=== PATIENT | male | born 1955 | race Caucasian/White ===

== ENCOUNTER 2018-04-14 13:56 | Inpatient (IN) ==
[2018-04-14] MEDS ORDERED: NITROGLYCERIN SL PRN (14:32)
[2018-04-14] MEDS: NORCO-10 PO PRN ×2 (15:46→21:57)
[2018-04-14 16:21] LABS: HEMATOCRIT 41.3 % (42.0-52.0); HEMOGLOBIN 14.7 g/dL (14.0-18.0); MCH 31.3 PG (27-31); MCHC 35.6 g/dL (33-37); MCV 87.9 FL (81-99); MPV 9.6 FL (7.4-10.4); RBC 4.7 XMIL (4.7-6.1); RDW 12.8 % (11.5-14.5); WBC 14.86 X1000 (4.8-10.8)
--- NOTE | 2018-04-14 16:36 | EKG Report ---
Test Performed on : 04/14/2018 3:58:10 PM Test Reason : Femoral artery occlusion Blood Pressure : / mmHG Vent. Rate : 094 BPM Atrial Rate : 094 BPM P-R Int : 160 ms QRS Dur : 102 ms QT Int : 372 ms P-R-T Axes : 072 068 068 degrees QTc Int : 465 ms Normal sinus rhythm. Normal ECG When compared with ECG of 13-NOV-2009 13:35, No significant change was found Confirmed by Lazara FLORES, Garcia Nicole ([id number]) on 04/14/2018 4:43:02 PM
[2018-04-14 16:44] LABS: ESTIMATED GFR > 60
[2018-04-14 16:46] LABS: AGAP 15; BUN 8 mg/dL (8-22); CALCIUM 8.7 mg/dL (8.8-10.2); CHLORIDE 83 mmol/L (98-107); COSMO 246; CREATININE 0.7 mg/dL (0.7-1.2); GLUCOSE 102 mg/dL (70-104); INR 1.7; POTASSIUM 3.6 mmol/L (3.5-5.1); PROTIME 21.3 Seconds (11.0-16.0); SODIUM 123 mmol/L (136-145); TCO2 25 mmol/L (25-35)
[2018-04-14] MEDS ORDERED: DULCOLAX PR ONE (17:33)
[2018-04-14 18:17] LABS: URINE SOURCE CATH
[2018-04-14 18:28] LABS: BILIRUBIN URINE NEGATIVE (NEGATIVE); BLOOD URINE MODERATE (NEGATIVE); COLOR YELLOW; GLUCOSE URINE NEGATIVE (NEGATIVE); KETONE URINE NEGATIVE (NEGATIVE); LEUKOCYTES URINE NEGATIVE (NEGATIVE); NITRITE URINE NEGATIVE (NEGATIVE); PROTEIN URINE TRACE mg/dL (NEGATIVE); TURBIDITY URINE CLEAR (CLEAR); UR EPITHELIAL CELLS <10 /HPF (<10); URINE BACTERIA NEGATIVE /HPF; URINE RBC <10 /HPF (<10); URINE WBC <10 /HPF (<10); UROBILINOGEN URINE 2 mg/dL (NORMAL)
[2018-04-14] MEDS: VENTOLIN HFA INH SCH (19:00)
[2018-04-14] MEDS: REQUIP PO SCH (21:56)
[2018-04-14] MEDS: LYRICA PO SCH (21:58)
[2018-04-15] MEDS: NORCO-10 PO PRN ×3 (03:38→19:49)
--- NOTE | 2018-04-15 07:43 | ECHO REPORT ---
ORDER DATE: 04/14/2018 INDICATIONS: A patient with severe peripheral vascular disease, hypertension. M-MODE MEASUREMENTS: Left ventricle end diastole: 4.9 cm. Left ventricle end systole: 2.7 cm. Posterior wall: 0.9 cm. Interventricular septum: 0.9 cm. Left atrium: 3.3 cm. Aortic root: 2.9 cm. SUMMARY OF 2-DIMENSIONAL IMAGIN. The left ventricular systolic function is excellent. Ejection fraction is estimated at 65%. There is no wall motion abnormality noted. 2. Aortic valve looks normal. Color flow mapping unremarkable. 3. Mitral valve looks normal. Color flow mapping indicates very mild degree of regurgitation. 4. Pulse wave Doppler of mitral inflow shows mild reversal of the E/A ratio. The ratio is 0.8. 5. Tissue Doppler of septal and lateral mitral annulus averages 10 cm. 6. There is no diastolic dysfunction. 7. Tricuspid valve looks normal. Color flow mapping indicates mild degree of regurgitation. 8. The inferior vena cava is not dilated. 9. Pulmonary artery pressure estimated at 23 mmHg. 10.Pulmonic valve looks normal. Color flow mapping unremarkable. 11.The atria are not dilated. 12.Pulse wave Doppler of pulmonary venous flow is normal. 13.There is no pericardial effusion, mass and no thrombus. SUMMARY: In summary, this echocardiographic study is well within normal range for this patient's age. Clinical correlation recommended. cc: MD Mynor Gonzales MD
[2018-04-15] MEDS: VENTOLIN HFA INH SCH (08:04)
[2018-04-15] MEDS: SPIRIVA INH SCH (08:05)
--- NOTE | 2018-04-15 08:32 | GENERAL SURGERY PROGRESS NOTE ---
DATE: 04/15/2018 SUBJECTIVE: Mr. Oro was admitted yesterday in preparation for surgery on 04/16/2018. We have stopped his Coumadin. He does report in the past 2 days the onset of left leg pain that is worse than his right leg pain. This is a new finding. OBJECTIVE: Today, he is noted to have some Doppler flow in his left femoral; no Doppler flow in the right femoral. His left lower extremity is cooler than the right. He already has known SFA occlusions bilaterally. His laboratory data reveals a sodium of 123, chloride of 83, so, we will put him on saline today to try to raise that. We will have blood available for surgery. His echo was done yesterday and found to be okay. Dr. Jones has seen him and evaluated him in the past in preparation for surgery and did not feel that any further intervention was indicated at this time for heart evaluation. We will plan to prepare things for tomorrow for surgery in hopes that we can get his graft open and salvage his legs. cc: Mynor Higgins MD
[2018-04-15] MEDS: NS 1,000 ML IV SCH ×2 (08:55→16:42)
[2018-04-15] MEDS: PRILOSEC PO SCH (08:59)
[2018-04-15] MEDS: ELAVIL PO SCH (08:59)
[2018-04-15] MEDS: IMDUR PO SCH (09:00)
[2018-04-15] MEDS ORDERED: PRAVACHOL PO SCH (09:00)
[2018-04-15] MEDS: FLOMAX PO SCH (09:00)
[2018-04-15 09:01] LABS: AGAP 10; BUN 9 mg/dL (8-22); CALCIUM 8.4 mg/dL (8.8-10.2); CHLORIDE 87 mmol/L (98-107); COSMO 251; CREATININE 0.7 mg/dL (0.7-1.2); ESTIMATED GFR > 60; GLUCOSE 115 mg/dL (70-104); POTASSIUM 4.3 mmol/L (3.5-5.1); SODIUM 125 mmol/L (136-145); TCO2 28 mmol/L (25-35)
[2018-04-15] MEDS: PRINIVIL PO SCH (09:01)
[2018-04-15] MEDS: AVODART PO SCH (09:01)
[2018-04-15] MEDS: LYRICA PO SCH ×2 (09:10→20:37)
--- NOTE | 2018-04-15 12:42 | Diag Imaging Result Doc PS360 ---
EXAM: CHEST-PORTABLE 04/15/2018 HISTORY: hyponatremia TECHNIQUE: AP portable at 1210 COMMENT: There is ill-defined opacity in the left base including the costophrenic angle. The lungs are not as well-expanded as on 11/12/2014. IMPRESSION: Left lower lobe pneumonia. Electronically signed by Montrell De Leon 04/15/2018 12:40 PM
[2018-04-15 13:17] LABS: HEMOGLOBIN A1C 5.9 % (4.8-6.0)
[2018-04-15 13:20] LABS: ALB/GLOB RATIO 0.7; ALBUMIN 2.6 g/dL (3.5-5.0); BASO# 0.03 X1000 (0.0-0.2); BASO% 0.2 % (0.0-0.8); DIRECT BILIRUBIN 0.2 mg/dL (0.00-0.20); EOS# 0.12 X1000 (0.0-0.7); EOS% 0.8 % (0.0-10.0); HEMATOCRIT 39.2 % (42.0-52.0); HEMOGLOBIN 13.4 g/dL (14.0-18.0); IMM GRAN# 0.06 X1000 (0.0-0.04); IMM GRAN% 0.4 % (0.0-0.5); LYMPH# 1.26 X1000 (1.2-3.4); LYMPH% 8.5 % (20.5-51.1); MCH 30.8 PG (27-31); MCHC 34.2 g/dL (33-37); MCV 90.1 FL (81-99); MONO# 0.66 X1000 (0.11-0.59); MONO% 4.4 % (1.7-9.3); MPV 9.4 FL (7.4-10.4); NEUT# 12.76 X1000 (1.4-6.5); NEUT% 85.7 % (42.2-75.2); PLT 288 X1000 (130-400); RBC 4.35 XMIL (4.7-6.1); RDW 13.1 % (11.5-14.5); TOTAL BILIRUBIN 0.43 mg/dL (0.20-1.00); TOTAL PROTEIN 6.3 g/dL (6.3-8.3); WBC 14.89 X1000 (4.8-10.8)
[2018-04-15] MEDS ORDERED: VANCOMYCIN IV PER PHARMACY MISC SCH (13:30)
[2018-04-15 13:44] LABS: ALLEN TEST NO; BE 0.8 mmoll (-3.0-3.0); BLOOD TYPE ARTERIAL; HCO3-(ACT) 25.3 mmoll (20.0-26.0); O2(CT) 17.8 mL/dL (15.0-23.0); PCO2(98.6) 39 mmHg (35-45); PO2(98.6) 60 mmHg (60-100); SAMPLE BLOOD; SAO2 93.3 % (95.0-100.0); THB 14.1 g/dL (11.5-17.4); pH(98.6) 7.42 (7.35-7.45)
[2018-04-15 13:51] LABS: O2HB 89.7 % (95.0-99.0)
[2018-04-15 13:52] LABS: MODALITY ROOM AIR
[2018-04-15] MEDS ORDERED: MAXIPIME 1 GM in NS 50 ML IV SCH (14:00)
[2018-04-15 14:09] LABS: CK INDEX 1.9 (0.0-2.5); CK-MB 27.38 ng/mL (0.0-5.0)
--- NOTE | 2018-04-15 14:11 | Diag Imaging Result Doc PS360 ---
EXAM: CT HEAD W/O CONTRAST INDICATION: ams TECHNIQUE: This exam was performed using automated exposure control, adjustment of mA or kV according to patient size, and/or use of iterative reconstruction technique. COMPARISON: None. FINDINGS: There is patchy low attenuation in the periventricular and subcortical white matter suggesting moderate microangiopathy. There is no definite acute infarct given the limited sensitivity of CT versus MRI. There is no discrete intracranial mass, mass effect, or intracranial hemorrhage. The surrounding soft tissues and bony structures are essentially unremarkable. IMPRESSION: Suggestion of moderate white matter microangiopathy. No definite acute intracranial pathology. Electronically signed by Jagdish Perdue 04/15/2018 2:09 PM
[2018-04-15] MEDS ORDERED: DUONEB (A & A) INH PRN (14:12)
[2018-04-15 14:21] LABS: EOS 1 % (1-10); LYMPHS 7 % (21-51); MONO 3 % (1-9); SEGS 89 % (42-75)
--- NOTE | 2018-04-15 14:29 | Diag Imaging Result Doc PS360 ---
EXAM: CT THORAX W/O CONTRAST INDICATION: ams, dyspnea TECHNIQUE: This exam was performed using automated exposure control, adjustment of mA or kV according to patient size, and/or use of iterative reconstruction technique. COMPARISON: 06/25/2016 FINDINGS: There are a couple of noncalcified nodules exhibiting mild spiculation in the anterior segment of the right upper lobe abutting the right middle lobe. However, these have exhibited stability for over 2 years and are assumed to represent nodular scarring. There are consolidations at both lung bases with mild bronchial mucous plugging suggesting pneumonia. There is also probably a component of atelectasis as well. There is very vague patchy mosaic attenuation in the right upper lobe suggesting interval air trapping. There is no pleural fluid collection and no pneumothorax. There is no cardiomegaly. There are several calcified mediastinal lymph nodes indicating prior granulomatous disease. Other shotty mediastinal lymph nodes are nonspecific and stable. Limited views of the upper abdomen are essentially unremarkable. IMPRESSION: 1.Consolidation at both lung bases with mild mucous plugging. 2.Other incidental/nonacute findings detailed above. Electronically signed by Jagdish Perdue 04/15/2018 2:26 PM
--- NOTE | 2018-04-15 15:27 | CONSULTATION ---
DATE OF CONSULTATION: 04/15/2018 CONSULTING PHYSICIAN: Dr. Aaron Carvalho. REASON FOR CONSULTATION: Hyponatremia and overall medical management. HISTORY OF PRESENT ILLNESS: Mr. Oro is a 62-year-old male with known coronary and severe peripheral arterial disease, who was directly admitted by Dr. Higgins for revascularization of the lower extremities. Initial labs yesterday showed he has hyponatremia with a sodium of 123. He was also noted to have a white count of 14,000. Dr. Carvalho saw him today for cardiac clearance and overall cardiac management as the patient does have known coronary disease. He asked us to follow along as well for his sodium. When we entered the room and started talking to the patient, it was clear that he was encephalopathic. He was drowsy, sometimes falling asleep mid sentence. Also, clearly confused. He was not able to give us the correct year or who our current President is. He was also having trouble with his left lower extremity as far as motor skills. We have ordered multiple diagnostics. Initial chest x-ray shows left lower lobe pneumonia. Head CT is negative for acute process. His laboratory data has multiple abnormalities, including leukocytosis this afternoon with a white count of 14.89. He also still has hyponatremia with a sodium of 125. He has elevated liver function tests and a CK of 1400. Interestingly, the patient was seen in [place] ER around three weeks ago, at which time he was complaining of urinary hesitancy. He was discharged with instructions to follow up with Dr. Cummings, which he has not done. At that time, he had a CK of 2600, that has decreased but he is still in the rhabdomyolysis range with a CK of 1472. Overall, we have been asked to follow along for medical management, specifically looking at his hyponatremia. PAST MEDICAL HISTORY: 1. Severe vasculopathy with severe PAD. 2. Coronary disease. 3. Nicotine dependence. 4. BPH. 5. Hypertension. 6. Hyperlipidemia. 7. Coumadin therapy for reasons unknown at this time, presumably secondary to severe PAD. We cannot find a history of PTE or atrial fibrillation. 8. Peripheral neuropathy. SURGICAL HISTORY: He has had a heart cath with stenting, right inguinal hernia repair. SOCIAL HISTORY: Smokes pack and a half a day. He is . Denies drug or alcohol use. FAMILY HISTORY: Noncontributory. REVIEW OF SYSTEMS: Difficult to obtain, but a limited 10-point review of systems was obtained and found to be negative with the exception of the HPI. ALLERGIES: No known drug allergies. CURRENT MEDICATIONS: Please see MAR. PHYSICAL EXAMINATION: Vital signs: Blood pressure is 128/61, heart rate is 77 , respiratory rate is 18, O2 saturation 97% on nasal cannula, temperature is 97.6. General: This is a chronically ill and disheveled appearing 62-year-old male lying in the hospital bed in no acute distress. Neurologic: The patient is encephalopathic. He does follow commands and has no apparent motor movement of the left lower extremity. He also has severely diminished sensory changes to the lower extremities. Other than the left lower extremity, no other focal deficits noted. HEENT: Head is atraumatic and normocephalic. His pupils are equal, round and reactive to light. Oral mucosa is moist. Trachea is midline. Neck: Supple. There is no JVD. Chest: Coarse bilaterally, left greater than right. CV: Regular rate and rhythm. S1, S2 noted. There are no murmurs. GI: Soft. Nondistended. Nontender. Bowel sounds are hypoactive. Extremities: Left lower extremity with no pulse, even with Doppler. The foot is almost completely white. He has some pretibial edema, this is trace. His right lower extremity also has trace edema but there are better pulses. Both lower extremities are cool to touch. Capillary refill is greater than three seconds bilaterally. DIAGNOSTIC DATA: Head CT with chronic changes, nothing acute. Chest x-ray with left lower lobe pneumonia. CT of the chest is pending. EKG shows normal sinus rhythm without acute ST or T abnormalities. WBC 14.89, hemoglobin 13.4, hematocrit 39.2. ABG on room air, pH 7.42, CO2 39, O2 60, bicarb 25.3, oxyhemoglobin 89.7. Chemistries with sodium 125, potassium 4.3, chloride 87, CO2 of 20, anion gap 10, BUN 9, creatinine 0.7, glucose 115. Hemoglobin A1c 5.9. Serum osmolality is 265. Calculated osmolality is 251. Calcium 8.4. Total bilirubin 0.43, AST 69, ALT 46, alkaline phosphatase 129. CK 1472. CK-MB 27.38 with a CK index of 1.9. Albumin 2.6. Urine from yesterday shows a specific gravity of 1.000; moderate blood; 2A urobilinogen. ASSESSMENT AND PLAN: 1. Toxic metabolic encephalopathy: Unclear as to the source. Head CT is negative. He is not overtly hypoxic but we are adding oxygen. Possibility of bacteremia exists as well as hepatic encephalopathy. He has pneumonia and could be a constellation of all of the above plus the hyponatremia. Will check an ammonia level. Add antibiotics for pneumonia. Add campuzano cultures. Will monitor. If no improvement, he may need an MRI. 2. Severe peripheral arterial disease, left greater than right: Dr. Higgins is aware. The plan is to take him to surgery in the near future. If not, he may need heparin drip. 3. Left lower lobe pneumonia: Blood cultures have been ordered. Continue cefepime and vancomycin. CT of the chest is pending. Continue oxygen, DuoNeb, and aggressive pulmonary toilet. 4. Rhabdomyolysis: Probably secondary to the left lower extremity ischemia. However, he is on a statin, which we will stop. We will check CK and sodium every six hours. 5. Hyponatremia: Overall, the patient does not appear hypovolemic. He has a serum osmolality of 265 as well as urine specific gravity of 1.000. We are awaiting urine sodium and urine osmolality to make a full evaluation and we are checking CT of the thorax to evaluate for any malignancy. It does not appear that he is on any sodium lowering medications. Will monitor closely. He is on fluids, which for now we will continue. 6. Elevated liver function tests: Again, unclear as to the etiology. He denies any abdominal pain. He is on a statin, which we will stop and trend his liver functions daily. We are checking an ammonia level. Hepatitis panel in the morning. Will go from there. He denies alcohol use. We would like to thank you for this consultation. Will continue to follow along with you. Dictated by HERMELINDA Gamboa for Florentino Nance MD Addendum: Patient seen and examined by myself. Agree with HERMELINDA note. It reflects my assessment and plan. Patient is being admitted to hospital for a revascularization surgery. We found out he has a bilateral pneumonia and rhabdomyolysis that was not treated in his last ED visit. He also has hyponatremia and with history of lung nodule I am concerned about lung cancer considering his history of smoking. Will order CT chest, will provide IV fluids, broad spectrum IV antibiotics and monitor this patient closely. cc: HERMELINDA Gamboa MD Robert C. Walker, MD MTDD
[2018-04-15] MEDS: DUONEB (A & A) INH SCH ×3 (15:47→22:35)
[2018-04-15] MEDS ORDERED: VANCOMYCIN 2 GM in NS 500 ML IV ONE (16:00)
[2018-04-15] MEDS: MAXIPIME 2 GM in NS 50 ML IV SCH (16:30)
[2018-04-15] MEDS: M.V.I.-12 10 ML, FOLIC ACID 1 MG, MAGNESIUM SULFATE 1 GM, THIAMINE 100 MG in NS 1,000 ML IV SCH (16:34)
--- NOTE | 2018-04-15 19:42 | CARDIOLOGY CONSULTATION ---
DATE: 04/15/2018 CHIEF COMPLAINT ON PRESENTATION: The patient was apparently admitted for operative intervention to severe peripheral vascular disease in his bilateral lower extremities. HISTORY OF PRESENT ILLNESS: Mr. Oro is a 62-year-old white male with a history of coronary disease and severe peripheral vascular disease. He has had no recent evaluations in ERs where he has been complaining of severe bilateral leg pain. He is relatively inactive secondary to this. The patient denies any acute complaints presently. He was last seen in Dr. Jones's office on 04/02/2018, at which time he had severe leg pain. He was referred over to Dr. Higgins and had severe bilateral lower extremity vascular disease. He is not having any exertional chest pain, but the patient is extremely inactive at baseline. He denies any significant orthopnea. PAST MEDICAL HISTORY: 1. Significant for coronary artery disease. His last cardiac catheterization was in 2007. He had a less than 20% ostial left main. LAD had a 25% to 30% lesion after the takeoff of a first diagonal. The diagonal had a 60% lesion. Circumflex had a tubular 25% lesion. RCA had proximal regularities on the order of 20% to 25%. His ejection fraction on that study was 65% to 70%. His last nuclear scan was in March 2016 and that demonstrated normal perfusion with an ejection fraction of 72%. 2. COPD. 3. Hypertension. 4. Hyperlipidemia. 5. Continued tobacco abuse. 6. Severe peripheral vascular disease. His most recent CTA of the aorta with runoffs showed complete obstruction of the right iliac arterial system with both the [place] and the graft system. He had complete occlusion of the right superficial femoral artery. The left aorta- common femoral graft was patent. However, the left superficial femoral artery is completely occluded. SOCIAL HISTORY: The patient apparently continues to smoke. FAMILY HISTORY: Significant for hypertension. REVIEW OF SYSTEMS: A 10-system review of systems is negative. PHYSICAL EXAMINATION: Vital Sign: The patient is afebrile. His heart rate is 77. His blood pressure is 128/61. General: He is in no acute distress. He is somewhat sedate, mildly confused. HEENT: Eye examination is pink conjunctivae. White sclerae. Neck: Examination shows no obvious thyromegaly or thyroid tenderness. Cardiovascular: He sounds to be in a regular rate and rhythm. He has no obvious murmurs present. His JVP is less than 8 cm of water. He has cool bilateral lower extremities with pulses that are not readily palpable. Chest: Exam has a poor inspiratory effort diffusely. No obvious increased work of breathing. No obvious abnormal sounds. Abdomen: Soft, nontender, nondistended. He has no obvious organomegaly. Skin: Exam is warm and dry throughout without any rashes with the exception of the cool bilateral distal lower extremities. PERTINENT DATA: His head CT demonstrates suggestion of moderate white matter microangiopathy. His chest CT is pending. His chest x-ray is suggestive of a left lower lobe pneumonia. He had an electrocardiogram scanned into the system from yesterday demonstrating sinus rhythm. His laboratory data demonstrates a white count of 14.8, his hematocrit is 39, his platelet count is 288,000. His ABG shows a pH of 7.42, pCO2 of 39, PO2 of 60. His lactate on that study was 0.9. His sodium is 125, potassium 4.3, his BUN is 9, creatinine 0.7. His CK today is 1472 with an MB fraction of 27. His LDL is 30. His TSH is 0.4. His albumin is 2.6. ASSESSMENT: Mr. Oro is a 62-year-old gentleman with severe peripheral vascular disease, likely with rest ischemia. PLAN: From a cardiovascular standpoint, there do not seem to be any acute cardiac conditions limiting his ability to go to the operating room. He certainly has a relatively urgent reason for revascularization. His sodium is low. The hospitalist service has been consulted to help assist with the patient. I appreciate their recommendations. His chest CT is currently pending. His chest x-ray is certainly suggestive of a possible left lower lobe pneumonia. He had an echocardiogram done yesterday that demonstrated a normal ejection fraction and no real significant valvular abnormalities. We will continue to follow along. cc: MD Mynor Sin MD
[2018-04-15] MEDS: REQUIP PO SCH (20:37)
[2018-04-15] MEDS ORDERED: CALAMINE LOTION TOP PRN (20:56)
[2018-04-15] MEDS ORDERED: CALMOSEPTINE OINTMENT TOP PRN (22:44)
[2018-04-16] MEDS: DUONEB (A & A) INH SCH ×6 (02:35→23:02)
[2018-04-16] MEDS ORDERED: MAXIPIME ONE (02:46)
[2018-04-16] MEDS: MAXIPIME 2 GM in NS 50 ML IV SCH ×2 (02:46→13:47)
[2018-04-16] MEDS: NS 1,000 ML IV SCH (03:53)
[2018-04-16] MEDS ORDERED: VANCOMYCIN 1.5 GM in NS 250 ML IV SCH (04:00)
[2018-04-16] MEDS: NORCO-10 PO PRN ×4 (05:44→23:53)
[2018-04-16] MEDS ORDERED: KEFZOL ONE (06:30)
[2018-04-16] MEDS ORDERED: HEPARIN ONE ×2 (06:30)
[2018-04-16] MEDS ORDERED: NS 2,000 ML ONE (06:31)
[2018-04-16] MEDS ORDERED: XYLOCAINE-MPF 2% ONE (06:39)
[2018-04-16] MEDS ORDERED: DIPRIVAN 1% ONE (06:39)
[2018-04-16 07:00] LABS: BASO# 0.03 X1000 (0.0-0.2); BASO% 0.2 % (0.0-0.8); EOS# 0.11 X1000 (0.0-0.7); EOS% 0.7 % (0.0-10.0); HEMATOCRIT 38.5 % (42.0-52.0); HEMOGLOBIN 13.1 g/dL (14.0-18.0); IMM GRAN# 0.06 X1000 (0.0-0.04); IMM GRAN% 0.4 % (0.0-0.5); LYMPH# 1.05 X1000 (1.2-3.4); LYMPH% 6.8 % (20.5-51.1); MCH 31.3 PG (27-31); MCV 92.1 FL (81-99); MONO# 0.59 X1000 (0.11-0.59); MONO% 3.8 % (1.7-9.3); MPV 9.5 FL (7.4-10.4); NEUT# 13.51 X1000 (1.4-6.5); NEUT% 88.1 % (42.2-75.2); PLT 285 X1000 (130-400); RBC 4.18 XMIL (4.7-6.1); RDW 13.5 % (11.5-14.5); WBC 15.35 X1000 (4.8-10.8)
[2018-04-16] MEDS ORDERED: KEFZOL 1 GM/D5W 1 GM/50 ML IVPB ONE (07:16)
[2018-04-16 07:20] LABS: LYMPHS 8 % (21-51); MONO 10 % (1-9); SEGS 82 % (42-75)
[2018-04-16 07:23] LABS: AGAP 12; ALB/GLOB RATIO 0.7; ALBUMIN 2.6 g/dL (3.5-5.0); ALKALINE PHOSPHATASE 137 U/L (32-122); BUN 8 mg/dL (8-22); CALCIUM 8.3 mg/dL (8.8-10.2); CHLORIDE 98 mmol/L (98-107); COSMO 264; CREATININE 0.6 mg/dL (0.7-1.2); ESTIMATED GFR > 60; GLUCOSE 93 mg/dL (70-104); GOT 76 U/L (10-34); GPT 48 U/L (10-44); MAGNESIUM 2.2 mg/dL (1.5-2.7); POTASSIUM 4.1 mmol/L (3.5-5.1); SODIUM 133 mmol/L (136-145); TCO2 23 mmol/L (25-35); TOTAL BILIRUBIN 0.54 mg/dL (0.20-1.00); TOTAL PROTEIN 6.2 g/dL (6.3-8.3)
[2018-04-16] MEDS ORDERED: NEO-SYNEPHRINE ONE (07:32)
[2018-04-16] MEDS: SPIRIVA INH SCH (07:35)
[2018-04-16] MEDS ORDERED: NS 500 ML ONE (08:21)
[2018-04-16] MEDS ORDERED: SENSORCAINE-MPF 0.5%/EPI 1:200,000 ONE (08:46)
[2018-04-16] MEDS ORDERED: NEOSTIGMINE ONE (08:57)
[2018-04-16] MEDS ORDERED: NS 1,000 ML IV SCH (09:30)
--- NOTE | 2018-04-16 09:30 | OPERATIVE NOTE ---
PROCEDURE DATE: 04/16/2018 PROCEDURE: Thrombectomy of both limbs aortobifemoral graft with patch angioplasty of the left common femoral artery. SURGEON: Mynor Higgins MD [employer] COMBINATION: Apolinar Zamora PREOPERATIVE DIAGNOSIS: Thrombosis of the right limb of the aortobifemoral graft with limb ischemia. POSTOPERATIVE DIAGNOSIS: Thrombosis of both limbs of the aortobifemoral graft with bilateral limb ischemia, left worse than the right. INDICATIONS FOR PROCEDURE: This is a 62-year-old who has a history of an aortobifemoral bypass and now has limb ischemia. His aortogram a month ago revealed a right limb occlusion, but now he has more ischemia of the left leg than the right. DESCRIPTION OF PROCEDURE: Satisfactory general endotracheal anesthesia was achieved. The chest, abdomen, and legs down to below the knees were prepped and draped in a sterile fashion. An [place] drape was used. Prophylactic Kefzol was given. We made a vertical incision in the right groin, dissected down to the old graft, and we identified the superficial femoral and deep femoral vessels, and surrounded them with vessel loops. We gave the patient 8000 units of heparin. I then incised the skin on the left side as well and dissected down to the inguinal ligament, and the graft on the left came just under the inguinal ligament and barely past the inguinal ligament, and was sewn to the left common femoral. The bifurcation of the common femoral was further down. The profunda was identified and surrounded with a vessel loop. A small hole in the vein was closed with a 5-0 Prolene [id number] stitch. After the heparin had circulated, we turned our attention back to the right side. I made a vertical incision in the graft jack. We passed the 4 Tiffany into the profunda and we extracted clot until we got backbleeding. I then passed a 3, 3.5, 4, 4.5, and even a 5 dilator down the profunda and got backbleeding down from the profunda. The superficial femoral was occluded. We passed a 5 Tiffany proximally and it went all the way into the aorta. We did extract some clot, but we never got really vigorous flow. We just got a little bit of flow. So, I then obtained a graft thrombectomy catheter, passed it up the graft and then engaged it, and, in fact, retrieved the thrombus and there was an old stent attached to this thrombectomy catheter that we removed. Following removal of that, we had vigorous antegrade flow. So, we clamped off the graft and I then sewed the graftotomy closed with a 5-0 Prolene stitch and we allowed flow from the graft down the profunda. An antibiotic sponge was placed. We then turned our attention to the left side. We then opened the graft on the left side and extend it into the [place] common femoral. We did have backbleeding from the profunda. We passed 3, 3.5, 4, and 4.5 down the profunda and had good backbleeding from the profunda. We then clamped off the profunda. We then passed our 5 Tiffany proximally and we extracted what was really pretty fresh clot. After a couple of passes of it and the fresh thrombus removed from the left limb, we then had excellent vigorous antegrade flow. We then clamped off the graft. We then used a 1 x 6 bovine patch and patched this down to the common femoral artery from the toe of the graft. We had to extend our incision onto common femoral and we used a 5-0 Prolene stitch to do this patch angioplasty. Following it, we then allowed flow in the graft down into the profunda. One small bleeding point on the profunda required a 5-0 Prolene stitch, which achieved hemostasis in the profunda. So, we had reinstituted flow down the aortobifemoral graft into both femorals with runoff into the deep femorals bilaterally. We irrigated out the wounds with Kefzol-impregnated saline. We then closed the groins in 2 layers using a 2-0 Polysorb stitch. We injected both with 0.5 Marcaine with epinephrine and closed the skin on both sides with 4-0 Polysorb subcuticular stitch. Drawtex OpSite dressings were applied. He tolerated it well. It is estimated the blood loss was about 300 mL. He was sent to the recovery room in satisfactory condition. cc: MD Mingo Pace MD MTDD
[2018-04-16] MEDS ORDERED: DILAUDID ONE (10:14)
[2018-04-16] MEDS: VANCOMYCIN 1.7 GM in NS 250 ML IV SCH (11:36)
[2018-04-16] MEDS: LYRICA PO SCH ×2 (11:38→22:53)
[2018-04-16] MEDS: PRILOSEC PO SCH (11:38)
[2018-04-16] MEDS: AVODART PO SCH (11:38)
[2018-04-16] MEDS: ELAVIL PO SCH (11:39)
[2018-04-16] MEDS: PRINIVIL PO SCH (11:39)
[2018-04-16] MEDS: IMDUR PO SCH (11:39)
[2018-04-16] MEDS: FLOMAX PO SCH (11:40)
[2018-04-16] MEDS: M.V.I.-12 10 ML, FOLIC ACID 1 MG, MAGNESIUM SULFATE 1 GM, THIAMINE 100 MG in NS 1,000 ML IV SCH (11:43)
[2018-04-16] MEDS ORDERED: HEPARIN IV ONE (12:14)
[2018-04-16] MEDS: HEPARIN 25,000 UNITS/D5W 25,000 UNIT/250 ML IV.SOLN IV SCH (12:18)
--- NOTE | 2018-04-16 13:25 | PROGRESS NOTE ---
DATE: 04/16/2018 OVERNIGHT EVENTS: The patient underwent vascular surgery today. According to the surgeon's note, both of his grafts in both of his lower extremities were occluded. He underwent thrombectomy. He has been started on heparin drip after that. SUBJECTIVE: Today, he appears alert. He is drowsy after surgery. However, he is oriented x3 and answers all the questions appropriately. is at bedside with a surrogate decision maker. All of her questions have been answered. The patient currently complained, denies any chest pain or shortness of breath. He does complain of pain in both of his legs. He also feels that he has numbness affecting left lower extremity. Current vitals suggests temperature was 97.5 degrees today morning. His pulse has been 90s, blood pressure 130/63, saturating 100% on 3 L nasal cannula. PHYSICAL EXAMINATION: General: Does not appear in acute distress. Oral cavity is moist. Lungs: Air entry bilaterally equal. He does have distant appearing breath sound without any wheeze or rhonchi. He does have bilateral infrascapular region crackles. Cardiovascular: S1, S2 normal. No murmur, rub, or gallop. Abdomen: Soft, nontender. Lower Extremities: He has pallor affecting left foot. He also has small blisters, 2 in number, about 2 x 2 cm affecting left foot dorsal aspect. He also had about 3 x 3 cm what appears to me as ischemic ulcer on the lower part of barfield. Both feet are cold to touch bilaterally. I could not appreciate any dorsalis pedis or posterior tibial pulses. He also has edema left foot more than right. Apparently, I was informed by the nursing at the bedside that his pulses were checked multiple times in the post anesthesia care unit by the surgeon and he is aware. The patient has been started on heparin drip. LABS: Today suggestive of persistent leukocytosis, normocytic anemia, resolving hyponatremia. Normal kidney function. Persistent transaminitis. ASSESSMENT AND PLAN: 1. Acute toxic metabolic encephalopathy on presentation because of bilateral pneumonia, severe hyponatremia and bilateral lower extremity pain. CT scan of head had moderate chronic microvascular ischemic changes without any acute pathology. His encephalopathy now appears to have resolved. No need of MRI at the moment. 2. Severe hyponatremia, likely hypovolemic hyponatremia based on urine sodium osmolality testing, now resolving after intravenous fluid resuscitation. The patient does report poor p.o. intake prior to presentation, which might have contributed to it. 3. Bilateral lower lobe pneumonia based on CT. Continue intravenous vancomycin and cefepime. 4. Severe peripheral arterial disease with history of aortobifemoral graft. He is now status post thrombectomy of both limbs of aortobifemoral graft with patch angioplasty of left common femoral artery. Continue intravenous heparin as per surgery recommendation. Continue home amitriptyline, cyclobenzaprine, pregabalin for pain control. 5. Rhabdomyolysis and transaminitis on presentation. Hold statin for now. We will continue to follow his liver function tests. This could be in the setting of pneumonia and possible sepsis, though he does not meet sepsis criteria. In the future, I might consider getting ultrasound of his right upper right upper quadrant if his LFTs worsen. 6. History of COPD. Continue albuterol, ipratropium, nebulization, tiotropium, currently not in exacerbation. 7. History of benign prostatic hypertrophy. Continue home tamsulosin and dutasteride. 8. History of chronic GERD. Continue home omeprazole. 9. History of coronary artery disease. His echocardiogram suggests ejection fraction of 65% without any regional wall motion abnormalities. Cardiology on board. 10. Hypertension. Continue home lisinopril and isosorbide. 11. Hypochloremia on admission, now resolved. DISPOSITION: The patient remains inside the hospital status post vascular surgery. We will continue to monitor him. Plan of care were discussed with the patient and his with a surrogate decision maker at bedside. All of the questions were answered. cc: Mingo Bolanos MD
--- NOTE | 2018-04-16 14:34 | CARDIOLOGY PROGRESS NOTE ---
DATE: 04/16/2018 SUBJECTIVE: Mr. Oro underwent his operative procedure today. He seems to be doing well. He has no pain complaints. PHYSICAL EXAMINATION: Vital Signs: Presently physically he is afebrile. His heart rate is in the 90s to low 100s. His blood pressure is 131/63. General: He is in no acute distress. Cardiovascular: He sounds to be in a mildly tachycardic rhythm. This is consistent with his telemetry which shows mild sinus tachycardia in the low 100s. He has no significant lower extremity edema. Chest: His chest exam sounds clear bilaterally. He has no increased work of breathing. Abdomen: Soft, nontender. PERTINENT DATA: White count is 15.3, his hematocrit is 38, platelet count is 285,000. His sodium is 133, potassium 4.1, BUN 8, creatinine 0.6. His AST is 76, ALT 48. His LDL yesterday was 30. ASSESSMENT: Mr. Oro is a 62-year-old gentleman with severe peripheral vascular disease who underwent revascularization procedure. PLAN: At this point, I will continue the patient's atorvastatin. I do not have any other further recommendations presently. We will continue to follow along from a distance. cc: MD Minog Sin MD
--- NOTE | 2018-04-16 16:03 | GENERAL SURGERY PROGRESS NOTE ---
DATE: 04/16/2018 SUBJECTIVE: It is 3:27 in the afternoon. He is sleepy, but he arouses. His legs are definitely warmer than they were preop. His bandages are dry. He is on a heparin drip. We will get a hemoglobin and hematocrit on him. cc: MD Mingo Pace MD
[2018-04-16 16:17] LABS: HEMATOCRIT 31.2 % (42.0-52.0); HEMOGLOBIN 10.5 g/dL (14.0-18.0)
[2018-04-16] MEDS: REQUIP PO SCH (22:53)
[2018-04-17] MEDS: VANCOMYCIN 1.7 GM in NS 250 ML IV SCH ×2 (03:06→22:47)
[2018-04-17] MEDS: DUONEB (A & A) INH SCH ×6 (03:44→22:40)
[2018-04-17] MEDS: NORCO-10 PO PRN ×5 (03:57→22:47)
[2018-04-17] MEDS: MAXIPIME 2 GM in NS 50 ML IV SCH ×2 (06:31→14:35)
[2018-04-17 07:10] LABS: BASO# 0.03 X1000 (0.0-0.2); BASO% 0.2 % (0.0-0.8); EOS# 0.15 X1000 (0.0-0.7); HEMATOCRIT 30.1 % (42.0-52.0); HEMOGLOBIN 10.2 g/dL (14.0-18.0); IMM GRAN# 0.05 X1000 (0.0-0.04); IMM GRAN% 0.3 % (0.0-0.5); LYMPH# 1.43 X1000 (1.2-3.4); LYMPH% 9.8 % (20.5-51.1); MCH 31.6 PG (27-31); MCHC 33.9 g/dL (33-37); MCV 93.2 FL (81-99); MONO# 0.54 X1000 (0.11-0.59); MONO% 3.7 % (1.7-9.3); MPV 9.5 FL (7.4-10.4); NEUT# 12.44 X1000 (1.4-6.5); PLT 240 X1000 (130-400); RBC 3.23 XMIL (4.7-6.1); RDW 13.5 % (11.5-14.5); WBC 14.64 X1000 (4.8-10.8)
[2018-04-17 07:20] LABS: AGAP 10; ALB/GLOB RATIO 0.8; ALBUMIN 2.2 g/dL (3.5-5.0); ALKALINE PHOSPHATASE 139 U/L (32-122); BUN 5 mg/dL (8-22); CHLORIDE 99 mmol/L (98-107); COSMO 262; CREATININE 0.6 mg/dL (0.7-1.2); ESTIMATED GFR > 60; GLUCOSE 100 mg/dL (70-104); GOT 111 U/L (10-34); GPT 51 U/L (10-44); MAGNESIUM 2.1 mg/dL (1.5-2.7); POTASSIUM 3.6 mmol/L (3.5-5.1); SODIUM 132 mmol/L (136-145); TCO2 23 mmol/L (25-35); TOTAL BILIRUBIN 0.44 mg/dL (0.20-1.00); TOTAL PROTEIN 5.1 g/dL (6.3-8.3)
[2018-04-17] MEDS: SPIRIVA INH SCH (07:41)
--- NOTE | 2018-04-17 09:49 | GENERAL SURGERY PROGRESS NOTE ---
DATE: 04/17/2018 TIME SEEN: 9:05 in the morning. Mr. Oro is sitting up, doing generally well. He is afebrile. Heart rate is 90, blood pressure 125/53, he has O2 saturation of 100% on nasal oxygen. His bandages are dry. His legs are warmer than they were preop. His white count is 14,600, hemoglobin 10.2, hematocrit 30. PTT 69. Sodium 132, chloride 99. PLAN: Will be to start him back on Coumadin. Stop his heparin when he is adequately anticoagulated on Coumadin. I will get the urologist to see him because he came in with an indwelling Gary that was apparently placed about 2 weeks ago and I think they have seen him as an outpatient. Hopefully, we can get his Gary out. As soon as his ProTime is out adequately on warfarin, then he can go home. Dr. Manley to cover the weekend. cc: MD Mingo Pace MD
[2018-04-17] MEDS: ELAVIL PO SCH (10:38)
[2018-04-17] MEDS: FLOMAX PO SCH (10:38)
[2018-04-17] MEDS: PRINIVIL PO SCH (10:39)
[2018-04-17] MEDS: AVODART PO SCH (10:39)
[2018-04-17] MEDS: IMDUR PO SCH (10:39)
[2018-04-17] MEDS: M.V.I.-12 10 ML, FOLIC ACID 1 MG, MAGNESIUM SULFATE 1 GM, THIAMINE 100 MG in NS 1,000 ML IV SCH (10:40)
[2018-04-17] MEDS: PRILOSEC PO SCH (10:40)
[2018-04-17 11:11] LABS: HEPATITIS PROFILE ACUTE SEE COMMENTS
[2018-04-17] MEDS: LIPITOR PO SCH (11:30)
[2018-04-17] MEDS: LYRICA PO SCH ×2 (11:31→21:32)
[2018-04-17] MEDS: FLEXERIL PO PRN (13:55)
[2018-04-17] MEDS: HEPARIN 25,000 UNITS/D5W 25,000 UNIT/250 ML IV.SOLN IV SCH (14:36)
--- NOTE | 2018-04-17 14:49 | PROGRESS NOTE ---
DATE: 04/17/2018 OVERNIGHT: No acute events. He was continued on heparin drip and warfarin was also added. He was evaluated by surgery who recommended continued management. SUBJECTIVE: The patient is experiencing excruciating pain especially in left lower extremity. He also has pain at the site of surgical sharron on the right groin. He denies being an alcoholic. He states that he had urinary tract infection about a month ago after which he was discharged on Gary catheter. He denies feeling chest pain or having shortness of breath. OBJECTIVE: Vital Signs: Temperature 98.5, pulse 106 per minute, blood pressure 138/55. Saturating 100% on room air. PHYSICAL EXAMINATION: General: Appears in mild distress because of pain. Oral cavity is moist. Lungs: Air entry bilaterally equal. Distant. breath sounds without any wheeze, rhonchi or crackles. Cardiovascular: S1, S2 normal. No murmur, rub, or gallop. Abdomen is soft, nontender. Lower Extremities: He has mottling and pallor affecting bilateral lower extremities; however, both extremities appear normal to touch. I could not appreciate dorsalis pedis pulses; however, I could not press down to displace the edema fluid on the left because of excruciating pain. He is able to perform dorsiflexion, plantar flexion on the right foot; however, that is restricted on the left because of his excruciating pain. He does have intact sensation bilaterally. In fact, he has hyperesthesia affecting the left lower extremity. He has edema affecting the left foot and leg. He has a Gary catheter in place. LABORATORY DATA: Labs today suggestive of persistent leukocytosis, hemoglobin of 10.2. He does not have immature granulocyte increased though. His platelet count is 240,000. Electrolytes suggestive of hyponatremia of 132, carbon dioxide of 23, and normal kidney function. Calcium of 8. He continues to have elevated AST, ALT, and alkaline phosphatase. His hepatitis panel, however, has been nonreactive. On arrival, his alcohol level was also undetectable. ASSESSMENT AND PLAN: 1. Acute toxic metabolic encephalopathy on presentation because of bilateral pneumonia, severe hyponatremia, and bilateral lower extremity pain. CT scan had moderate microvascular ischemic changes without an acute pathology. His encephalopathy now appears to have resolved. No need of MRI. 2. Severe hyponatremia, likely hypovolemic hyponatremia based on urine sodium and osmolality testing; now have improved. Continue intravenous fluid and encourage p.o. intake. 3. Bilateral lower lobe pneumonia based on chest CT. Continue intravenous vancomycin and cefepime. He denies feeling acute shortness of breath, though he is requiring oxygen. We will wean down oxygen as tolerated. 4. History of severe peripheral arterial disease with aortofemoral graft, now status post thrombectomy of both limbs of the aortobifemoral graft with patch angioplasty of the left common femoral artery. Continue intravenous heparin and start p.o. warfarin. Stop heparin once INR is therapeutic for about 24 hours. Continue home amitriptyline, cyclobenzaprine, pregabalin for pain control. I will add IV morphine for severe pain considering his excruciating pain at the moment. 5. History of chronic obstructive pulmonary disease. Continue albuterol ipratropium nebulization. 6. History of urinary retention and Gary catheter since the last 4 weeks. Continue his home tamsulosin and dutasteride. Urology consult with Dr. Coon will be requested for his Gary catheter management. 7. History of essential hypertension. Continue Imdur and lisinopril. 8. Hyperlipidemia. Continue home atorvastatin. 9. Continue home omeprazole for gastroesophageal reflux disease. 10. Hypochloremia, now resolved. DISPOSITION: The patient remains inside the hospital for intravenous heparin and achieving therapeutic INR. PLAN: Plan of care was discussed with the patient. All of his questions were answered. cc: Mingo Bolanos MD MTDD
--- NOTE | 2018-04-17 15:10 | CARDIOLOGY PROGRESS NOTE ---
DATE: 04/17/2018 SUBJECTIVE: Mr. Oro reports continued discomfort in his bilateral lower extremities, but he feels this has gotten better successively after his operation. He has a mildly cool distal right extremity and left lower extremity is warm. He has no chest pain. Denies any shortness of breath. OBJECTIVE: Vital Signs: On physical examination, he is afebrile. His heart rate is in the 80s to low 100s. His blood pressure is 138/55. General: He is in no acute distress. Cardiovascular: He sounds to be in a regular rate and rhythm. I do not hear any obvious murmurs. Again, extremity warmth as detailed above in the HPI. His chest exam has mild reduction in breath sounds in the bases. He has a poor inspiratory effort. The patient does not really cooperate with the exam that well. Abdomen: Soft, nontender. PERTINENT DATA: His white count is 14.6 which has been roughly stable over the last 4 checks; hematocrit 30, platelet count is 240. His sodium is 132 which is relatively stable. BUN and creatinine are 5 and 0.6. His albumin level is 2.2. ASSESSMENT: Mr. Oro is a 62-year-old gentleman who underwent operative intervention for severe bilateral lower extremity peripheral vascular disease. He had a thrombectomy of the aortobifemoral graft with patch angioplasty of the left common femoral artery. PLAN: The patient's blood pressure seems to be reasonably well controlled. From a cardiac standpoint, he is not having any symptoms suggesting ischemia. The patient is maintained on high- intensity statin at 40 mg daily. He is maintained on warfarin as well. He continues on a heparin drip. He has not had an INR recently. We will ensure he has one ordered for the morning. cc: MD Mingo Sin MD
[2018-04-17] MEDS: COUMADIN PO SCH (21:33)
[2018-04-17] MEDS: REQUIP PO SCH (21:33)
[2018-04-17] MEDS: MORPHINE IV PRN (21:33)
[2018-04-18] MEDS: MAXIPIME 2 GM in NS 50 ML IV SCH (02:17)
[2018-04-18] MEDS: DUONEB (A & A) INH SCH ×6 (02:45→23:25)
[2018-04-18 06:20] LABS: BASO# 0.03 X1000 (0.0-0.2); BASO% 0.2 % (0.0-0.8); EOS# 0.21 X1000 (0.0-0.7); EOS% 1.5 % (0.0-10.0); HEMATOCRIT 31.4 % (42.0-52.0); HEMOGLOBIN 10.4 g/dL (14.0-18.0); IMM GRAN# 0.05 X1000 (0.0-0.04); IMM GRAN% 0.4 % (0.0-0.5); LYMPH# 1.44 X1000 (1.2-3.4); LYMPH% 10.3 % (20.5-51.1); MCH 31.4 PG (27-31); MCHC 33.1 g/dL (33-37); MCV 94.9 FL (81-99); MONO# 0.49 X1000 (0.11-0.59); MONO% 3.5 % (1.7-9.3); NEUT# 11.77 X1000 (1.4-6.5); NEUT% 84.1 % (42.2-75.2); PLT 235 X1000 (130-400); RBC 3.31 XMIL (4.7-6.1); RDW 13.5 % (11.5-14.5); WBC 13.99 X1000 (4.8-10.8)
[2018-04-18 06:36] LABS: AGAP 10; ALB/GLOB RATIO 0.7; ALBUMIN 2.3 g/dL (3.5-5.0); ALKALINE PHOSPHATASE 153 U/L (32-122); BUN 7 mg/dL (8-22); CALCIUM 8.3 mg/dL (8.8-10.2); CHLORIDE 98 mmol/L (98-107); COSMO 269; CREATININE 0.7 mg/dL (0.7-1.2); ESTIMATED GFR > 60; GLUCOSE 107 mg/dL (70-104); GOT 93 U/L (10-34); GPT 56 U/L (10-44); MAGNESIUM 2.1 mg/dL (1.5-2.7); POTASSIUM 3.8 mmol/L (3.5-5.1); SODIUM 135 mmol/L (136-145); TCO2 27 mmol/L (25-35); TOTAL BILIRUBIN 0.47 mg/dL (0.20-1.00); TOTAL PROTEIN 5.5 g/dL (6.3-8.3)
[2018-04-18 06:55] LABS: INR 1.19; PROTIME 16.1 Seconds (11.0-16.0)
[2018-04-18] MEDS: SPIRIVA INH SCH (07:56)
--- NOTE | 2018-04-18 08:23 | CONSULTATION ---
DATE OF CONSULTATION: 04/17/2018 REASON FOR CONSULTATION: History of urinary retention with indwelling catheter. HISTORY OF PRESENT ILLNESS: Mr. Oro is a 62-year-old with a history of coronary artery disease and severe peripheral artery disease, who was a direct admit by Dr. Higgins on , in preparation for revascularization of his lower extremities. The patient was admitted preoperatively due to being on Coumadin and describes a history of significant peripheral arterial disease requiring prior aortic bifemoral bypass. He developed thrombus within his graft and presented with lower extremity claudication and pain. This was evaluated by Dr. Higgins with plans for revascularization and removal of thrombus. The patient was cleared by Cardiology. In his preop labs, he was found to be hyponatremic with elevated white blood cell count as well as slightly confused. Urology was consulted today regarding his chronic indwelling catheter. The patient appears to have had a catheter placed at [facility] on 04/01/2018 when he was complaining of urinary hesitancy. Looking at the computer, it looks like approximately 1400 mL of urine had drained at that time he was discharge from the ED and he has kept the catheter since then. He says it has not been exchanged over that time. He denies any pain with the catheter. Denies any bladder spasms and feels the catheter is draining well. In talking with him , he is a poor historian regarding whether he was having issues prior to placement of catheter, but it does appear that he was having some symptoms of frequency and sensation of incomplete emptying prior. Urology was consulted for further recommendations regarding his catheter. PAST MEDICAL HISTORY: 1. Severe peripheral artery disease. 2. Coronary artery disease. 3. BPH. 4. Hypertension. 5. Hyperlipidemia. 6. Peripheral neuropathy. 7. Tobacco dependence. 8. Coumadin therapy from unknown etiology, history of PTE or atrial fibrillation. PAST SURGICAL HISTORY: 1. History of heart catheterization 2. Right inguinal hernia repair. 3. Aortobifemoral graft bypass 4. Thrombectomy of bilateral limbs of aortobifemoral graft with patch angioplasty of left common femoral artery. ALLERGIES: No known drug allergies. MEDICATIONS: 1. Hydrocodone/acetaminophen 10/325 mg take 1 tablet every with 4 hours as needed for pain. 2. Duo-Neb 3 mL q.2 hours as needed for wheezing. 3. Elavil 100 mg p.o. daily. 4. Atorvastatin 40 mg p.o. daily. 5. Cefepime 50 mL at 100 mL/hour q.12 hours. 6. Flexeril 10 mg p.o. t.i.d. as needed. 7. Avodart 0.5 mg p.o. daily. 8. Heparin drip. 9. Sorbitol mononitrate 50 mg p.o. daily. 10. Lisinopril 20 mg p.o. daily. 11. Morphine 2 mg IV q.4 hours as needed for pain. 12. Nitroglycerin 0.4 mg sublingual as needed. 13. Omeprazole 40 mg p.o. daily. 14. Lyrica 150 mg p.o. b.i.d. 15. Flomax 0.4 mg p.o. daily. 16. Spiriva 2 puffs daily. 17. Coumadin 4 mg p.o. daily. SOCIAL HISTORY: Smokes a pack and half cigarettes a day. Denies alcohol or illicit drug use. FAMILY HISTORY: Denies family history of prostate cancer or chronic kidney disease. REVIEW OF SYSTEMS: A 12 point review of systems. The patient was a poor historian, but denies chest pain, shortness of breath, nausea, vomiting, history of hematuria, dysuria. Admits to neuropathy, lower extremity weakness and pain, inguinal pain. PHYSICAL EXAM: Vital Signs: Temperature 98.2, heart rate 109, respirations 27 , blood pressure 111/41, oxygen saturation 96%. General: Alert and oriented x2 to person and place, appears to be chronically ill, slightly disheveled in appearance and is resting comfortably in bed. HEENT: Normocephalic, atraumatic. Pupils equal, round, reactive to light. Mucous membranes moist and pink. Pulmonary: Good respiratory effort without audible wheezing overall. Cardiovascular: Regular rate and rhythm. No evidence of lower extremity edema. Abdomen: Soft , nontender, nondistended. No palpable hepatosplenomegaly. : Urethral catheter in place with clear yellow urine. Normal phallus. Normal meatus. It is orthotopic. Bilateral testicles without masses or nodularity. No tenderness to palpation. Rectal: ALDO: 25 gram prostate, smooth. No palpable masses or nodularity. No rectal masses palpated. Extremities: Lower extremities slightly ashen appearance of both extremities, more prominent on the left than the right. There is evidence of mottling on both sides, but they both appear to be warm. Neurologic : Alert and oriented x2 to person and place. Gross motor and sensory intact. LABS: White blood cell count 14.64, hemoglobin 10.2, hematocrit 30.1, platelets 240. Sodium 132, potassium 3.6, chloride 99, bicarb 23, BUN 5, creatinine 0.6, calcium 8, glucose 100. ASSESSMENT AND PLAN: Mr. Oro is a 62-year-old with severe peripheral artery disease status post aortobifemoral, coronary artery disease, benign prostatic hypertrophy, nicotine dependence, hypertension, hyperlipidemia, chronic Coumadin use, peripheral neuropathy who presents for evaluation for indwelling urethral catheter and history of urinary retention.The patient appears to have presented to emergency room several weeks ago with urinary hesitancy and had indwelling catheter inserted at that time and had a high drainage. The patient is a poor historian and difficult to delineate whether he was having issues voiding prior. The patient is already on Avodart and Flomax for his prostate. Due to his current encephalopathy and decompensation from his vascular surgery procedure, would recommend continuing with indwelling catheter at this time. The catheter has been in since the 01 of April. This can remain in place for up to a month prior to needing to be exchanged. I would recommend continued optimization of his bowel management as well as getting him ambulatory to assist in possible voiding trial. I think if patient does well over the next several days he consider a voiding trial while inpatient, remove his catheter and see if he is able to void. If unable to void or has high postvoid residual, would require insertion of catheter in consideration for definitive surgical therapy as he is currently on optimal medical management for benign prostatic hypertrophy. We will continue to monitor. Please call us with questions or concerns. cc: MD Mingo Reyna MD [facility]
[2018-04-18] MEDS: ELAVIL PO SCH (09:07)
[2018-04-18] MEDS: FLOMAX PO SCH (09:08)
[2018-04-18] MEDS: PRINIVIL PO SCH (09:08)
[2018-04-18] MEDS: LIPITOR PO SCH (09:09)
[2018-04-18] MEDS: THERA M PLUS PO SCH (09:09)
[2018-04-18] MEDS: IMDUR PO SCH (09:09)
[2018-04-18] MEDS: PRILOSEC PO SCH (09:09)
[2018-04-18] MEDS ORDERED: MAXIPIME ONE (09:13)
[2018-04-18] MEDS: LYRICA PO SCH ×2 (09:19→22:27)
[2018-04-18] MEDS: NORCO-10 PO PRN ×3 (09:19→18:40)
[2018-04-18] MEDS: AVODART PO SCH (09:20)
[2018-04-18] MEDS: HEPARIN 25,000 UNITS/D5W 25,000 UNIT/250 ML IV.SOLN IV SCH (10:21)
[2018-04-18] MEDS ORDERED: MORPHINE IV ONE (10:52)
[2018-04-18] MEDS: MORPHINE IV PRN ×3 (10:55→23:09)
[2018-04-18] MEDS: FLEXERIL PO PRN ×2 (13:37→18:40)
--- NOTE | 2018-04-18 14:25 | PROGRESS NOTE ---
DATE: 04/18/2018 SUBJECTIVE: The patient continues to complain of inguinal and lower extremity pain. He says that sometimes his pain is well controlled. However, other times he has significant lower extremity discomfort. The patient has not been ambulatory as of yet. He continues to have good urinary output through his Gary catheter. Denies any discomfort or bladder spasm type symptoms. OBJECTIVE: Vital signs: Have been stable. Temperature 98.2, heart rate 88, respirations 17, oxygen saturation 98% on nasal cannula 3 L. General: Alert and oriented x3 resting comfortably in bed. Abdomen: Soft, nontender, nondistended. Extremities: Lower extremity incisions covered with bandages bilaterally. No obvious drainage from the sites. Lower extremities remain slightly mottled appearance with stasis ulcers present on the distal lower extremity. : Urethral catheter in place with clear yellow urine. ALDO: 25 gram, symmetrical prostate without nodules. LABS: White blood cell count 13.9, hemoglobin 10.4, hematocrit 31.4, platelets 235,000. Sodium 135, potassium 3.8, chloride 98, bicarb 27, BUN 7, creatinine 0.7, glucose 107, AST 93, ALT 56, alkaline phosphatase 153. ASSESSMENT/PLAN: Mr. Oro is a 62-year-old with severe peripheral artery disease post aortic bifemoral bypass thrombectomy, coronary artery disease, benign prostatic hyperplasia, hypertension, hyperlipidemia, chronic Coumadin use, peripheral neuropathy, who presents in consultation regarding indwelling urethral catheter and history of urinary retention. The patient has undergone a vascular surgery procedure by Dr. Higgins on 04/16/18 and continues to have minimal ambulation. He states he has not been out of bed since surgery. He does appear to be more awake today and alert and oriented x3. His sodium has improved. His white blood cell count is also downtrended. Overall I think he is improving however due to his minimal ambulatory status, I am concerned that removing the catheter he may go into retention again. I would continue with him on Avodart and Flomax and consideration for removal of catheter while inpatient for voiding trial once he is more ambulatory. If patient continues to have issues with emptying his bladder would have to consider definitive surgical therapy as he is currently on optimal medical management for his benign prostatic hyperplasia. Will continue to follow. Please call with questions or concerns. cc: MD Mingo Reyna MD MTDD
[2018-04-18] MEDS: MAXIPIME 2 GM/NS 2 GM/100 ML IVPB IV SCH (14:53)
--- NOTE | 2018-04-18 15:22 | CARDIOLOGY PROGRESS NOTE ---
DATE: 04/18/2018 CHIEF COMPLAINT: Pain in the incisional area following vascular surgery. He is anxious. SUBJECTIVE: Mr. Oro underwent surgical revascularization. Dr. Seymour on 04/16/2018 performed thrombectomy of both limbs, aortobifemoral graft with patch angioplasty of the left common femoral artery. The patient has not had any chest pains or shortness of breath following the surgery. Currently he is being treated with Warfarin and his usual cardiac medications. In addition, he is getting antibiotics around the clock, vancomycin. He has also been placed on heparin drip. OBJECTIVE: Blood pressure is 117/57, temperature 98.2, pulse 102, respirations 18. He is awake. He is anxious. He is hurting. They gave him a small amount of morphine last night. This morning, they did not give him Spray which he was supposed to get. I just talked to the nurse and asked them to give him 4 mg of morphine just one time. HEENT: Unremarkable. Chest: Diminished breath sounds diffusely. Heart sounds regular and rhythmic. I do not hear a gallop or murmur. Abdomen is soft. Extremities showed that both extremities are warmer than they were preoperatively. Pulses are really diminished. Neurologic: Follows commands, moves all 4 extremities. DIAGNOSTIC DATA: White cell count is 13,990, hemoglobin 10.4, platelet count is 235,000. INR is 1.19. PTT is 68.7 which is therapeutic. Sodium is 135, potassium 3.8, BUN is 7, creatinine 0.7, AST is 93, ALT is 56, alkaline phosphatase 153. IMPRESSION: 1. The patient is on the second postoperative day following bilateral thrombectomy of his aortobifemoral graft. 2. The patient is with history of atherosclerotic heart disease, stable. No postoperative AR. 3. Hyperlipidemia. 4. Tobacco user. 5. Hypertension. RECOMMENDATIONS: At this time, we will work on trying to optimize pain management. We will get a followup EKG in the morning. Cardiac espinoza, I think he is stable. Thank you for the opportunity to participate in his evaluation. cc: MD Mingo Gonzales MD
--- NOTE | 2018-04-18 15:51 | GENERAL SURGERY PROGRESS NOTE ---
DATE: 04/18/2018 SUBJECTIVE: The patient continues to have pain in his legs but otherwise is doing okay. OBJECTIVE: He is afebrile. Vital signs are stable.General: He is awake, alert, no acute distress. Extremities: His feet are warm. There is a small bulla on the left foot. LABORATORY: White cell count 13.9, hemoglobin 10, hematocrit 31, INR 1.2. ASSESSMENT AND PLAN: 62-year-old male status post revascularization and thrombectomy of his aortobifemoral graft. He is starting back on Coumadin. He remains on a heparin drip. When he is adequately anticoagulated on Coumadin then he will be discharged home. cc: MD Mingo Hernandez MD
--- NOTE | 2018-04-18 18:40 | PROGRESS NOTE ---
DATE: 04/18/2018 Overnight no acute events. SUBJECTIVE: He is feeling fine. He is eating his breakfast. He denies any new complaints except the pain that has been bothering him on left lower extremity which happens intermittently periodically. VITAL SIGNS: Temperature afebrile with temperature of 98.7 degrees, pulse tachycardic 105 per minute, blood pressure 120/48 with saturating 97% on 2 to 3 L nasal cannula. OBJECTIVE: Appears in mild distress because of lower extremity pain especially on the left side. Air entry bilateral equal, no wheeze, rhonchi or crackles. S1, S2 normal. No murmur, rub, or gallop. Abdomen is soft. He does not have any tenderness. Lower extremity he has edema and 2 large blisters affecting left lower extremity, right lower extremity he has diminished posterior tibial dorsalis pedis pulses because of edema and excruciating pain I could not palpate pulse on the left lower extremity however is warm to touch bilaterally and he has intact sensation in fact with hyperesthesia of left lower extremity. LABS: Today suggestive of improving leukocytosis to 14,000, normocytic anemia with hemoglobin of 10.4, INR of 1.19, hyponatremia, normal kidney function, persistently elevated liver function test. Hepatitis panel though was negative. ASSESSMENT AND PLAN: 1. Acute toxic metabolic encephalopathy on presentation because of bilateral pneumonia, severe hyponatremia, bilateral lower extremity pain now resolved. CT had chronic microvascular ischemic changes without acute pathology. 2. Bilateral lower lobe pneumonia based on chest CT. Continue intravenous vancomycin and cefepime. I will give him a total of 5 days course of antibiotic and then will stop it. Follow up with repeat chest x-ray tomorrow morning. 3. Persistently abnormal liver function test. Follow up with right upper quadrant ultrasound to rule out any acute liver pathology. Hepatitis panel was negative. This could be related to drug-induced liver injury however, I will follow up with ultrasound results and will decide about it. 4. Severe hyponatremia likely hypovolemic, hyponatremia on presentation now resolved. 5. History of severe peripheral artery disease with aortofemoral graft now status post thrombectomy of both limbs of aortofemoral graft with patch angioplasty of left common femoral artery. Continue intravenous heparin and p.o. warfarin. Stop heparin once INR is more than 2. Continue IV morphine for severe pain. Continue home amitriptyline, cyclobenzaprine and pregabalin . 6. History of chronic obstructive pulmonary disease. Continue albuterol ipratropium nebulization. 7. History of urine retention, benign prostatic hypertrophy and Gary catheter since last 4 weeks. Continue home tamsulosin, dutasteride. Urology on board. 8. History of essential hypertension. Decrease lisinopril dose considering intermittent hypotension. Continue atorvastatin for hyperlipidemia, omeprazole for GERD. 9. Disposition. The patient remains inside the hospital until his INR becomes therapeutic. Plan of care were discussed with the patient and his family at bedside. All of the questions have been answered. cc: Mingo Bolanos MD MTDD
[2018-04-18] MEDS: VANCOMYCIN 2 GM in NS 500 ML IV SCH (19:48)
--- NOTE | 2018-04-18 21:45 | Diag Imaging Result Doc PS360 ---
EXAM: US ABDOMEN-COMPLETE HISTORY: Persistently abnormal LFT. TECHNIQUE: Emergency abdominal ultrasound COMPARISON: None. FINDINGS: Normal pancreatic head and body. Pancreatic tail is obscured. Normal inferior vena cava. No aortic aneurysm. There is atherosclerosis. No focal hepatic abnormality. Normal right kidney. No hydronephrosis. No ascites. The common bile duct measures 6 mm. Normal left kidney. No hydronephrosis. The spleen is enlarged measuring at least 15.4 cm in length. The gallbladder is poorly seen. It may be contracted, filled with stones, or there are simply air-filled loops of bowel in the gallbladder fossa. Recent chest CT reveals no abnormality to the gallbladder. IMPRESSION: 1.Mild splenomegaly 2.Poorly seen gallbladder versus gallbladder filled with stones Electronically signed by Abilio Watson 04/18/2018 9:43 PM
[2018-04-18] MEDS: COUMADIN PO SCH (22:27)
[2018-04-18] MEDS: REQUIP PO SCH (22:27)
[2018-04-19] MEDS: MAXIPIME 2 GM/NS 2 GM/100 ML IVPB IV SCH ×2 (02:38→14:19)
[2018-04-19] MEDS: DUONEB (A & A) INH SCH ×6 (03:00→23:15)
[2018-04-19] MEDS: NORCO-10 PO PRN ×3 (03:30→22:33)
[2018-04-19] MEDS: FLEXERIL PO PRN ×3 (03:30→22:33)
[2018-04-19 06:41] LABS: BASO# 0.02 X1000 (0.0-0.2); BASO% 0.2 % (0.0-0.8); EOS# 0.17 X1000 (0.0-0.7); EOS% 1.4 % (0.0-10.0); HEMATOCRIT 29.4 % (42.0-52.0); HEMOGLOBIN 9.6 g/dL (14.0-18.0); IMM GRAN# 0.05 X1000 (0.0-0.04); IMM GRAN% 0.4 % (0.0-0.5); LYMPH# 1.05 X1000 (1.2-3.4); LYMPH% 8.6 % (20.5-51.1); MCH 30.9 PG (27-31); MCHC 32.7 g/dL (33-37); MCV 94.5 FL (81-99); MONO# 0.54 X1000 (0.11-0.59); MONO% 4.4 % (1.7-9.3); MPV 9.4 FL (7.4-10.4); PLT 244 X1000 (130-400); RBC 3.11 XMIL (4.7-6.1); RDW 13.5 % (11.5-14.5); WBC 12.23 X1000 (4.8-10.8)
[2018-04-19 06:51] LABS: INR 1.22; PROTIME 16.4 Seconds (11.0-16.0)
[2018-04-19] MEDS: FLOMAX PO SCH (08:12)
[2018-04-19] MEDS: SPIRIVA INH SCH (08:12)
[2018-04-19] MEDS: PRILOSEC PO SCH (08:12)
[2018-04-19] MEDS: LIPITOR PO SCH (08:12)
[2018-04-19] MEDS: LYRICA PO SCH ×2 (08:12→22:32)
[2018-04-19] MEDS: PRINIVIL PO SCH (08:12)
[2018-04-19] MEDS: AVODART PO SCH (08:13)
[2018-04-19] MEDS: THERA M PLUS PO SCH (08:13)
[2018-04-19] MEDS: IMDUR PO SCH (08:13)
[2018-04-19] MEDS: ELAVIL PO SCH (08:13)
[2018-04-19] MEDS: MORPHINE IV PRN ×3 (08:14→17:42)
--- NOTE | 2018-04-19 08:34 | Diag Imaging Result Doc PS360 ---
EXAM: CHEST-PORTABLE - 04/19/2018 HISTORY: Follow up pneumonia TECHNIQUE: Portable chest COMPARISON: 04/15/2018 FINDINGS: Heart size is normal. There is been overall decrease in basilar infiltrate/atelectasis. There is mild residual infiltrate/atelectasis at the left base. There is no pleural effusion or pneumothorax identified. IMPRESSION: Overall decrease in basilar infiltrates/atelectasis. There is mild residual infiltrate/atelectasis at the left base. Electronically signed by Jose Steve 04/19/2018 8:31 AM
--- NOTE | 2018-04-19 08:56 | CARDIOLOGY PROGRESS NOTE ---
DATE: 04/19/2018 CHIEF COMPLAINT: Leg pain. SUBJECTIVE: Mr. Oro is in much better spirits this morning. The pain is much less than what it was yesterday. He is eating his breakfast. Denies having any chest pain or dyspnea. OBJECTIVE: Blood pressure is 130/62, temperature 97.5, pulse 96, respirations 24. He is awake and alert, in no distress. HEENT is normal. Chest: Diminished breath sounds at bases without rales. Heart sounds are regular and rhythmic. I do not hear gallop or murmur. Abdomen is nontender. Extremities showed decreased pulses in both feet, although they are relatively warmer than what they were a few days ago. Neurologic: He is fully coherent, awake, alert, and oriented x3. Moves all 4 extremities. Follows commands. Cranial nerves normal. Speech is clear. DIAGNOSTIC DATA: White cell count this morning is 12,230, hemoglobin is 9.6, hematocrit 29.4. Of note, prealbumin level is very low at 5.2 mg/dL. His sodium is 135, potassium 3.8, BUN is 7, creatinine 0.7. IMPRESSION: 1. The patient is on the third postoperative day following thrombectomy of an aortobifemoral graft with improved circulation to both legs. 2. History of coronary heart disease, stable. 3. Tobacco user. 4. Hyperlipidemia. 5. Hypertension. RECOMMENDATIONS: At this point in time, we will continue present postoperative care. The patient seems to be stable from the cardiac viewpoint. His EKG done today is normal. There is no evidence of any cardiac decompensation following his vascular surgery. We will follow him along. cc: MD Mingo Gonzales MD
[2018-04-19] MEDS ORDERED: HEPARIN 25,000 UNITS/D5W 25,000 UNIT/250 ML IV.SOLN IV SCH ×2 (10:45→18:15)
--- NOTE | 2018-04-19 13:47 | GENERAL SURGERY PROGRESS NOTE ---
DATE: 04/19/2018 SUBJECTIVE: The patient overall is doing about the same. No new complaints or events. OBJECTIVE: Vitals: He is afebrile. Vital signs are stable. General: He is awake, alert, oriented x4. No acute distress. Extremities: Both show chronic ischemic vascular disease with some bullae on the left foot. They do not appear to be acutely infected though. LABORATORY: White blood cell count 12. INR 1.2. ASSESSMENT/PLAN: A 62-year-old male status post thrombectomy of the aortobifemoral graft. He is stable. We are advancing his Coumadin and when the INR is normal, Dr. Higgins plans discharge. cc: MD Mingo Hernandez MD MTDD
[2018-04-19] MEDS: VANCOMYCIN 2 GM in NS 500 ML IV SCH (13:48)
[2018-04-19] MEDS ORDERED: HEPARIN IV ONE (18:15)
--- NOTE | 2018-04-19 19:26 | PROGRESS NOTE ---
DATE: 04/19/2018 Overnight no acute events. SUBJECTIVE: He is in excruciating pain in left lower extremity and he has tremors and is talking in bed because of that. He denies any other complaint. OBJECTIVE: Vital signs: Temperature 97.8 degrees, pulse of 98 per minute, blood pressure 124/70, saturating 97% on 2 L nasal cannula. General: Appears in severe distress because of left lower extremity pain. Air entry bilateral equal no wheeze, rhonchi, crackles, S1, S2 normal. No murmur, gallop. Abdomen soft, nontender. Lower extremity examination he has large blisters affecting left foot, lower extremity appears edematous and erythematous. He also has ischemic ulcer over lower part of left barfield. He has decreased sensation in left foot and leg as compared to right. LABS: Suggestive of decreasing leukocytosis, normocytic anemia, normal platelet count, INR of 1.22. No new BMP today. Pre-albumin of 5.2. ASSESSMENT AND PLAN: 1. Bilateral lower lobe pneumonia based on chest CT. Continue intravenous vancomycin and cefepime. Followup x-ray today morning shows improvement, complete total of 7 days course of antibiotic, day 1 of antibiotic was April 15, I will complete about 5 to 7 days course of antibiotic. 2. Acute toxic metabolic encephalopathy on presentation because of bilateral pneumonia, severe hyponatremia, bilateral lower extremity pain now resolved. CT had chronic microvascular ischemic changes, persistently abnormal liver function tests, right upper quadrant ultrasound does not detect any acute pathology, gallbladder did not have obvious gallstones though it was contracted. He does not have right upper quadrant pain or tenderness at the moment. Follow up with liver function test tomorrow. This could be related to intrahepatic cholestasis in setting of his acute illness or medication induced . 3. Severe hyponatremia hypovolemic now resolved. History of severe peripheral artery disease with aortofemoral graft now status post thrombectomy of both limbs of aortofemoral graft with patch angioplasty of left common femoral artery . Patient is on intravenous heparin and p.o. warfarin for bridging, surgery on board, continue IV morphine p.r.n. for leg pain, continue amitriptyline, cyclobenzaprine, pregabalin, will appreciate surgical recommendation about persistent left lower extremity pain and now worsening edema. 4. History of chronic obstructive pulmonary disease, continue albuterol ipratropium nebulization. 5. History of urine retention, benign prostatic hypertrophy and Gary catheter is in 4 weeks. Continue home tamsulosin, dutasteride, urology on board might need definitive surgery in future according to Urology. Continue lisinopril at a lower dose for essential hypertension, continue atorvastatin for hyperlipidemia and omeprazole for GERD. 6. Disposition. Patient remains inside the hospital for achieving therapeutic INR . cc: Mingo Bolanos MD MTDPeggy
[2018-04-19] MEDS: REQUIP PO SCH (22:32)
[2018-04-19] MEDS: COUMADIN PO SCH (22:33)
[2018-04-20] MEDS: DUONEB (A & A) INH SCH ×6 (03:15→23:20)
[2018-04-20] MEDS: MAXIPIME 2 GM/NS 2 GM/100 ML IVPB IV SCH ×2 (03:29→15:21)
[2018-04-20] MEDS: NORCO-10 PO PRN ×4 (03:29→22:33)
[2018-04-20 06:15] LABS: INR 1.31; PROTIME 17.3 Seconds (11.0-16.0)
[2018-04-20 06:26] LABS: AGAP 8; ALB/GLOB RATIO 0.6; ALKALINE PHOSPHATASE 322 U/L (32-122); BUN 9 mg/dL (8-22); CALCIUM 8.5 mg/dL (8.8-10.2); CHLORIDE 101 mmol/L (98-107); COSMO 272; CREATININE 0.6 mg/dL (0.7-1.2); ESTIMATED GFR > 60; GLUCOSE 98 mg/dL (70-104); GOT 82 U/L (10-34); GPT 70 U/L (10-44); POTASSIUM 4.2 mmol/L (3.5-5.1); SODIUM 137 mmol/L (136-145); TCO2 28 mmol/L (25-35); TOTAL BILIRUBIN 0.36 mg/dL (0.20-1.00); TOTAL PROTEIN 5.5 g/dL (6.3-8.3)
--- NOTE | 2018-04-20 07:19 | EKG Report ---
Test Performed on : 04/19/2018 06:46:45 AM Test Reason : ASHD/ Blood Pressure : / mmHG Vent. Rate : 097 BPM Atrial Rate : 097 BPM P-R Int : 152 ms QRS Dur : 098 ms QT Int : 350 ms P-R-T Axes : 054 054 042 degrees QTc Int : 444 ms Normal sinus rhythm. Normal ECG When compared with ECG of 14-APR-2018 15:58, No significant change was found Confirmed by Lazara FLORES, Garcia Nicole ([id number]) on 04/20/2018 9:13:56 AM
[2018-04-20] MEDS: PRILOSEC PO SCH (08:22)
[2018-04-20] MEDS: ELAVIL PO SCH (08:22)
[2018-04-20] MEDS: IMDUR PO SCH (08:22)
[2018-04-20] MEDS: PRINIVIL PO SCH (08:23)
[2018-04-20] MEDS: VANCOMYCIN 2 GM in NS 500 ML IV SCH (08:23)
[2018-04-20] MEDS: LYRICA PO SCH ×2 (08:23→20:16)
[2018-04-20] MEDS: THERA M PLUS PO SCH (08:23)
[2018-04-20] MEDS: AVODART PO SCH (08:23)
[2018-04-20] MEDS: LIPITOR PO SCH (08:23)
[2018-04-20] MEDS: FLOMAX PO SCH (08:23)
[2018-04-20] MEDS: SPIRIVA INH SCH (08:30)
--- NOTE | 2018-04-20 08:36 | PROGRESS NOTE ---
DATE: 04/20/2018 SUBJECTIVE: The patient overall seems to be improving. He is complaining of some inguinal pain, which seems to be stable. He denies any bladder discomfort. His catheter has been draining well with clear yellow urine. He has been minimally, if at all ambulatory, has gotten up for a bowel movement on 2 separate occasions over the past 48 hours. OBJECTIVE: Vital signs: Temperature 98.1 degrees, heart rate 93, blood pressure 117/46. Oxygen saturation 99% on nasal cannula. General: No acute distress, resting comfortably in bed. Respiratory: Good respiratory effort. No audible wheezing or rales. The patient is wearing nasal cannula with no evidence of increased work of breathing. Abdomen: Soft , nontender, and nondistended. : Urethral catheter in place with clear yellow urine. Normal phallus. Normal bilateral testicles. Musculoskeletal: Evidence of bilateral lower extremity dressings with some tenderness to palpation of each one of these. No obvious drainage on his dressings. LABS: White blood cell count 12.23, hemoglobin 9.6, hematocrit 29.4, platelets 244,000. Sodium 137, potassium 4.2, chloride 101, bicarb 28, creatinine 0.6, BUN 9, glucose 98. ASSESSMENT AND PLAN: Mr. Oro is a 62-year-old with a history of severe peripheral artery disease, status post aortobifemoral bypass with thrombectomy, coronary artery disease, benign prostatic hypertrophy, hypertension, hyperlipidemia, chronic Coumadin use , peripheral neuropathy, who presents in consultation regarding indwelling urethral catheter and history of urinary retention. The patient underwent vascular surgery procedure by Dr. Higgins on 04/16/2018. He continues to have minimal ambulation. He has had several bowel movements and overall seems to be improving. His ureteral catheter is in place draining clear yellow urine. The patient had been on Avodart and Flomax in the past. I offered the opportunity to remove his catheter today for a voiding trial. However, patient continues to be concerned about going into retention again. Encouraged him to get out of bed today. The patient has had several bowel movements and likely should undergo voiding trial while inpatient. If the patient is unable to void, will need to have the catheter reinserted and consideration for surgical intervention on his prostate. The prostate on exam is not that large. Uncertain why the patient has significant issues voiding. It could be bladder related due to his peripheral vascular disease. We will continue to monitor. Please call with questions or concerns. cc: MD Mingo Reyna MD MTDD
[2018-04-20] MEDS ORDERED: HEPARIN IV ONE (10:07)
[2018-04-20] MEDS ORDERED: HEPARIN 25,000 UNITS/D5W 25,000 UNIT/250 ML IV.SOLN IV SCH ×2 (10:15→21:30)
[2018-04-20] MEDS ORDERED: CALMOSEPTINE OINTMENT TOP PRN (11:47)
--- NOTE | 2018-04-20 13:04 | GENERAL SURGERY PROGRESS NOTE ---
DATE: 04/20/2018 TIME: 12:40 in the afternoon. SUBJECTIVE: Mr. Oro is doing better. OBJECTIVE: He is afebrile. Heart rate is currently 113, blood pressure 130/49. LABORATORY: He now has a pro time that is 17.3 with an INR of 1.3 on Coumadin. His white count is down to 12,200, hemoglobin 9.6, hematocrit 29. Chemistry is fine. His sodium is up to 137. He still has some mildly elevated LFTs but this is not a new problem. PLAN: The plan was to stop his heparin and I will discuss discharge with his medical doctors by tomorrow; hopefully on p.o. antibiotics. cc: MD Mingo Pace MD
--- NOTE | 2018-04-20 19:03 | PROGRESS NOTE ---
DATE: 04/20/2018 SUBJECTIVE: He is feeling fine, denies new complaints. He does have intermittent pain in the left lower extremity, which is taken care of by morphine intravenously. He was able to come out of bed and sit on the commode today. OBJECTIVE: Vital signs: Temperature 99.7 degrees, pulse 99 per minute, blood pressure 150/60, saturating 99% on 3 L nasal cannula. General: He does not appear in acute distress. Lungs: Air entry bilaterally equal. No wheeze or rhonchi. He has occasional corrected crackles in the bilateral infrascapular region. Heart: S1 and S2 normal. Tachycardic. No murmur, rub, or gallop. Abdomen: Soft and nontender. Lower extremity examination: Blister affecting the left foot and the left lower extremity appears erythematous. He also has an ischemic ulcer over lower part of the left barfield. There is a decreased sensation in the left foot and leg as compared to the right. In fact, on my examination, he could not feel gross touch on the left foot or leg, which has been the case since post surgery though and is stable. LABORATORY DATA: No CBC today. INR of 1.3. Electrolytes within acceptable range. He continues to have elevation in alkaline phosphatase. ASSESSMENT AND PLAN: 1. Bilateral lower lobe pneumonia. He is status post 6 days of antibiotics now. Tomorrow will be day 7 of antibiotics. My plan is to stop his antibiotics at the time of discharge tomorrow. Chest x-ray performed yesterday had suggested decrease in basilar infiltrate and atelectasis. 2. Acute toxic metabolic encephalopathy on presentation because of bilateral pneumonia, severe hyponatremia, and bilateral lower extremity pain, now resolved. CT scan of head with chronic microvascular ischemic changes. 3. Persistent abnormal liver function tests. Right upper quadrant ultrasound does not detect acute pathology, including absence of gallstones. He denies any right upper quadrant pain and there is no tenderness on exam. He should get repeat liver function tests done 1 week after discharge. This is likely related to intrahepatic cholestasis and transaminitis because of some medication use. 4. Severe hyponatremia with hypovolemia on presentation, now resolved. Severe peripheral artery disease with aortofemoral graft, now status post thrombectomy of both limbs of the aortofemoral graft with patch angioplasty of the left common femoral artery. Continue intravenous heparin and warfarin. Surgery team is planning to discharge him on warfarin tomorrow. 4. History of chronic obstructive pulmonary disease, currently stable. Continue albuterol/ipratropium. 5. History of urine retention and benign prostatic hypertrophy, and indwelling Gary catheter since more than 4 weeks now. Continue tamsulosin and dutasteride. Dr. Coon from Urology on board. 6. Others. Continue lisinopril for essential hypertension, at lower dose. Continue atorvastatin for hyperlipidemia and omeprazole for gastroesophageal reflux disease. DISPOSITION: The patient will complete his antibiotic course tomorrow. He should get repeat liver function test 1 week after discharge. He should be okay from the medical perspective to be discharged tomorrow. Plan of care was discussed with the primary team and the patient. All of their questions have been answered. cc: Mingo Bolanos MD MTDD
[2018-04-20] MEDS: COUMADIN PO SCH (20:16)
[2018-04-20] MEDS: REQUIP PO SCH (20:16)
[2018-04-20] MEDS: FLEXERIL PO PRN (22:33)
[2018-04-21] MEDS: MAXIPIME 2 GM/NS 2 GM/100 ML IVPB IV SCH ×2 (02:32→14:51)
[2018-04-21] MEDS: NORCO-10 PO PRN ×3 (02:40→20:58)
[2018-04-21] MEDS: DUONEB (A & A) INH SCH ×6 (03:10→23:10)
[2018-04-21] MEDS: VANCOMYCIN 2 GM in NS 500 ML IV SCH ×2 (03:28→20:48)
[2018-04-21] MEDS: HEPARIN 25,000 UNITS/D5W 25,000 UNIT/250 ML IV.SOLN IV SCH ×2 (04:06→09:05)
[2018-04-21] MEDS: FLEXERIL PO PRN (06:54)
[2018-04-21 07:26] LABS: INR 1.48; PROTIME 19.1 Seconds (11.0-16.0)
[2018-04-21] MEDS: SPIRIVA INH SCH (08:00)
[2018-04-21] MEDS: IMDUR PO SCH (09:08)
[2018-04-21] MEDS: LYRICA PO SCH ×2 (09:08→20:58)
[2018-04-21] MEDS: THERA M PLUS PO SCH (09:09)
[2018-04-21] MEDS: AVODART PO SCH (09:09)
[2018-04-21] MEDS: FLOMAX PO SCH (09:09)
[2018-04-21] MEDS: LIPITOR PO SCH (09:09)
[2018-04-21] MEDS: PRILOSEC PO SCH (09:10)
[2018-04-21] MEDS: PRINIVIL PO SCH (09:10)
[2018-04-21] MEDS: ELAVIL PO SCH (09:11)
[2018-04-21] MEDS ORDERED: HEPARIN IV ONE (10:07)
--- NOTE | 2018-04-21 13:30 | GENERAL SURGERY PROGRESS NOTE ---
DATE: 04/21/2018 Joao was afebrile this morning, heart rate 86, blood pressure 137/68. Respiratory rate is 18. He does have flow through his graft in both limbs. Both legs are warmer than they were. His left foot especially is warmer than it was, and even so more than the right. His pain is from the mid tarsal region distally in both feet. He has some blisters on his left foot that we evacuated today and we will use some calcium alginate to apply to these wounds to absorb the drainage. His pro time today is 19.1, INR 1.5. His Gary catheter was removed. The plan will be to discharge him today. Home health will see him and use the alginate dressings on his foot. The decision about a Gary catheter will be made today. He will return to see me in the office in 2 weeks. Any home antibiotics will be determined by the medical doctors. cc: MD Mingo Pace MD
[2018-04-21] MEDS: REQUIP PO SCH (20:48)
[2018-04-21] MEDS: COUMADIN PO SCH (20:48)
[2018-04-21] MEDS ORDERED: NS 500 ML ONE (21:19)
[2018-04-22] MEDS: MAXIPIME 2 GM/NS 2 GM/100 ML IVPB IV SCH ×2 (03:12→17:59)
[2018-04-22] MEDS: DUONEB (A & A) INH SCH ×4 (03:25→15:24)
[2018-04-22] MEDS: MORPHINE IV PRN (03:34)
--- NOTE | 2018-04-22 04:27 | PROGRESS NOTE ---
DATE: 04/21/2018 OVERNIGHT: No acute events. His Gary catheter has been removed and he was able to be by himself. SUBJECTIVE: He is feeling fine. Denies chest pain or feeling short of breath. His pain is minimal in the left lower extremity and better than yesterday. OBJECTIVE: Vital Signs: Temperature is 98.5 degrees, pulse 107 per minute, blood pressure 117/46, oxygen saturation 95% on room air. General: Does not appear in acute distress. Lungs: Air entry bilaterally equal. No wheeze or rhonchi. Mild crackles at bilateral infrascapular region. Cardiovascular: S1, S2 normal. No murmur, rub, or gallop. Abdomen: Soft, nontender. Extremities: Left lower extremity examination suggests he has edema affecting the left foot and left leg as compared to the right. There is erythema bilaterally. There are also some ischemic ulcers and bulla formation, which is dressed. LABORATORY DATA: No new labs today. ASSESSMENT AND PLAN: 1. Bilateral lower lobe pneumonia. He is status post 7 days of intravenous cefepime and vancomycin. Antibiotics will be stopped at the time of discharge today. 2. Acute toxic metabolic encephalopathy on presentation because of severe hyponatremia, bilateral pneumonia and bilateral lower extremity pain, now resolved. Persistent abnormal liver function test. I advised him to get a repeat liver function test one week after discharge to make sure his liver function is trending down. This could be related to his acute illness and medication use. 3. Severe hyponatremia, hypovolemic, now resolved. 4. Severe peripheral artery disease with aortofemoral graft, now status post thrombectomy of both limbs of the aorta with patch angioplasty of left common carotid artery. Surgery to discharge him on warfarin. 5. History of chronic obstructive pulmonary disease, currently stable. Continue albuterol/ipratropium. 6. History of urinary retention. His Gary catheter has been removed and he is getting voiding trial. He should continue tamsulosin and dutasteride and follow up with Urology as an outpatient. 7. He should continue his lisinopril for hypertension, omeprazole for gastroesophageal reflux disease, and atorvastatin for hyperlipidemia. Thank you for allowing us to take part in this patient's care. Plan of care was discussed with the patient and all of his questions have been answered. cc: Mingo Bolanos MD
[2018-04-22] MEDS: HEPARIN 25,000 UNITS/D5W 25,000 UNIT/250 ML IV.SOLN IV SCH (06:58)
[2018-04-22 07:24] LABS: INR 1.6; PROTIME 20.2 Seconds (11.0-16.0)
[2018-04-22 07:26] LABS: PTT 81.5 Seconds (22.3-41.8)
[2018-04-22] MEDS: SPIRIVA INH SCH (07:47)
[2018-04-22] MEDS: PRINIVIL PO SCH (09:10)
[2018-04-22] MEDS: LYRICA PO SCH (09:10)
[2018-04-22] MEDS: LIPITOR PO SCH (09:10)
[2018-04-22] MEDS: FLOMAX PO SCH (09:10)
[2018-04-22] MEDS: PRILOSEC PO SCH (09:10)
[2018-04-22] MEDS: THERA M PLUS PO SCH (09:11)
[2018-04-22] MEDS: AVODART PO SCH (09:11)
[2018-04-22] MEDS: ELAVIL PO SCH (09:11)
[2018-04-22] MEDS: IMDUR PO SCH (09:11)
[2018-04-22] MEDS: NORCO-10 PO PRN (09:37)
--- NOTE | 2018-04-22 15:39 | GENERAL SURGERY PROGRESS NOTE ---
DATE: 04/22/2018 Date is 04/22/2018 at 9:00 in the morning. He is afebrile. Heart rate is 100, blood pressure 132/67, respiratory rate is 20. His pro time is 20, INR 1.6. He has been voiding anywhere from 200 to 400 mL at a time it appears. There is still some residual in his bladder and he is to follow up with Dr. Coon about this. We will discharge him today. We discussed his wound care. He will be followed by home health and have his Ioana changed every other day. They will use saline to wash the wounds and then apply the Ioana every other day. He can get up and walk as he can tolerate it, but we will arrange for him to get a wheelchair for long distances. He will return to see me in the office in 2 weeks. He will resume his usual Coumadin dose as he was taking it before admission. cc: MD Mingo Pace MD
[2018-04-22 15:48] VITALS: BP 143/59
[2018-04-22] MEDS: VANCOMYCIN 2 GM in NS 500 ML IV SCH (17:58)
--- NOTE | 2018-05-11 00:22 | DISCHARGE SUMMARY ---
ADMISSION DATE: 04/14/2018 DISCHARGE DATE: 04/22/2018 PRIMARY DISCHARGE DIAGNOSES: 1. Thrombosis of aortobifemoral bypass. 2. Severe peripheral vascular disease with ischemic rest pain. 3. History of ischemic heart disease. 4. Toxic metabolic encephalopathy. 5. Hyponatremia. 6. Lower lobe pneumonia. 7. Urinary retention. PRIMARY PROCEDURE: Thrombectomy with aortobifemoral bypass graft. CONSULTATIONS: Hospitalist, Cardiology, Urology HISTORY: This 62-year-old gentleman with known thrombosis of his right limb of his graft. He was admitted prior to the procedure in order to get an echocardiogram which was done in the hospital. He was recognized to have thrombosis not only to his right limb but his left limb as well. He had ischemic rest pain to both extremities, worse on the left which was out of character for him. He developed some blistering also of his foot. We felt this was causing his elevated CPK level. He had been taken off Coumadin. He had an indwelling Gary catheter upon admission due to urinary retention. After he was prepared for surgery, he was taken to the operating room where he underwent a thrombectomy of both limbs of his graft. Postoperatively, he was maintained on IV heparin and then ultimately switched to Coumadin. His lower lobe pneumonia resolved in the hospital with antibiotic therapy as directed by the hospitalist. He did not show any signs of cardiac ischemia during his hospitalization and was discharged home on his usual medicines and warfarin. His urinary catheter was removed by Dr. Coon just prior to his discharge. He did urinate. He will follow up with Dr. Coon with any issues. His hyponatremia corrected. His encephalopathy resolved. By the time of his discharge, he was mentally alert and normal. He will be discharged home and to return to the office in followup especially regarding his wounds on his left leg. He is to clean wounds with vashe and use Ioana until we can follow up in the office. cc: MD Mingo Pace MD MTDD
== END 2018-04-22 18:24 | disposition home health service (06) | DRG 252 ==
LOC: 3N 14:13 → 4N 19:16
PROVIDERS: ADMIT Internal Medicine; ATTEND Surgery
CPT/HCPCS: 70450; 71010; 71045; 71250; 76700; 80048; 80053; 80061; 80074; 80076; 80202; 80307; 80320; 81001; 82055; 82140; 82550; 82553; 82805; 83036; 83721; 83735; 83930; 83935; 84134; 84295; 84300; 84443; 85014; 85018; 85025; 85027; 85610; 85730; 86850; 86900; 86901; 86920; 87040; 88300; 88304; 93005; 93010; 93306; 94640; 94761; 94799; A9270; C1763; G0480; G6040; J0690; J0692; J1170; J1644; J2270; J2370; J3370; J3411; J3475; J7030; J7040; J7050; Q9967

== ENCOUNTER 2018-04-25 21:40 | Inpatient (IN) ==
[2018-04-25 23:41] LABS: BASO# 0.03 X1000 (0.0-0.2); BASO% 0.3 % (0.0-0.8); EOS# 0.05 X1000 (0.0-0.7); EOS% 0.4 % (0.0-10.0); HEMATOCRIT 31.6 % (42.0-52.0); HEMOGLOBIN 10.1 g/dL (14.0-18.0); IMM GRAN# 0.12 X1000 (0.0-0.04); IMM GRAN% 1.1 % (0.0-0.5); LYMPH# 1.14 X1000 (1.2-3.4); LYMPH% 10.1 % (20.5-51.1); MCH 31.2 PG (27-31); MCV 97.5 FL (81-99); MONO# 0.35 X1000 (0.11-0.59); MONO% 3.1 % (1.7-9.3); MPV 9.7 FL (7.4-10.4); NEUT# 9.58 X1000 (1.4-6.5); PLT 343 X1000 (130-400); RBC 3.24 XMIL (4.7-6.1); RDW 14.7 % (11.5-14.5); WBC 11.27 X1000 (4.8-10.8)
[2018-04-25 23:58] LABS: ALBUMIN 2.6 g/dL (3.5-5.0); CALCIUM 8.7 mg/dL (8.8-10.2); CREATININE 1.3 mg/dL (0.7-1.2); POTASSIUM 4.6 mmol/L (3.5-5.1); TOTAL BILIRUBIN 0.2 mg/dL (0.20-1.00); TOTAL PROTEIN 6.1 g/dL (6.3-8.3)
--- NOTE | 2018-04-26 00:29 | PROVIDER DOCUMENTATION ---
This chart was entered by Yared Block Scribe, acting as scribe for Ananda Nixon MD. HPI-General Adult - General Chief Complaint: Syncope Stated Complaint: GENERAL ADULT Time Seen by Provider: 04/25/18 22:43 Source: family, EMS Allergies/Adverse Reactions: Patient Allergies Allergy/AdvReac Type Severity Reaction Status Date / Time No Known Allergies Allergy Verified 04/25/18 22:04 Home Medications: Home Medication List Medication Instructions Recorded Confirmed Last Taken Type Omeprazole [Prilosec] 40 mg PO DAILY 05/21/14 04/14/18 03/13/15 09:00 History Dutasteride [Avodart] 0.5 mg PO DAILY #0 capsule 11/14/14 04/14/18 03/13/15 09: 00 Rx Ropinirole [Requip] 0.5 mg PO QHS #0 tablet 11/14/14 04/14/18 03/13/15 09:00 Rx Tamsulosin [Flomax] 0.4 mg PO DAILY #0 capsule 11/14/14 04/14/18 03/13/15 09:00 Rx Amitriptyline [Elavil] 100 mg PO DAILY 03/10/15 04/14/18 03/13/15 21:00 History Cyclobenzaprine [Flexeril] 10 mg PO DAILY 03/10/15 04/14/18 03/13/15 20:00 History LISINOpril [Prinivil] 10 mg PO DAILY 03/10/15 04/14/18 02/28/15 09:00 History Hydrocodone/APAP 5 mg/325 mg 1 - 2 tab PO Q6H PRN PRN #18 tab 04/01/18 04/14/18 Unknown Rx [Lowpoint-5] Amlodipine Besylate [Norvasc] 5 mg PO DAILY 04/14/18 04/14/18 Unknown History Atorvastatin Calcium [Lipitor] 40 mg PO DAILY 04/14/18 04/14/18 Unknown History Pregabalin [Lyrica] 200 mg PO BID 04/14/18 04/14/18 Unknown History Umeclidinium [place] [Incruse 62.5 mcg IH DAILY 04/14/18 04/14/18 Unknown History Ellipta] Hydrocodone/APAP 10 mg/325 mg 1 ea PO Q4H PRN PRN #20 tab 04/21/18 Unknown Rx [Lowpoint-10] Warfarin [Coumadin] 4 mg PO QHS #100 tab 04/21/18 Unknown Rx - History of Present Illness -Gen Adult Nature of Presenting Problems: 62 y/o M presents to the ED via EMS due to syncopal episode. EMS reports that patient passed out while sitting on his couch tonight. EMS states patient is post surgery for blood clots in his left leg. Family states patient has taken a Flexeril and Amitriptyline tonight. Patient has had decreased responsiveness since episode. Denies all other symptoms. Onset/Duration: reports: 1-3 hours ago Timing: reports: still present Modifying Factors: improves with: nothing Associated Symptoms: reports: denies symptoms Similar Symptoms Previously?: No Recently seen or treated by another doctor?: Yes Review of Systems - Adult - REVIEW OF SYSTEMS - ADULT ROS:: ROS per family Constitutional: denies: chills, fever Eyes: reports: no symptoms reported Ears, Nose, Mouth & Throat: reports: no symptoms reported Cardiovascular: denies: chest pain, palpitations Respiratory: denies: shortness of breath, wheezing Gastrointestinal: denies: diarrhea, nausea, vomiting Genitourinary: reports: no symptoms reported Musculoskeletal: reports: no symptoms reported Integumentary: reports: no symptoms reported Neurological: reports: syncope. denies: dizziness/vertigo, headache/migraines, loss of balance Psychiatric: reports: no symptoms reported Endocrine: reports: no symptoms reported Hematologic/Lymphatic: reports: no symptoms reported Allergic/Immunologic: reports: no symptoms reported All Other Systems: Reviewed and Negative Past History - Adult - PAST MEDICAL HISTORY-ADULT Review of Records: reports: Nursing Assessment Review, Medications Reviewed Major Childhood Illnesses: reports: denies history Cardiovascular: reports: HTN, hyperlipidemia Respiratory: reports: COPD Gastrointestinal: reports: denies history Obstetrical/Gynecological: reports: denies history Genitourinary: reports: denies history Musculoskeletal: reports: denies history Neurological: reports: denies history Endocrine/Immune: reports: denies history Other Conditions: reports: denies history - PRIOR SURGERIES/PROCEDURES Surgical/Procedure History: reports: none Physical Exam-General - CONSTITUTIONAL General Appearance: slow to respond - EYES Eyes: PERRL/EOMI, pink conjunctivae - HEAD, EARS, NOSE, MOUTH & THROAT HENMT: normocephalic/atraumatic, moist mucous membranes, normal ENT inspection - NECK Neck: non-tender, full range of motion, supple, normal inspection - RESPIRATORY Respiratory: chest non-tender, lungs clear, normal breath sounds - CARDIOVASCULAR Cardiovascular: regular rate, rhythm, no edema - GASTROINTESTINAL (ABDOMEN) Abdominal Exam: non tender, soft, no organomegaly, no pulsatile mass - LYMPHATIC Lymphatic: no adenopathy - MUSCULOSKELETAL Back Exam: normal inspection, no CVA tenderness, no vertebral tenderness - NEUROLOGIC Neurologic: registered medical transcriptionist II-XII nml as tested, grossly normal, no motor/sensory deficits - PSYCHIATRIC Psych/Mental Status: other (no awake) Progress - PLAN OF CARE/RESULTS Progress/Plan/Lab Results: Vital Signs - 8 hr 04/25/18 21:44 Temperature 97.4 F L Pulse Rate 89 Respiratory Rate 18 Blood Pressure 105/49 O2 Sat by Pulse Oximetry 100 Result Diagrams: 04/25/18 23:10 04/25/18 23:10 - CONSULTS/PCP/HOSPITALIST Notification #1 *Consult/PCP/Hospitalist*: Dr Larry Time Discussed: 00:19 Consult Disposition: Admit (unable to cope at home and currently over medicated) Departure - Departure Date of Disposition Decision: 04/26/18 Time of Disposition Decision: 00:19 DIAGNOSIS: Ischemic necrosis of toe Syncope Qualifiers: Syncope type: unspecified Qualified Code(s): R55 - Syncope and collapse Disposition: ADMITTED INPATIENT 09 Certified Medical Emergency: Emergent Condition: Stable - Critical Care Note This patient required my direct & personal management of CC.: No Attestation - Physician/ GARCIA Attestation Patient care was provided by Advanced Practice Provider:: No The physician spent face to face time with patient:: Yes Advanced Practice Provider documentation review:: Supervising physician onsite and consulted in the evaluation and care of this patient. The physician did have a face to face encounter with the patient. This chart was documented by the indicated scribe, (Yared Block Scribe) and accurately reflects the services I performed and decisions made by me, Ananda Nixon MD, as attested by the provider's signature.
[2018-04-26 00:32] LABS: BILIRUBIN URINE NEGATIVE (NEGATIVE); BLOOD URINE NEGATIVE (NEGATIVE); CLARITY CLEAR (CLEAR); COLOR YELLOW; GLUCOSE URINE NEGATIVE (NEGATIVE); KETONE URINE NEGATIVE (NEGATIVE); LEUKOCYTES URINE NEGATIVE (NEGATIVE); NITRITE URINE NEGATIVE (NEGATIVE); PH URINE 6.5; PROTEIN URINE NEGATIVE (NEGATIVE); SP GRAVITY URINE 1.005; UROBILINOGEN URINE NORMAL
[2018-04-26 00:41] LABS: URINE BACTERIA 3+ /HFP; URINE EPITHELIAL CELLS <10 /HPF (<10); URINE RBC <10 /HPF (<10); URINE SOURCE CATH; URINE WBC <10 /HPF (<10)
[2018-04-26] MEDS ORDERED: COUMADIN PO ONE (01:19)
[2018-04-26 03:00] LABS: INR 5.18
[2018-04-26 03:50] LABS: UR AMPHETAMINES QUAL NONE DETECTED (NONE DETECT); UR BARBITUATES QUAL NONE DETECTED (NONE DETECT); UR BENZODIAZEPIN QUAL NONE DETECTED (NONE DETECT); UR CANNABINOIDS QUAL NONE DETECTED (NONE DETECT); UR COCAINE QUAL NONE DETECTED (NONE DETECT); UR METHADONE QUAL NONE DETECTED (NONE DETECT); UR METHAMPHETAMINE QUAL NONE DETECTED (NONE DETECT); UR OPIATES QUAL PRESUMPTIVE POSITIVE (NONE DETECT); UR OXYCODONE QUAL NONE DETECTED (NONE DETECT); UR PCP QUAL NONE DETECTED (NONE DETECT); UR PROPOXYPHENE QUAL NONE DETECTED (NONE DETECT); UR TCA QUAL PRESUMPTIVE POSITIVE (NONE DETECT)
[2018-04-26] MEDS ORDERED: LIPITOR PO SCH (09:00)
[2018-04-26] MEDS: PRILOSEC PO SCH (10:57)
[2018-04-26] MEDS: NS 1,000 ML IV SCH (10:57)
[2018-04-26] MEDS: LYRICA PO SCH ×2 (10:58→20:00)
[2018-04-26] MEDS: NORVASC PO SCH (10:58)
--- NOTE | 2018-04-26 11:11 | HISTORY AND PHYSICAL ---
PRIMARY CARE PHYSICIAN: Dr. Jose Cramer. CHIEF COMPLAINT: Syncopal episode. HISTORY OF PRESENTING ILLNESS: This is a 62-year-old male who presents to [facility] ER via EMS after his family reported that he was sitting on his sofa and he passed out. He had a recent surgery to his left leg to clean out his arteries. States he has been taking Douglas, Flexeril, and amitriptyline. He had decreased responsiveness on arrival to the emergency room. His laboratory data showed a white blood cell count of 11.27. PT and INR were elevated at 50 and 5.18. D-dimer was 1.63. Creatinine was 1.3. His creatinine on 04/20/2018 was 0.6. Urinalysis was negative. Urine drug screen was presumptive positive for opiates and tricyclics. So, he was admitted for further evaluation and treatment. PAST MEDICAL HISTORY: Hypertension, hyperlipidemia, COPD, peripheral vascular disease, and a superficial femoral artery occlusion. PAST SURGICAL HISTORY: Atherosclerosis of bypass graft of the right lower extremity and atherosclerosis of bypass graft of the left lower extremity. FAMILY HISTORY: Reviewed and noncontributory. SOCIAL HISTORY: He currently lives with family. Smokes a pack of cigarettes a day and has done so for 40 years. Denies any alcohol or illicit drug use. ALLERGIES: He has no known drug allergies. HOME MEDICATIONS: He was taken amitriptyline 100 mg p.o. daily (I am going to hold that), Norvasc 5 mg p.o. daily, Lipitor 40 mg p.o. daily, Flexeril 10 mg p.o. daily (I am going to hold that), Douglas 10 one p.o. q.4 hours p.r.n., Prinivil 10 mg p.o. daily (I am going to hold that), Prilosec 40 mg p.o. daily, Lyrica 300 mg p.o. b.i.d., Requip 0.5 mg p.o. at bedtime, Flomax 0.4 mg p.o. daily (will be held), Incruse Ellipta 62.5 mcg inhalation daily, and Coumadin 4 mg p.o. at bedtime (will be held). LABORATORY DATA: Showed a white blood cell count of 11.27, hemoglobin 10.1, hematocrit 31.6, platelets 343,000. PT and INR of 50 and 5.8 with a D-dimer of 1.63. Sodium 137, potassium 4.6, chloride 99, CO2 27, BUN of 13, creatinine of 1.3. Again, a couple of days ago his creatinine was 0.6. Glucose of 134. Urinalysis was negative except for 3+ bacteria. Urine drug screen was presumptive positive for opiates and tricyclics. REVIEW OF SYSTEMS: He denied any fever, chills, blurred vision, dizziness, chest pain, coughing, shortness of breath. He denied any abdominal pain, constipation, diarrhea, burning or hurting with urination. PHYSICAL EXAMINATION: VITAL SIGNS: On arrival, he had a temperature of 97.4 degrees, pulse 89, respirations 18, blood pressure 105/49, saturating 100% on room air. GENERAL: This is a 62-year-old male who when he arrived to the emergency room was lethargic, difficult to arouse. This morning he is alert and oriented to person, place, and time, and is answering questions appropriately, but does not remember the events from last night or how he arrived to the emergency room. HENT: Normocephalic, atraumatic. Normal ENT inspection. Oropharynx and nares are clear. EYES: Pupils are equal, round, and reactive to light and accommodation. Extraocular movements are intact. NECK: Normal inspection. Normal range of motion. LUNGS: Clear to auscultation bilaterally with equal lung expansion and chest wall movement. HEART: With regular rate and rhythm. No murmurs, rubs, or gallops. ABDOMEN: Soft, nontender, nondistended. Bowel sounds are present x4 quadrants. MUSCULOSKELETAL: He has 5/5 strength x4 extremities. His lower extremities, his left is noted to have several superficial blister-like areas that have popped. He has some erythema to his barfield. It is cool to touch. Right leg is warm to touch. He is noted to have some purplish necrosis to the posterior portions of all 5 of his toes with the pinky toe being the worst. He states it has been like that for a long time due to his peripheral vascular disease. NEUROLOGICAL: The cranial nerves 2-12 appear grossly intact. ASSESSMENT: 1. Syncope. 2. Altered mental status, most likely secondary to over medications. 3. Coagulopathy. 4. Acute kidney injury. 5. Elevated D-dimer. 6. Tobacco abuse. PLAN: He was admitted to the medical unit. Placed on telemetry, O2 per protocol. Placed on normal saline at 75 mL an hour. We will continue his home medications as previously identified. Again, we will hold his Coumadin and his amitriptyline and his Flexeril at this time as it was felt that he was probably overmedicated on those. He stated to the nurse that he was taking his Douglas 10 every 4 hours and sometimes an extra 1 for the pain in his left leg, but he told me he only takes his Douglas 10 one time daily. We will recheck a BMP, CBC, and PT with INR in the a.m. Dictated by HERMELINDA Asencio for Bryan Larry MD cc: HERMELINDA Asencio MD Malcolm R. Hendricks, MD
[2018-04-26 11:21] LABS: HEMATOCRIT 30.7 % (42.0-52.0); HEMOGLOBIN 10.1 g/dL (14.0-18.0); MCH 31.9 PG (27-31); MCHC 32.9 g/dL (33-37); MCV 96.8 FL (81-99); MPV 9.5 FL (7.4-10.4); RBC 3.17 XMIL (4.7-6.1); RDW 14.6 % (11.5-14.5); WBC 9.15 X1000 (4.8-10.8)
[2018-04-26 11:38] LABS: AGAP 11; ALBUMIN 2.3 g/dL (3.5-5.0); ALKALINE PHOSPHATASE 192 U/L (32-122); BUN 9 mg/dL (8-22); CALCIUM 8.7 mg/dL (8.8-10.2); CHLORIDE 102 mmol/L (98-107); COSMO 275; CREATININE 0.7 mg/dL (0.7-1.2); ESTIMATED GFR > 60; GLUCOSE 112 mg/dL (70-104); GOT 50 U/L (10-34); GPT 42 U/L (10-44); POTASSIUM 4.5 mmol/L (3.5-5.1); SODIUM 138 mmol/L (136-145); TCO2 25 mmol/L (25-35); TOTAL PROTEIN 5.8 g/dL (6.3-8.3)
[2018-04-26 12:07] LABS: INR 4.94; PROTIME 48.2 Seconds (11.0-16.0)
[2018-04-26] MEDS: INCRUSE ELLIPTA INH SCH (12:27)
[2018-04-26] MEDS: NORCO-10 PO PRN ×2 (14:42→20:00)
--- NOTE | 2018-04-26 19:25 | HISTORY AND PHYSICAL ---
ADDENDUM: Patient seen and examined by myself, full note dictated and discussed with nurse practitioner. Patient presented to the hospital with an episode of syncope. This very well may have been iatrogenically induced with over-medication. We will admit him to the hospital. His INR is elevated. Will hold his Coumadin. We will follow his other medical problems. Further orders as needed. cc: Bryan Larry MD
[2018-04-26] MEDS: REQUIP PO SCH (20:00)
[2018-04-27] MEDS: NORCO-10 PO PRN ×3 (03:53→20:41)
[2018-04-27] MEDS: NS 1,000 ML IV SCH ×2 (03:53→16:42)
[2018-04-27] MEDS: PRILOSEC PO SCH ×2 (05:52→06:53)
[2018-04-27 06:21] LABS: BASO# 0.03 X1000 (0.0-0.2); BASO% 0.4 % (0.0-0.8); EOS# 0.11 X1000 (0.0-0.7); EOS% 1.5 % (0.0-10.0); HEMATOCRIT 31.2 % (42.0-52.0); IMM GRAN# 0.04 X1000 (0.0-0.04); IMM GRAN% 0.5 % (0.0-0.5); LYMPH# 1.33 X1000 (1.2-3.4); LYMPH% 17.6 % (20.5-51.1); MCH 30.7 PG (27-31); MCHC 32.1 g/dL (33-37); MCV 95.7 FL (81-99); MONO# 0.33 X1000 (0.11-0.59); MONO% 4.4 % (1.7-9.3); MPV 9.9 FL (7.4-10.4); NEUT# 5.71 X1000 (1.4-6.5); NEUT% 75.6 % (42.2-75.2); PLT 310 X1000 (130-400); RBC 3.26 XMIL (4.7-6.1); RDW 14.3 % (11.5-14.5); WBC 7.55 X1000 (4.8-10.8)
[2018-04-27 06:41] LABS: AGAP 13; BUN 8 mg/dL (8-22); CALCIUM 8.6 mg/dL (8.8-10.2); CHLORIDE 104 mmol/L (98-107); COSMO 277; CREATININE 0.6 mg/dL (0.7-1.2); ESTIMATED GFR > 60; GLUCOSE 82 mg/dL (70-104); SODIUM 140 mmol/L (136-145); TCO2 23 mmol/L (25-35)
[2018-04-27 07:03] LABS: INR 3.78
[2018-04-27] MEDS: INCRUSE ELLIPTA INH SCH (08:36)
[2018-04-27] MEDS: LYRICA PO SCH ×2 (08:53→20:42)
[2018-04-27] MEDS: NORVASC PO SCH (08:54)
--- NOTE | 2018-04-27 11:30 | CONSULTATION ---
DATE OF CONSULTATION: 04/27/2018 SUBJECTIVE: Mr. Joao Oro is a 62-year-old white male smoker who recently Dr. Higgins operated on for ischemic lower extremities. He has had a previous aortobifemoral arterial bypass graft and this had to be declotted per Dr. Higgins using both groins. At the end of the procedure it was felt that he had decent inflow. He was placed on Coumadin and recently discharged home from [facility]. He presents to the emergency department at [place] in the late evening of 04/25/2018. He was admitted yesterday and we were asked to evaluate him because of his recent surgery and also multiple wounds involving both lower extremities. He cannot put weight on his legs because he states that they sting and there has been nerve damage because of his ischemia. He was discharged home under the care of his son and . He presents with his Coumadin with his anticoagulation too high. OBJECTIVE: On exam, Mr. Oro is a slim middle aged white male who looks older than his stated age. He is awake, cooperative, no acute distress.HEENT: No jaundice. No oral lesions. No cervical or supraclavicular lymphadenopathy. Heart: His heart has a regular rate. Respiratory: He has no work of breathing. He has some wheezing on expiration. His abdomen was soft, nontender, without palpable mass. His groin incisions are well healed. He has palpable femoral pulses bilaterally. Both lower extremities were warm. He has sores involving mostly his left lower extremity. They seemed to be dry. Neurologically: He has no focal deficit but he is having problems placing any weight on his legs because of how weak he is and how they burn. LABORATORY: His INR was elevated and his Coumadin has been held. He still has decent flow to both lower extremities. PLAN: I agree with holding the Coumadin but as his INR comes more into the range for anticoagulation we need to restart his Coumadin to maintain flow through his aortobifemoral arterial bypass graft. He needs physical therapy and then he is a placement issue. cc: Robyn Vázquez MD
--- NOTE | 2018-04-27 15:30 | PROGRESS NOTE ---
DATE: 04/27/2018 SUBJECTIVE: Patient notes that he is having intense pain in his left lower extremity. His pain medication is not helping. He has been overtaking his pain medication at home. OBJECTIVE: Vital Signs: Temperature 98.1. Pulse 95, respiratory 20, BP 151/65. General: Patient is awake, currently in no respiratory distress, but he does appear to be in pain. HEENT: Normocephalic. Neck: Supple. CARDIOVASCULAR: Regular rate. Chest: Clear. Nonlabored. No wheezing. Abdomen: Soft. Nondistended. Extremities: Moves all extremities. Neurologic: No focal changes. Skin: He has multiple denuded areas on his left lower extremity in various stages of healing. ASSESSMENT: 1. Hypercoagulable. His INR is still elevated at 4.94. We will continue to hold his Coumadin. We will not use vitamin K currently as he has no signs or symptoms of bleeding. He certainly needs to remain anticoagulated. As his INR decreases, we will slowly start back his Coumadin. 2. Syncope likely secondary to medication over-usage at home. 3. Acute kidney injury, stable. 4. Chronic tobacco abuse. PLAN: As noted, continue to hold his Coumadin. Continue pain control. Further orders as needed. cc: Bryan Larry MD
[2018-04-27] MEDS: DILAUDID IV PRN (16:35)
[2018-04-27] MEDS: LIPITOR PO SCH (20:42)
[2018-04-27] MEDS: REQUIP PO SCH (20:42)
[2018-04-28] MEDS: NORCO-10 PO PRN ×2 (02:26→14:09)
[2018-04-28] MEDS: PRILOSEC PO SCH ×2 (05:45→06:14)
[2018-04-28] MEDS: NS 1,000 ML IV SCH ×2 (06:14→18:56)
[2018-04-28 07:57] LABS: HEMATOCRIT 32.7 % (42.0-52.0); HEMOGLOBIN 10.6 g/dL (14.0-18.0); MCH 31.3 PG (27-31); MCHC 32.4 g/dL (33-37); MCV 96.5 FL (81-99); MPV 9.7 FL (7.4-10.4); RBC 3.39 XMIL (4.7-6.1); RDW 14.3 % (11.5-14.5); WBC 6.5 X1000 (4.8-10.8)
[2018-04-28] MEDS: INCRUSE ELLIPTA INH SCH (08:00)
[2018-04-28 08:06] LABS: INR 2.94
[2018-04-28 08:13] LABS: AGAP 12; ALBUMIN 2.5 g/dL (3.5-5.0); ALKALINE PHOSPHATASE 174 U/L (32-122); BUN 5 mg/dL (8-22); CALCIUM 8.7 mg/dL (8.8-10.2); CHLORIDE 101 mmol/L (98-107); COSMO 274; CREATININE 0.6 mg/dL (0.7-1.2); ESTIMATED GFR > 60; GLUCOSE 88 mg/dL (70-104); GOT 41 U/L (10-34); GPT 36 U/L (10-44); POTASSIUM 4.1 mmol/L (3.5-5.1); SODIUM 139 mmol/L (136-145); TCO2 26 mmol/L (25-35)
[2018-04-28] MEDS: AVODART PO SCH (09:12)
[2018-04-28] MEDS: FLOMAX PO SCH (09:13)
[2018-04-28] MEDS: LYRICA PO SCH ×2 (09:13→21:48)
[2018-04-28] MEDS: NORVASC PO SCH (09:13)
[2018-04-28] MEDS ORDERED: LACTULOSE PO ONE (15:16)
[2018-04-28] MEDS: DILAUDID IV PRN ×2 (16:23→20:57)
--- NOTE | 2018-04-28 20:04 | PROGRESS NOTE ---
DATE: 04/28/2018 SUBJECTIVE: Patient states that he thinks he is getting a little bit stronger today. He did not have any nausea or vomiting last night or this morning. Still having coughing, lots of wheezing, lots of shortness of breath. Denies any chest pain, palpitations. Denies any production to his cough. PHYSICAL EXAMINATION: Vital Signs: Temp 98, pulse 101, respiratory 22, BP 131/57. General: Patient is awake, alert. He is currently in mild respiratory distress. He is very pleasant to talk with, lying flatly in the bed. HEENT: Normocephalic. Neck: Supple. Cardiovascular: Regular rate. Chest: Clear. Positive wheezing throughout. No crackles, positive rhonchi. Abdomen: Soft, nondistended. Extremities: Moves all extremities. Neurologic: No focal changes. ASSESSMENT: 1. Chronic obstructive pulmonary disease with exacerbation. 2. Hypoxic respiratory failure. cc: Bryan Larry MD
--- NOTE | 2018-04-28 20:19 | PROGRESS NOTE ---
DATE: 04/28/2018 SUBJECTIVE: Patient notes that his foot pain is better this morning. It did not hurt as bad last night as it had been yesterday. However, he is still requiring pain medication on a regular basis. Denies any chest pain, palpitations. Denies any fevers or chills. PHYSICAL EXAMINATION: Vital Signs: Reviewed and stable. He is afebrile. Blood pressure is stable. Heart rate 101. General: He is awake, alert, oriented. He is in no current respiratory distress. HEENT: Normocephalic, atraumatic. NANY. Neck: Supple. No JVD. Cardiovascular: Regular rate. No murmurs. Chest: Clear, nonlabored. Abdomen: Soft, nondistended. Extremities: Moves all extremities well. His left extremity is still bandaged. ASSESSMENT: 1. Syncope, likely secondary to medication effect. 2. Acute on chronic pain secondary to ischemia in his left foot. 3. Coagulopathy. INR was 4.94 on admit, currently down to 2.9. We will restart his Coumadin today as I would expect it to continue to drop as he has not had Coumadin in 2 days. 4. Chronic tobacco abuse. PLAN: Will continue home medications, restart Coumadin. Hopefully he can be discharged home tomorrow if his INR is stable. If not, we will start Lovenox and continue. -1 cc: Bryan Larry MD
--- NOTE | 2018-04-28 20:33 | PROGRESS NOTE ---
DATE: 04/28/2018 Mr. Joao Oro just recently underwent vascular surgery per Dr. Higgins. He had to have a previous aortobifemoral arterial bypass graft both limbs declotted. This was felt to be successful but because of his severe ischemia of his lower extremities and now revascularization, he has pain in both lower extremities. He was sent home on anticoagulation and presented to [facility] Emergency Department because of his lower extremity pain but his coagulation studies were too high. His Coumadin has been stopped and Dr. Larry has Coumadin 4 mg ordered for tomorrow which I agree with. I feel that he needs to remain anticoagulated because of his vascular situation. I think he has social issues about his medications and being cared for. He has ulcers involving both lower extremities which hopefully will heal better now with better blood flow. cc: Robyn Vázquez MD
[2018-04-28] MEDS: LIPITOR PO SCH (21:48)
[2018-04-28] MEDS: COUMADIN PO SCH (21:49)
[2018-04-28] MEDS: REQUIP PO SCH (21:49)
[2018-04-29] MEDS: PRILOSEC PO SCH (06:13)
[2018-04-29] MEDS: NORCO-10 PO PRN (06:19)
[2018-04-29 06:58] LABS: HEMATOCRIT 32.5 % (42.0-52.0); HEMOGLOBIN 10.3 g/dL (14.0-18.0); MCH 30.6 PG (27-31); MCHC 31.7 g/dL (33-37); MCV 96.4 FL (81-99); MPV 9.9 FL (7.4-10.4); RBC 3.37 XMIL (4.7-6.1); RDW 14.3 % (11.5-14.5); WBC 4.87 X1000 (4.8-10.8)
[2018-04-29] MEDS: INCRUSE ELLIPTA INH SCH (07:30)
[2018-04-29 07:48] LABS: INR 1.71; PROTIME 20.9 Seconds (11.0-16.0)
[2018-04-29] MEDS: DILAUDID IV PRN ×6 (09:30→23:40)
[2018-04-29] MEDS: FLOMAX PO SCH (09:36)
[2018-04-29] MEDS: LYRICA PO SCH ×2 (09:36→21:05)
[2018-04-29] MEDS: AVODART PO SCH (09:36)
[2018-04-29] MEDS: MIRALAX PO SCH (09:36)
[2018-04-29] MEDS: NORVASC PO SCH (09:36)
[2018-04-29] MEDS: LOVENOX SUBQ SCH ×2 (09:42→21:06)
[2018-04-29] MEDS: NS 1,000 ML IV SCH ×2 (11:47→23:47)
[2018-04-29] MEDS: COUMADIN PO SCH (21:06)
[2018-04-29] MEDS: LIPITOR PO SCH (21:06)
[2018-04-29] MEDS: REQUIP PO SCH (21:06)
[2018-04-30] MEDS: NORCO-10 PO PRN (01:41)
[2018-04-30] MEDS: DILAUDID IV PRN ×5 (02:39→20:01)
--- NOTE | 2018-04-30 03:15 | PROGRESS NOTE ---
DATE: 04/29/2018 SUBJECTIVE: The patient today notes that his foot is hurting, he is unable to ambulate. Denies any chest pain or palpitations. Denies any fevers or chills. OBJECTIVE: Vital Signs: Temperature 98, pulse 101, respirations 20, blood pressure 131/57. General: The patient is awake, alert. Currently he is in no respiratory distress but he does appear to be in pain. HEENT: Normocephalic. Neck: Supple. No JVD. CARDIOVASCULAR: Regular rate. No murmurs. Chest: Clear and unlabored. Abdomen: Soft, nondistended. Extremities: Moves all extremities. His left lower extremity has multiple abrasions that are healing. ASSESSMENT: 1. Peripheral vascular disease. His INR is low. We will start Lovenox and increase his Coumadin. 2. Pain. 3. Hypertension. PLAN: We will continue with the hospital. Continue pain control, IV fluids and increase his Coumadin. cc: Bryan Larry MD
[2018-04-30] MEDS: PRILOSEC PO SCH (06:26)
[2018-04-30 06:57] LABS: HEMATOCRIT 30.5 % (42.0-52.0); HEMOGLOBIN 9.8 g/dL (14.0-18.0); MCH 30.7 PG (27-31); MCHC 32.1 g/dL (33-37); MCV 95.6 FL (81-99); MPV 9.9 FL (7.4-10.4); RBC 3.19 XMIL (4.7-6.1); RDW 14.1 % (11.5-14.5); WBC 4.88 X1000 (4.8-10.8)
[2018-04-30 07:11] LABS: INR 1.74; PROTIME 21.2 Seconds (11.0-16.0)
[2018-04-30] MEDS: NORVASC PO SCH ×2 (07:34→14:35)
[2018-04-30] MEDS: LYRICA PO SCH ×3 (07:34→20:37)
[2018-04-30] MEDS: AVODART PO SCH ×2 (07:35→12:16)
[2018-04-30] MEDS: LOVENOX SUBQ SCH ×3 (07:35→21:40)
[2018-04-30] MEDS: FLOMAX PO SCH ×2 (07:35→12:16)
[2018-04-30] MEDS: MIRALAX PO SCH ×2 (07:35→14:34)
[2018-04-30] MEDS: INCRUSE ELLIPTA INH SCH (09:01)
--- NOTE | 2018-04-30 20:30 | PROGRESS NOTE ---
DATE: 04/30/2018 SUBJECTIVE: Patient has no new complaints this morning. States his foot still hurts. States he is unable to get out of bed secondary to his pain in his lower extremities. PHYSICAL EXAMINATION: Vital Signs: Temperature 97.7, pulse 88, respiratory 22 , BP 145/55. General: Patient is awake. He is in no current respiratory distress. He is lying flat in bed. HEENT: Normocephalic. Neck: Supple. CARDIOVASCULAR: Regular rate. Chest: Clear. Abdomen: Soft. Extremities: Moves all extremities. Neurologic: No changes. Skin: Still has denuded areas and heel abrasions on his left lower extremity and 1+ edema in his right lower extremity. ASSESSMENT: 1. Severe peripheral vascular disease. 2. Adult failure to thrive. 3. Hypertension. 4. Hyperlipidemia. PLAN: Will continue patient in the hospital. Continue to follow him. Hopefully, he can transition to rehab when bed is available. His INR is still low. Needs to be greater than 2. We will continue Lovenox until that time. cc: Bryan Larry MD MTDD
[2018-04-30] MEDS: REQUIP PO SCH (20:36)
[2018-04-30] MEDS: LIPITOR PO SCH (20:37)
[2018-04-30] MEDS: COUMADIN PO SCH (20:37)
[2018-05-01] MEDS: DILAUDID IV PRN ×2 (01:25→20:48)
[2018-05-01 06:01] LABS: HEMATOCRIT 32.4 % (42.0-52.0); HEMOGLOBIN 10.6 g/dL (14.0-18.0); MCH 30.5 PG (27-31); MCHC 32.7 g/dL (33-37); MCV 93.4 FL (81-99); MPV 9.8 FL (7.4-10.4); RBC 3.47 XMIL (4.7-6.1); RDW 13.9 % (11.5-14.5); WBC 5.94 X1000 (4.8-10.8)
[2018-05-01] MEDS: PRILOSEC PO SCH (06:03)
[2018-05-01 06:11] LABS: AGAP 9; BUN 8 mg/dL (8-22); CALCIUM 8.9 mg/dL (8.8-10.2); CHLORIDE 103 mmol/L (98-107); COSMO 274; CREATININE 0.7 mg/dL (0.7-1.2); ESTIMATED GFR > 60; GLUCOSE 97 mg/dL (70-104); SODIUM 138 mmol/L (136-145); TCO2 26 mmol/L (25-35)
[2018-05-01 06:18] LABS: INR 1.68; PROTIME 20.6 Seconds (11.0-16.0)
[2018-05-01] MEDS: INCRUSE ELLIPTA INH SCH (08:16)
[2018-05-01] MEDS: AVODART PO SCH (08:22)
[2018-05-01] MEDS: MIRALAX PO SCH (08:22)
[2018-05-01] MEDS: FLOMAX PO SCH (08:22)
[2018-05-01] MEDS: NORCO-10 PO PRN ×2 (08:22→18:54)
[2018-05-01] MEDS: LYRICA PO SCH ×2 (08:22→20:44)
[2018-05-01] MEDS: NORVASC PO SCH (08:22)
[2018-05-01] MEDS: LOVENOX SUBQ SCH ×2 (08:34→21:46)
--- NOTE | 2018-05-01 10:32 | PROGRESS NOTE ---
DATE: 05/01/2018 SUBJECTIVE: Patient notes that he is still having lots of pain in his left leg. States he is unable to get up and ambulate due to the pain. PHYSICAL EXAMINATION: Vital Signs: Temperature 97.9, pulse 90, respiratory rate 20, BP 148/51. General: Patient is awake, alert. Currently in no distress. Overall feeling better. HEENT: Normocephalic, atraumatic. NANY. Neck: Supple. CARDIOVASCULAR: Regular rate. Chest: Clear, nonlabored. Abdomen: Soft, nondistended. ASSESSMENT: 1. Severe peripheral vascular disease, status post surgical repair. 2. Syncope, resolved. 3. Coagulopathy. His INR is actually still low at 1.4, despite 3 days of Coumadin. Therefore, we will increase his Coumadin to 7.5 daily. Continue Lovenox. 4. Elevated D-dimer due to severe vascular disease as well as recent stenting. 5. Chronic tobacco abuse. PLAN: We will increase Coumadin. The patient will need rehab on discharge. We will continue to follow. cc: Bryan Larry MD
[2018-05-01] MEDS: LIPITOR PO SCH (20:45)
[2018-05-01] MEDS: COUMADIN PO SCH (20:45)
[2018-05-01] MEDS: REQUIP PO SCH (20:45)
[2018-05-02] MEDS: DILAUDID IV PRN ×5 (00:39→20:32)
[2018-05-02] MEDS: NORCO-10 PO PRN ×3 (02:37→23:09)
[2018-05-02] MEDS: PRILOSEC PO SCH (06:07)
[2018-05-02 06:14] LABS: INR 2.08; PROTIME 24.4 Seconds (11.0-16.0)
[2018-05-02] MEDS: INCRUSE ELLIPTA INH SCH (08:22)
[2018-05-02] MEDS: NORVASC PO SCH (08:40)
[2018-05-02] MEDS: LYRICA PO SCH ×2 (08:40→20:31)
[2018-05-02] MEDS: FLOMAX PO SCH (08:40)
[2018-05-02] MEDS: AVODART PO SCH (08:40)
[2018-05-02] MEDS: LOVENOX SUBQ SCH ×2 (08:40→23:10)
[2018-05-02] MEDS: MIRALAX PO SCH (08:40)
--- NOTE | 2018-05-02 15:43 | PROGRESS NOTE ---
DATE: 05/02/2018 SUBJECTIVE: The patient notes that he is feeling better today. He is still having some pain in his bilateral lower extremities. However, notes that he has been able to put some pressure on them. He has been able to get to the bedside commode but is unable to get any further secondary to the pain in his feet and legs. OBJECTIVE: Vital signs: Temperature is 97.6, pulse 91, respiratory rate 20 and blood pressure is 116/44. General: The patient is awake, alert. Very pleasant to talk with. He is much more oriented today. HEENT: Normocephalic. Neck: Supple. CV: Regular rate. Chest: Clear. Nonlabored. Abdomen: Soft and nondistended. Extremities: Moves all extremities. ASSESSMENT: 1. Severe peripheral vascular disease in the bilateral lower extremities, stable. 2. Chronic pain from his peripheral vascular disease, stable. 3. Coagulopathy. 4. Chronic tobacco abuse. Again discussed with patient that this will not help his vascular disease. 5. Coagulopathy. His INR is actually currently at 2.08. Therefore, we will stop his Lovenox and will follow. Hopefully, to rehab soon. cc: Bryan Larry MD
[2018-05-02] MEDS: REQUIP PO SCH (20:31)
[2018-05-02] MEDS: COUMADIN PO SCH (20:31)
[2018-05-02] MEDS: LIPITOR PO SCH (20:32)
[2018-05-03] MEDS: DILAUDID IV PRN ×4 (03:05→22:16)
[2018-05-03] MEDS: PRILOSEC PO SCH (06:25)
[2018-05-03 06:47] LABS: INR 2.66; PROTIME 29.6 Seconds (11.0-16.0)
[2018-05-03] MEDS: INCRUSE ELLIPTA INH SCH (08:03)
[2018-05-03] MEDS: AVODART PO SCH (08:20)
[2018-05-03] MEDS: NORCO-10 PO PRN ×2 (08:20→20:15)
[2018-05-03] MEDS: FLOMAX PO SCH (08:20)
[2018-05-03] MEDS: NORVASC PO SCH (08:20)
[2018-05-03] MEDS: MIRALAX PO SCH (08:22)
[2018-05-03] MEDS: LOVENOX SUBQ SCH ×3 (08:22→21:42)
[2018-05-03] MEDS: LYRICA PO SCH ×2 (08:22→20:15)
--- NOTE | 2018-05-03 20:07 | PROGRESS NOTE ---
DATE: 05/03/2018 SUBJECTIVE: Patient states that he is starting to feel a little bit better. Still having lots of pain. He was actually able to ambulate a little bit today with assistance. PHYSICAL EXAMINATION: Vital Signs: Temp 97.6, pulse 81, respiratory 20, BP 122/68. General: Patient is awake, currently in no respiratory distress. Very pleasant to talk with sitting on the side of bed. HEENT: Normocephalic. Neck: Supple. Cardiovascular: Regular rate. Chest: Clear. Abdomen: Soft. Extremities: Moves all extremities. Skin: He still has abraded lesions on his left lower extremity. These are in various stages of healing. ASSESSMENT: 1. Syncope, resolved. 2. Altered mental status, resolved. 3. Coagulopathy. INR is currently 2.6. We will continue to follow his INR. It has slowly increased from 1.4 to 2.6 without changing his medication. We will follow this and adjust as needed. 4. Severe peripheral vascular disease. 5. Adult failure to thrive. We will continue to follow. We will begin looking for rehab bed if he is unable to regain his strength. cc: Bryan Larry MD
[2018-05-03] MEDS: COUMADIN PO SCH (20:15)
[2018-05-03] MEDS: REQUIP PO SCH (20:16)
[2018-05-03] MEDS: LIPITOR PO SCH (20:16)
[2018-05-04] MEDS: DILAUDID IV PRN ×3 (05:56→19:37)
[2018-05-04] MEDS: PRILOSEC PO SCH (06:42)
[2018-05-04] MEDS: INCRUSE ELLIPTA INH SCH (07:54)
[2018-05-04] MEDS: LYRICA PO SCH ×2 (10:06→21:52)
[2018-05-04] MEDS: FLOMAX PO SCH (10:07)
[2018-05-04] MEDS: MIRALAX PO SCH (10:07)
[2018-05-04] MEDS: NORVASC PO SCH (10:07)
[2018-05-04] MEDS: AVODART PO SCH (10:07)
[2018-05-04] MEDS: NORCO-10 PO PRN (10:14)
[2018-05-04 10:55] LABS: INR 2.6; PROTIME 29.1 Seconds (11.0-16.0)
--- NOTE | 2018-05-04 13:51 | GENERAL SURGERY PROGRESS NOTE ---
DATE: 05/04/2018 SUBJECTIVE: Mr. Oro is complaining bitterly about his lower extremity pain both feet. He is post thrombectomy of his aortobifemoral graft two weeks ago. He was sent home on Coumadin. He was brought back in because of the pain and ulceration of his left ankle. OBJECTIVE: Vital signs: He is afebrile. Heart rate 109, blood pressure 148/59. Extremities: He does have palpable femoral pulses. He does have ulceration of the anterior aspect of his left ankle and foot. He has ischemic toes on the left. ASSESSMENT AND PLAN: It appears he has a history of stenting in the left SFA that is occluded. It does appear from his previous CTA back in March that he has runoff in his left foot. The plan will then be to get an DALJIT on him and then we will repeat his CTA with runoff to see where we stand regarding his distal vasculature. cc: Mynor Higgins MD
[2018-05-04] MEDS ORDERED: DILAUDID IV PRN (15:44)
--- NOTE | 2018-05-04 16:02 | PROGRESS NOTE ---
DATE: 05/04/2018 Cardiovascular: Regular rate and rhythm. Pulmonary: Bilateral breath sounds, clear to auscultation. GI: Was soft, nontender, nondistended. Bowel sounds were positive. LABORATORY DATA: White count we do not have 1. INR is 2.6. His last set of labs though been normal and his white count has been normal. PROBLEM LIST: 1. Ischemic foot with severe peripheral vascular disease. We will continue treatment as described. INR is therapeutic. Per Dr. Higgins who has evaluated him today we are going to do an aortic runoff and an arterial Doppler today to see if anything else is going on. Pain control. We will continue to follow closely. 2. Coagulopathy but this is intentional for severe peripheral vascular disease, INR is therapeutic. I am going to add some Pletal and see how he does just for pain control. He may also need some neuropathic pain control as well. White count 5, hemoglobin and hematocrit 10 and 32, platelets 319,000. Chemistries look okay. DISPOSITION: Pending clinical status and Dr. Higgins's workup. Will continue to follow closely. cc: Jaden Leavitt MD
--- NOTE | 2018-05-04 16:22 | Diag Imaging Result Doc PS360 ---
EXAM: CT ANGIOGRAM AORTA W/RUNOFF - 05/04/2018 HISTORY: ischemic ulceration foot TECHNIQUE: CT angiogram aorta with runoff with intravenous contrast. Axial, coronal, 2-D coronal MIP images are obtained. COMPARISON: 03/17/2018 FINDINGS: There is increased atherosclerotic plaquing just below the takeoffs of the renal arteries in the [place] aorta and/or proximal aortic graft. This focally narrows the lumen up to approximately 67%, and is possibly ulcerated. There is some atherosclerotic plaquing at the proximal superior mesenteric artery similar to prior. There is occlusion of the [place] bilateral common iliac similar to prior. The right limb of the aorto bifemoral graft is occluded, similar to prior. The left limb of the aortobifemoral graft remains patent. The proximal and mid right superficial femoral artery occluded. There is reconstitution of the distal right superficial femoral artery, with generally moderate stenosis. The left superficial femoral graft is occluded similar to prior. There is reconstitution of the distal left superficial femoral artery similar to prior. There is mild to moderate stenosis of the right popliteal artery, similar to prior. There is grossly intact three vessel lower leg runoff on the right. There is a calcified plaque with moderate stenosis at the left popliteal trifurcation, just below the takeoff of the anterior cerebral artery. The left anterior tibial artery is generally small in caliber and appears to be occluded above the ankle. The left posterior tibial and peroneal arteries appear grossly intact. IMPRESSION: Substantially increased atherosclerotic plaquing in the vicinity of the junction of the [place] aorta and aortic graft, just below the takeoffs of the renal arteries, with focal luminal narrowing up to approximate 67%. This plaque is possibly ulcerated. Some atherosclerotic plaquing at proximal superior mesenteric artery similar to prior. Occlusion of the right iliac limb of the aortobifemoral graft, similar to prior. The left iliac limb remains patent. Occlusion of the right superficial femoral artery, with reconstitution of narrowed distal right SFA, similar to prior. Occlusion of left superficial femoral artery graft, with reconstitution of the distal left SFA distal to the graft, similar to prior. Mild to moderate stenosis at right popliteal artery. Grossly patent three vessel lower leg runoff on the right. Moderate stenosis at left popliteal trifurcation just below the takeoff of the anterior tibial artery. There is primarily two-vessel lower leg runoff on the left consisting of the posterior tibial and peroneal arteries. The left anterior tibial artery appears to be occluded above the ankle. Electronically signed by Jose Steve 05/04/2018 4:19 PM
[2018-05-04] MEDS: PERCOCET-10 PO PRN (16:25)
[2018-05-04] MEDS: REQUIP PO SCH (21:52)
[2018-05-04] MEDS: COUMADIN PO SCH (21:52)
[2018-05-04] MEDS: PLETAL PO SCH (21:52)
[2018-05-04] MEDS: LIPITOR PO SCH (21:52)
[2018-05-04] MEDS: NEURONTIN PO SCH (21:53)
[2018-05-05] MEDS: PERCOCET-10 PO PRN ×2 (06:25→13:27)
[2018-05-05] MEDS: PRILOSEC PO SCH (06:26)
[2018-05-05 06:32] LABS: BASO# 0.02 X1000 (0.0-0.2); BASO% 0.3 % (0.0-0.8); EOS# 0.16 X1000 (0.0-0.7); EOS% 2.3 % (0.0-10.0); HEMATOCRIT 34.2 % (42.0-52.0); HEMOGLOBIN 11.3 g/dL (14.0-18.0); IMM GRAN# 0.01 X1000 (0.0-0.04); IMM GRAN% 0.1 % (0.0-0.5); LYMPH# 1.14 X1000 (1.2-3.4); LYMPH% 16.4 % (20.5-51.1); MCH 30.7 PG (27-31); MCV 92.9 FL (81-99); MONO# 0.36 X1000 (0.11-0.59); MONO% 5.2 % (1.7-9.3); NEUT# 5.28 X1000 (1.4-6.5); NEUT% 75.7 % (42.2-75.2); PLT 317 X1000 (130-400); RBC 3.68 XMIL (4.7-6.1); WBC 6.97 X1000 (4.8-10.8)
[2018-05-05 06:37] LABS: AGAP 11; BUN 8 mg/dL (8-22); CHLORIDE 102 mmol/L (98-107); COSMO 278; CREATININE 0.5 mg/dL (0.7-1.2); ESTIMATED GFR > 60; GLUCOSE 136 mg/dL (70-104); POTASSIUM 3.7 mmol/L (3.5-5.1); SODIUM 139 mmol/L (136-145); TCO2 27 mmol/L (25-35)
--- NOTE | 2018-05-05 07:27 | VASCULAR LAB ---
PROCEDURE NAME: Arterial Bilateral Legs - 05/04/2018 REQUESTING PHYSICIAN: Dr. Higgins. INDICATION: Ulcer. FINDINGS: Segmental pressures are as follows: Right brachial 110 and left 107. Left proximal thigh 90. Left distal thigh 85. Left popliteal 71. Left dorsalis pedis 55. Left OPAL 0.50. Waveform analysis: There are essentially no waveforms noted in the entirety of the right side. On the left side, there are waveforms noted to the level of the calf but essentially no waveforms noted to the toes on the left side. INTERPRETATION: Proximal occlusion noted on the right side with no waveforms or flow noted. On the left side, there is likely disease at the level of the superficial femoral artery or at the trifurcation distally. In the context of the patient having a aortobifemoral, the patient may benefit from CT angiography to delineate the anatomy better and to see if the aortobifemoral is occluded. cc: MD Mynor Segundo MD
[2018-05-05] MEDS: INCRUSE ELLIPTA INH SCH (08:00)
[2018-05-05] MEDS: MIRALAX PO SCH (08:34)
[2018-05-05] MEDS: NEURONTIN PO SCH (08:34)
[2018-05-05] MEDS: PLETAL PO SCH ×2 (08:34→20:56)
[2018-05-05] MEDS: FLOMAX PO SCH (08:34)
[2018-05-05] MEDS: NORVASC PO SCH (08:35)
[2018-05-05] MEDS: AVODART PO SCH (08:35)
[2018-05-05] MEDS: LYRICA PO SCH ×2 (08:35→20:55)
[2018-05-05 11:56] LABS: INR 2.34; PROTIME 26.8 Seconds (11.0-16.0)
--- NOTE | 2018-05-05 12:22 | GENERAL SURGERY PROGRESS NOTE ---
DATE: 05/05/2018 Mr. Oro's aortogram unfortunately shows occlusion of his right limb of his graft once again. This is in spite of adequate anticoagulation so that means something structural regarding the stent and the graft is complicating his flow to his right limb. He will therefore require a femorofemoral bypass in order to adequately perfuse his right lower extremity. In addition, since he has wounds on his left ankle, I think a femoropopliteal bypass would be indicated as well. I have discussed this briefly with Mr. Oro and we will look at timing. cc: Mynor Higgins MD
[2018-05-05] MEDS ORDERED: KLONOPIN PO PRN (15:29)
[2018-05-05] MEDS ORDERED: NORVASC PO ONE (15:35)
--- NOTE | 2018-05-05 15:49 | PROGRESS NOTE ---
DATE: 05/05/2018 SUBJECTIVE: Patient has no focal complaints. OBJECTIVE: Blood pressure is 167/51, heart rate of 104, respiratory rate 16, temperature 97.9 degrees, satting 95% on room air. Patient is very tearful today. He is just not happy about the current nubia on. I think he is just unhappy about going through surgery again. LABORATORY DATA: White count 6, hemoglobin and hematocrit 11 and 34, platelets 317. INR 2.3. PROBLEM LIST: 1. Ischemic foot on the left with severe peripheral vascular disease status post a femoral- popliteal bypass and stenting. Now, he probably has a recurrent stenosis of his current stent, so we will continue to follow closely. Dr. Higgins is planning for angioplasty or stent analysis, possibly another bypass, but it will be later in the week. At this point, we will continue anticoagulation I think he said until , and then we will start taking him off. At this point, he is subtherapeutic. Dr. Higgins is preferring an INR above 2.5. He is 2.3, so I am going to adjust up his Coumadin for the time being. 2. Coagulopathy, but intentional for severe peripheral vascular disease. INR Coumadin is being adjusted. 3. Hypertension is not well controlled. I am going to bump up his amlodipine and see how he does. DISPOSITION: Pending his clinical status, anticipate transfer though in later week for revascularization procedure later in the week. cc: Jaden Leavitt MD
[2018-05-05] MEDS: LIPITOR PO SCH (20:55)
[2018-05-05] MEDS: REQUIP PO SCH (20:56)
[2018-05-05] MEDS: COUMADIN PO SCH (20:56)
[2018-05-05] MEDS: DILAUDID IV PRN (21:07)
[2018-05-06] MEDS: DILAUDID IV PRN ×2 (00:50→22:54)
[2018-05-06 05:52] LABS: BASO# 0.05 X1000 (0.0-0.2); BASO% 0.7 % (0.0-0.8); EOS# 0.24 X1000 (0.0-0.7); EOS% 3.6 % (0.0-10.0); HEMATOCRIT 35.6 % (42.0-52.0); HEMOGLOBIN 11.4 g/dL (14.0-18.0); IMM GRAN# 0.01 X1000 (0.0-0.04); IMM GRAN% 0.1 % (0.0-0.5); LYMPH# 1.76 X1000 (1.2-3.4); LYMPH% 26.3 % (20.5-51.1); MCH 30.2 PG (27-31); MCV 94.2 FL (81-99); MONO# 0.49 X1000 (0.11-0.59); MONO% 7.3 % (1.7-9.3); NEUT# 4.13 X1000 (1.4-6.5); PLT 330 X1000 (130-400); RBC 3.78 XMIL (4.7-6.1); RDW 13.9 % (11.5-14.5); WBC 6.68 X1000 (4.8-10.8)
[2018-05-06 06:00] LABS: INR 2.51; PROTIME 28.3 Seconds (11.0-16.0)
[2018-05-06 06:14] LABS: AGAP 12; BUN 10 mg/dL (8-22); CALCIUM 9.2 mg/dL (8.8-10.2); CHLORIDE 101 mmol/L (98-107); COSMO 285; CREATININE 0.7 mg/dL (0.7-1.2); ESTIMATED GFR > 60; GLUCOSE 153 mg/dL (70-104); POTASSIUM 4.1 mmol/L (3.5-5.1); SODIUM 142 mmol/L (136-145); TCO2 29 mmol/L (25-35)
[2018-05-06] MEDS: PRILOSEC PO SCH (06:26)
[2018-05-06] MEDS: FLOMAX PO SCH (09:20)
[2018-05-06] MEDS: NORVASC PO SCH (09:20)
[2018-05-06] MEDS: LYRICA PO SCH ×2 (09:20→20:44)
[2018-05-06] MEDS: MIRALAX PO SCH (09:20)
[2018-05-06] MEDS: PLETAL PO SCH ×2 (09:20→20:43)
[2018-05-06] MEDS: AVODART PO SCH (09:20)
[2018-05-06] MEDS: PERCOCET-10 PO PRN ×2 (11:32→20:44)
[2018-05-06] MEDS: INCRUSE ELLIPTA INH SCH (15:42)
[2018-05-06] MEDS: LIPITOR PO SCH (20:44)
[2018-05-06] MEDS: COUMADIN PO SCH (20:44)
[2018-05-06] MEDS: REQUIP PO SCH (20:44)
--- NOTE | 2018-05-06 20:53 | PROGRESS NOTE ---
DATE: 05/06/2018 SUBJECTIVE: Patient has no focal complaints. OBJECTIVE: Blood pressure 105/55, heart rate 115, respiratory rate of 20, temperature 97.8. Cardiovascular: Regular rate and rhythm. Pulmonary: Bilateral breath sounds. Clear to auscultation. Gastrointestinal: Soft, nontender, nondistended. Bowel sounds are positive. Extremities: He still has bilateral discomfort there. PROBLEM LIST: 1. Ischemic foot with severe peripheral vascular disease. We will continue treatment. He is on anticoagulation. Dr. Higgins is looking at revascularization options within the next several days. Will continue Coumadin from standpoint now. 2. Coagulopathy with severe peripheral vascular disease. We will continue treatment. INR is at goal around 2.5. We will continue to monitor his PT/INR. 3. Hypertension. Appears to be stable. DISPOSITION: Pending his clinical status we will continue to follow closely. cc: Jaden Leavitt MD
[2018-05-07] MEDS: PRILOSEC PO SCH (06:11)
[2018-05-07] MEDS: PERCOCET-10 PO PRN ×3 (06:11→18:23)
[2018-05-07 06:49] LABS: BASO# 0.05 X1000 (0.0-0.2); BASO% 0.8 % (0.0-0.8); EOS# 0.24 X1000 (0.0-0.7); EOS% 3.7 % (0.0-10.0); HEMATOCRIT 34.7 % (42.0-52.0); HEMOGLOBIN 11.2 g/dL (14.0-18.0); IMM GRAN# 0.01 X1000 (0.0-0.04); IMM GRAN% 0.2 % (0.0-0.5); LYMPH# 1.49 X1000 (1.2-3.4); LYMPH% 23.2 % (20.5-51.1); MCH 30.4 PG (27-31); MCHC 32.3 g/dL (33-37); MCV 94.3 FL (81-99); MONO# 0.43 X1000 (0.11-0.59); MONO% 6.7 % (1.7-9.3); MPV 9.8 FL (7.4-10.4); NEUT# 4.19 X1000 (1.4-6.5); NEUT% 65.4 % (42.2-75.2); PLT 309 X1000 (130-400); RBC 3.68 XMIL (4.7-6.1); RDW 13.8 % (11.5-14.5); WBC 6.41 X1000 (4.8-10.8)
[2018-05-07 07:03] LABS: AGAP 10; BUN 9 mg/dL (8-22); CALCIUM 9.1 mg/dL (8.8-10.2); CHLORIDE 102 mmol/L (98-107); COSMO 282; CREATININE 0.6 mg/dL (0.7-1.2); ESTIMATED GFR > 60; GLUCOSE 138 mg/dL (70-104); POTASSIUM 3.9 mmol/L (3.5-5.1); SODIUM 141 mmol/L (136-145); TCO2 29 mmol/L (25-35)
[2018-05-07 07:14] LABS: INR 3.11; PROTIME 33.5 Seconds (11.0-16.0)
[2018-05-07] MEDS: INCRUSE ELLIPTA INH SCH (07:58)
[2018-05-07] MEDS: AVODART PO SCH (09:44)
[2018-05-07] MEDS: MIRALAX PO SCH (09:44)
[2018-05-07] MEDS: NORVASC PO SCH (09:44)
[2018-05-07] MEDS: PLETAL PO SCH ×2 (09:44→20:36)
[2018-05-07] MEDS: FLOMAX PO SCH (09:44)
[2018-05-07] MEDS: LYRICA PO SCH ×2 (09:44→20:36)
--- NOTE | 2018-05-07 12:12 | GENERAL SURGERY PROGRESS NOTE ---
DATE: 05/07/2017 Mr. Oro seems reasonably comfortable. The ulcerations on the ankle persists. The plan is to do a femoral-femoral bypass as well as a femoral popliteal bypass on 05/12/2018. We will image his greater saphenous vein to see about its usability. I discussed this plan with him and his . They understand. He will at some point be [facility] in preparation for surgery on 05/12/2018. cc: Mynor Higgins MD
[2018-05-07] MEDS: REQUIP PO SCH (20:36)
[2018-05-07] MEDS: LIPITOR PO SCH (20:36)
[2018-05-08] MEDS: PERCOCET-10 PO PRN ×4 (00:57→23:55)
[2018-05-08] MEDS: PRILOSEC PO SCH (06:26)
[2018-05-08] MEDS: INCRUSE ELLIPTA INH SCH (07:33)
[2018-05-08] MEDS: LYRICA PO SCH ×2 (08:59→20:45)
[2018-05-08] MEDS: FLOMAX PO SCH (08:59)
[2018-05-08] MEDS: NORVASC PO SCH (08:59)
[2018-05-08] MEDS: PLETAL PO SCH ×2 (08:59→20:45)
[2018-05-08] MEDS: AVODART PO SCH (08:59)
[2018-05-08] MEDS: MIRALAX PO SCH (08:59)
[2018-05-08] MEDS: DILAUDID IV PRN ×4 (10:10→20:46)
--- NOTE | 2018-05-08 16:27 | PROGRESS NOTE ---
DATE: 05/08/2018 SUBJECTIVE: The patient has no major complaints. He looks well. OBJECTIVE: Vital Signs: Blood pressure 122/69, heart rate 124, respiratory rate 17. Cardiovascular: Regular rate and rhythm. Pulmonary: Bilateral breath sounds clear to auscultation. Gastrointestinal: Soft, nontender, nondistended. Bowel sounds are positive. LABORATORY DATA: White count 6, hemoglobin and hematocrit 11 and 34, platelets 309,000. INR 3.1. Basic is normal. PROBLEM LIST: 1. Ischemic foot with severe peripheral vascular disease and probably an arterial stent, which I think is a femoral arterial stent that is not patent, so Walker is looking better when I left so plan is for revascularization on Friday. He has recommended holding his Coumadin and we will monitor his INR. I would consider reinitiating short-term anticoagulation until surgery, with heparin or low-molecular weight heparin when INR is less than 2. 2. Coagulopathy, as discussed. We will continue. INR goal is above 2.5. I would say for purposes of surgery, above 2 is sufficient. 3. Hypertension is stable. 4. Chronic obstructive pulmonary disease, appears to be compensated currently. DISPOSITION: Pending his clinical status. We will continue to follow. cc: Jaden Leavitt MD
[2018-05-08] MEDS ORDERED: PERCOCET-10 PO PRN (18:57)
[2018-05-08] MEDS ORDERED: FLU VACCINE IM ONE (19:00)
[2018-05-08] MEDS ORDERED: PNEUMOVAX 23 IM ONE (19:00)
[2018-05-08] MEDS: REQUIP PO SCH (20:45)
[2018-05-08] MEDS: LIPITOR PO SCH (20:45)
--- NOTE | 2018-05-09 02:25 | Extremity Venous Study ---
PROCEDURE NAME: Vein Mapping Left GSV - 05/07/2018 REFERRING PHYSICIAN: Ronaldo. READING PHYSICIAN: Sindhu. HAZARDOUS WASTE REMOVER: Velma. INDICATION: Evaluate for lower extremity bypass. FINDINGS: The left greater saphenous vein was imaged. It was compressible and patent throughout its course. Proximally, in zone 1, it measured 5.6 mm, and then distally it measured 4.8, 4.5, 3.9 and 3.9 mm in the thigh, and then 3.3, 2.8, and 2.7 mm in the calf. There are a couple of branches in the mid thigh. INTERPRETATION: The left greater saphenous vein appears to be suitable for lower extremity bypass. cc: MD Mynor Hernandez MD
[2018-05-09] MEDS: DILAUDID IV PRN ×5 (04:01→20:43)
[2018-05-09] MEDS: PRILOSEC PO SCH ×2 (05:55→09:34)
[2018-05-09] MEDS: PERCOCET-10 PO PRN ×2 (06:08→20:06)
[2018-05-09 06:55] LABS: BASO# 0.07 X1000 (0.0-0.2); BASO% 0.9 % (0.0-0.8); EOS# 0.31 X1000 (0.0-0.7); EOS% 3.9 % (0.0-10.0); HEMATOCRIT 36.5 % (42.0-52.0); HEMOGLOBIN 11.7 g/dL (14.0-18.0); IMM GRAN# 0.03 X1000 (0.0-0.04); IMM GRAN% 0.4 % (0.0-0.5); LYMPH# 1.87 X1000 (1.2-3.4); LYMPH% 23.5 % (20.5-51.1); MCH 30.1 PG (27-31); MCHC 32.1 g/dL (33-37); MCV 93.8 FL (81-99); MONO# 0.61 X1000 (0.11-0.59); MONO% 7.7 % (1.7-9.3); MPV 10.2 FL (7.4-10.4); NEUT# 5.06 X1000 (1.4-6.5); NEUT% 63.6 % (42.2-75.2); PLT 323 X1000 (130-400); RBC 3.89 XMIL (4.7-6.1); RDW 13.8 % (11.5-14.5); WBC 7.95 X1000 (4.8-10.8)
[2018-05-09 07:04] LABS: INR 2.21; PROTIME 26.2 Seconds (11.0-16.0)
[2018-05-09 07:13] LABS: AGAP 11; BUN 17 mg/dL (8-22); CALCIUM 9.6 mg/dL (8.8-10.2); CHLORIDE 95 mmol/L (98-107); COSMO 275; CREATININE 0.8 mg/dL (0.7-1.2); ESTIMATED GFR > 60; GLUCOSE 161 mg/dL (70-104); POTASSIUM 5.1 mmol/L (3.5-5.1); SODIUM 135 mmol/L (136-145); TCO2 29 mmol/L (25-35)
[2018-05-09] MEDS ORDERED: FLU VACCINE IM ONE (09:00)
[2018-05-09] MEDS ORDERED: PNEUMOVAX 23 IM ONE (09:00)
[2018-05-09] MEDS: AVODART PO SCH (10:13)
[2018-05-09] MEDS: LYRICA PO SCH ×2 (10:14→20:05)
[2018-05-09] MEDS: FLOMAX PO SCH (10:14)
[2018-05-09] MEDS: PLETAL PO SCH ×2 (10:14→20:05)
[2018-05-09] MEDS: NORVASC PO SCH (10:14)
[2018-05-09] MEDS: MIRALAX PO SCH (10:14)
--- NOTE | 2018-05-09 10:23 | PROGRESS NOTE ---
DATE: 05/09/2018 SUBJECTIVE: Mr. Oro was admitted on 04/26/2018. He is 62 years old, who presented with syncopal episode. He came to the [facility]. He reported that he had been sitting on his sofa and passed out. Recent surgery on the left leg. Cleaned out his arteries. He states that he has been taking [place], Flexeril, and amitriptyline and had decreased responsiveness. On arrival to the emergency room, laboratory data revealed white blood cell count was 11,270. ProTime and INR were 50 and 5.18. D-dimer is 1.63. Creatinine 1.3. His creatinine on 04/20/2018 was 0.6. PAST MEDICAL HISTORY: Hypertension, hyperlipidemia, COPD, peripheral vascular disease, and superficial femoral artery occlusion. IMPRESSION: 1. He was admitted to the hospital for syncope and altered mental status. Dr. Vázquez evaluated him. Of course, held his Coumadin and need to restart it to maintain flow to the aortofemoral arterial bypass graft to allow the ProTime to come down. He has peripheral vascular disease in both legs. Dr. Higgins to do some surgery on Friday to try to help with revascularization. Coumadin has been held. His ProTime is 26 and INR 2.21 at the present time but is steadily coming down. 2. Coagulopathy as above. I would like to get INR goal above 2.5 but we will allow it to go down and, I guess, put him on either IV heparin or Lovenox. Plan his surgery on Friday. 3. Hypertension. 4. Chronic obstructive pulmonary disease. No sign of exacerbation. Air and gas exchange look good. They did venous mapping. The left greater saphenous vein appears to be stable for lower extremity bypass. So, plan is to do femoral-femoral bypass as well as femoral popliteal bypass on Friday. We will continue current orders and medication. MEDICATIONS: 1. The patient is getting Requip 0.5 mg at bedtime. 2. Dilaudid 2 mg IV q. 3 hours p.r.n. 3. Norvasc 10 mg a day. 4. Lipitor 40 mg at bedtime. 5. Pletal 100 mg b.i.d. 6. Klonopin 0.5 mg p.o. q.6 hours p.r.n. 7. Avodart 0.5 mg a day. 8. Prilosec 40 mg a day. 9. Oxycodone 10 mg q.4 hours p.r.n. 10. MiraLAX 17 g daily. Lyrica 300 mg b.i.d. 11. Flomax 0.4 mg a day. 12. Umeclidinium bromide 1 puff daily. REVIEW OF HIS OTHER LABORATORY DATA: Chemistries look good. Creatinine 0.7. Hematocrit 36, hemoglobin 11. cc: Garcia Haile MD
[2018-05-09] MEDS: VANCOMYCIN 1 GM/NS 1 GM/250 ML IVPB IV SCH ×2 (13:05→22:59)
[2018-05-09] MEDS: SANTYL OINT TOP SCH (13:05)
--- NOTE | 2018-05-09 13:45 | GENERAL SURGERY PROGRESS NOTE ---
DATE: 05/09/2018 DATE AND TIME: Date 05/09/2018, is 9:55 in the morning. SUBJECTIVE: Mr. Oro is doing generally well. Vital Signs: He is afebrile. Heart rate 120, blood pressure 101/51. LABORATORY: White count 7900, hemoglobin 11.7. Pro time was 26.2. INR 2.2. BUN 17, creatinine 0.8. ASSESSMENT AND PLAN: His left groin wound has an area of skin dehiscence. We will culture the wound there and use Santyl. His left foot has some eschar on the anterior aspect on the left heel as well. We will empirically start him on antibiotics for his left groin wound. This wound in his left groin may delay his surgery because of the fact we will be using a prosthetic. cc: Mynor Higgins MD
[2018-05-09] MEDS: LIPITOR PO SCH (20:05)
[2018-05-09] MEDS: REQUIP PO SCH (20:05)
[2018-05-10] MEDS: DILAUDID IV PRN ×5 (00:15→22:53)
[2018-05-10] MEDS: PRILOSEC PO SCH ×2 (05:55→06:49)
[2018-05-10] MEDS: PERCOCET-10 PO PRN ×4 (06:42→21:20)
[2018-05-10 07:17] LABS: INR 1.64; PROTIME 20.6 Seconds (11.0-16.0)
--- NOTE | 2018-05-10 08:22 | GENERAL SURGERY PROGRESS NOTE ---
DATE: 05/10/2018 SUBJECTIVE: Vital signs: He is afebrile. Heart rate is 122, blood pressure 121/62. Integument: His left groin wound is superficial. LABORATORY: Cultures are pending. ASSESSMENT AND PLAN: We are using Santyl, treating with vancomycin in hopes that we can proceed on Friday. cc: Mynor Higgins MD
[2018-05-10] MEDS: LYRICA PO SCH ×2 (10:25→21:23)
[2018-05-10] MEDS: MIRALAX PO SCH (10:26)
[2018-05-10] MEDS: SANTYL OINT TOP SCH (10:26)
[2018-05-10] MEDS: NORVASC PO SCH (10:26)
[2018-05-10] MEDS: VANCOMYCIN 1 GM/NS 1 GM/250 ML IVPB IV SCH ×2 (10:26→21:26)
[2018-05-10] MEDS: FLOMAX PO SCH (10:26)
[2018-05-10] MEDS: AVODART PO SCH (10:26)
[2018-05-10] MEDS: PLETAL PO SCH ×2 (10:26→21:21)
[2018-05-10] MEDS: KLONOPIN PO PRN (12:13)
--- NOTE | 2018-05-10 13:01 | PROGRESS NOTE ---
DATE: 05/10/2018 SUBJECTIVE: He feels good. No pain at this time. Eating well. His bowels are moving. Left foot wrapped, but not in pain at this point. OBJECTIVE: Vital signs: Temperature 97.9 degrees, pulse 122, blood pressure 121/62. HEENT: Pupils are equal and round. Lungs: Clear in all lung samson. Cardiovascular: Regular rhythm and rate without murmur or S3. Abdomen: Soft. Skin: Warm and dry. ASSESSMENT AND PLAN: 1. Continue his topical Santyl treatment. He is on vancomycin. Planning for surgery, I think it is a fem-fem bypass, on Friday. His left groin wound has an area of skin dehiscence, so continue topical care. 2. Coagulopathy. INR is 1.6 and PT was 20. INR came down from 2.2 yesterday. Getting ready for surgery. 3. Hypertension. 4. Chronic obstructive pulmonary disease. No issues with air exchange or gas exchange at the present time. 5. Review of his orders. I do not see any change at this point. Blood pressure appears to be well controlled. cc: Garcia Haile MD
[2018-05-10] MEDS: LIPITOR PO SCH (21:20)
[2018-05-10] MEDS: REQUIP PO SCH (21:21)
[2018-05-11] MEDS: DILAUDID IV PRN ×5 (05:11→21:19)
[2018-05-11] MEDS: PERCOCET-10 PO PRN ×4 (06:56→23:09)
[2018-05-11] MEDS: PRILOSEC PO SCH (06:56)
[2018-05-11 07:00] LABS: INR 1.43; PROTIME 18.6 Seconds (11.0-16.0)
[2018-05-11] MEDS: NORVASC PO SCH (08:31)
[2018-05-11] MEDS: PLETAL PO SCH ×2 (08:31→21:23)
[2018-05-11] MEDS: LYRICA PO SCH ×2 (08:32→21:22)
[2018-05-11] MEDS: AVODART PO SCH (08:32)
[2018-05-11] MEDS: FLOMAX PO SCH (08:32)
[2018-05-11] MEDS: MIRALAX PO SCH (08:32)
[2018-05-11] MEDS: SANTYL OINT TOP SCH (08:38)
[2018-05-11] MEDS: VANCOMYCIN 1 GM/NS 1 GM/250 ML IVPB IV SCH ×2 (09:17→23:03)
--- NOTE | 2018-05-11 09:44 | PROGRESS NOTE ---
DATE: 05/11/2018 SUBJECTIVE: Mr. Oro has no complaints, was sitting up. He is awake. He states his appetite is good. He is breathing comfortable, is scheduled for surgery in the morning. OBJECTIVE: Temp 97.5 degrees, pulse 110, respirations 20, blood pressure 111/87.HEENT: Pupils are equal. Lungs: Clear in all lung samson. Cardiovascular: Regular rate without murmur or S3. Abdomen: Soft. Skin: Warm and dry. ASSESSMENT AND PLAN: 1. Ischemic foot with peripheral vascular disease. Plan I think he has a fem-fem bypass tomorrow. His INR is 1.4 with a ProTime of 18, been holding his Coumadin. 2. Coagulopathy. Had been holding Coumadin. INR has been coming down nicely. 3. Diabetes mellitus. Blood sugars under good control. 4. Review of his orders. He got his Pneumovax and flu vaccination. He is on Requip 0.5 mg at bedtime, Norvasc 10 mg a day, Lipitor 40 mg at bedtime. 5. Pletal 100 mg b.i.d. 6. Klonopin 0.5 mg q.6 hours p.r.n. getting topical collagenase. He takes Avodart 0.5 mg daily. 7. Prilosec 40 mg a day. Oxycodone 10 mg q.4 hours. MiraLAX 17 g daily. Lyrica 300 mg b.i.d., Flomax 0.4 mg a day and he has taken Incruse Ellipta which is an inhaler. Umeclidinium 1 puff daily. Continue present regimen. cc: Garcia Haile MD
--- NOTE | 2018-05-11 13:44 | GENERAL SURGERY PROGRESS NOTE ---
DATE: 05/11/2018 Mr. Oro is schedule for fem-fem bypass tomorrow as well as a femoral popliteal in situ vein bypass. He is on vancomycin regarding his left groin incisional wound. He understands the benefits and risks and wants to proceed. He understands there is no guarantee of success. cc: Mynor Higgins MD
[2018-05-11] MEDS: REQUIP PO SCH (21:22)
[2018-05-11] MEDS: LIPITOR PO SCH (21:23)
[2018-05-12] MEDS: DILAUDID IV PRN ×5 (01:08→20:32)
[2018-05-12] MEDS: KLONOPIN PO PRN (05:21)
[2018-05-12] MEDS: PRILOSEC PO SCH (07:36)
[2018-05-12] MEDS ORDERED: DIPRIVAN 1% ONE (07:48)
[2018-05-12] MEDS ORDERED: XYLOCAINE-MPF 2% ONE (07:49)
[2018-05-12] MEDS ORDERED: QUELICIN (DOSE) ONE (07:49)
[2018-05-12] MEDS ORDERED: SODIUM CHLORIDE 0.9% 10 ML ONE (07:49)
[2018-05-12] MEDS ORDERED: NORCURON ONE ×3 (07:49→12:35)
[2018-05-12] MEDS ORDERED: PEPCID ONE (09:08)
[2018-05-12] MEDS ORDERED: REGLAN ONE (09:08)
[2018-05-12] MEDS ORDERED: DUONEB (A & A) INH ONE (09:19)
[2018-05-12] MEDS ORDERED: VANCOMYCIN 1 GM/NS 1 GM/250 ML IVPB ONE (09:33)
[2018-05-12] MEDS ORDERED: SENSORCAINE-MPF 0.5%/EPI 1:200,000 ONE (09:36)
[2018-05-12] MEDS ORDERED: KEFZOL ONE ×3 (09:36→13:14)
[2018-05-12] MEDS ORDERED: NS 2,000 ML ONE (09:36)
[2018-05-12] MEDS ORDERED: HEPARIN ONE ×2 (09:36)
[2018-05-12] MEDS: VANCOMYCIN 1 GM/NS 1 GM/250 ML IVPB IV SCH ×2 (09:42→22:27)
[2018-05-12] MEDS ORDERED: NEO-SYNEPHRINE ONE ×2 (10:08→11:52)
[2018-05-12] MEDS ORDERED: HEPARIN (DOSE) ONE (10:40)
[2018-05-12] MEDS ORDERED: CALCIUM CHLORIDE SYRINGE ONE (11:40)
[2018-05-12] MEDS ORDERED: PAPAVERINE ONE (12:20)
[2018-05-12 12:44] LABS: URINE SOURCE CATH
[2018-05-12 12:57] LABS: BILIRUBIN URINE NEGATIVE (NEGATIVE); BLOOD URINE NEGATIVE (NEGATIVE); COLOR STRAW; GLUCOSE URINE NEGATIVE (NEGATIVE); KETONE URINE NEGATIVE (NEGATIVE); LEUKOCYTES URINE NEGATIVE (NEGATIVE); NITRITE URINE NEGATIVE (NEGATIVE); PH URINE 6.5; PROTEIN URINE NEGATIVE (NEGATIVE); TURBIDITY URINE CLEAR (CLEAR); UR EPITHELIAL CELLS <10 /HPF (<10); URINE BACTERIA NEGATIVE /HPF; URINE RBC <10 /HPF (<10); URINE WBC <10 /HPF (<10); UROBILINOGEN URINE NORMAL (NORMAL)
--- NOTE | 2018-05-12 13:17 | VASCULAR LAB ---
DATE: 05/11/2018 INDICATIONS: Evaluate for surgery. The greater saphenous vein is compressible at each location with no evidence of superficial venous thrombosis. Starting at zone 1, approximately 7.7 mm. Zone 2 palpable, 1 mm. Zone 3, 4.9 mm. Zone 4, 4.4 mm. Zone 5, 4.2 mm. Zone 6, 2.9 mm. Zone 7, 3.0 mm. Zone 8, 3.5 mm. IMPRESSION: There was adequate conduit in the upper leg. The vein does appear to become more small distally and more marginal, but it is compressible with no evidence of superficial venous thrombosis. cc: MD Mynor Reed MD
[2018-05-12] MEDS ORDERED: OFIRMEV 1000 MG/ISOTONIC SOLN 1,000 MG/100 ML BOTTLE ONE (13:19)
[2018-05-12] MEDS ORDERED: NEOSTIGMINE ONE (13:30)
[2018-05-12] MEDS ORDERED: ROBINUL ONE (13:30)
[2018-05-12] MEDS: MORPHINE ONE ×3 (13:51→14:00)
[2018-05-12] MEDS: NORVASC PO SCH (13:53)
[2018-05-12] MEDS: LYRICA PO SCH ×2 (13:53→20:35)
[2018-05-12] MEDS: MIRALAX PO SCH (13:53)
[2018-05-12] MEDS: PLETAL PO SCH ×2 (13:53→20:35)
[2018-05-12] MEDS: AVODART PO SCH (13:54)
[2018-05-12] MEDS: FLOMAX PO SCH (13:54)
[2018-05-12] MEDS: DILAUDID ONE ×3 (14:00→14:14)
[2018-05-12 14:37] LABS: POTASSIUM 4.1 mmol/L (3.5-5.1)
[2018-05-12] MEDS: SANTYL OINT TOP SCH (15:03)
--- NOTE | 2018-05-12 15:15 | OPERATIVE NOTE ---
PROCEDURE DATE: 05/12/2018 PROCEDURE: 1. Femoral-femoral bypass. 2. Left femoral to popliteal in situ vein bypass. SURGEON: Mynor Higgins MD. DIRECTOR PRINT: Apolinar Zamora RN. PREOPERATIVE DIAGNOSIS: 1. Thrombosis right limb of aortobifemoral graft. 2. Ischemic ulceration the left foot with left superficial femoral artery occlusion. POSTOP DIAGNOSIS: 1. Thrombosis right limb of aortobifemoral graft. 2. Ischemic ulceration the left foot with left superficial femoral artery occlusion. INDICATIONS: This was done for ischemia to his right leg and limb salvage to the left leg due to ulcerations of his foot and ankle. DESCRIPTION OF PROCEDURE: Satisfactory general endotracheal anesthesia achieved. Both groins, left leg were prepped and draped in a sterile fashion. The foot and lower calf were excluded on the left. An Ioban drape used. Prophylactic vancomycin was given. We incised the skin in the old incision and excised a area of slight skin separation in the right groin. We dissected through the subcutaneous tissue down to the common femoral artery with the graft coming into the common femoral. His arteriotomy site was identified. No flow was present. We surrounded the deep femoral with a superficial femoral vessel loop in the graft as well. An antibiotic sponge was placed. We turned our attention the left groin, did a similar incision with excising the slight wound area in the midaspect of the old incision. We discarded the knife that we used there in order to not any contaminate the wound otherwise. We then dissected deep into the tissue here and exposed the graft as it came through under the inguinal ligament. We identified where we had done the previous patch. We surrounded the proximal graft with umbilical tape. We dissected out the superficial femoral and surrounded with a vessel loop. We identified the profunda but we did not dissect it out completely. There was pulsatile flow in the graft. We had stopped his Coumadin 2 days previously and he had no Coumadin coagulopathy time of the surgery. Then obtained an 8 mm Hemashield Gold graft. It was collagen impregnated to Dacron graft and used a Dossick tunneler to tunnel it from 1 groin to the other. We then gave the patient 8000 units of heparin after it circulated for 3 minutes. We then clamped off the graft proximally and distally which excluded the profunda. We then made a medial graftotomy and extended with the scissors so that we could do an end-to-side anastomosis using a 5-0 Prolene stitch. Upon completion of that we then reinstituted flow in the previously placed aortobifemoral graft into the nome left common femoral artery. Hemostasis at the anastomosis was satisfactory. We then turned our attention the right groin and we opened the old jack of the artery and extended with the Gomes scissors. We did pass a 4 Tiffany down the profunda and removed what debris was present and then probed the profunda to a 5 dilator and good back bleeding was present. We then cut the graft to match this graftotomy and constructed that anastomosis also with a 5-0 Prolene stitch. Upon completing that we then allowed flow. One additional stitch was required for complete hemostasis. After satisfactory hemostasis we irrigated with antibiotic solution and then closed the right groin and the subcutaneous tissue in 2 layers using a 3-0 Polysorb pops and a 3- 0 Polysorb running stitch. We went back to the left groin and closed the subcutaneous tissue over the femoral- femoral graft. We then dissected out the greater saphenous vein as it came to the common femoral vein. We clamped off the greater saphenous vein at the junction of the femoral vein and transected it. We over sewed the stump with a 5-0 Prolene stitch in 2 layers. We then inspected the opening to the vein and identified some small valves 1 that we cut, 1 that we lysed with an antegrade valvulotome. As we stretched it over to the artery we realized it would reach the proximal SFA but not the common so we had to actually open the proximal SFA where there was occlusion and we dilated back into the common femoral and we dilated it to a 5 and then got excellent antegrade flow. This was right at where the stent was taking off and I excised the stent that was in the way but when we probed into the common femoral, we got excellent antegrade flow and as I said, we used up to a 5 probe. The proximal SFA arteriotomy was then opened to a 4- 1/2 punch and we then constructed the anastomosis with a 5-0 Prolene stitch and allowed flow into the vein graft. It was pulsatile at this takeoff. Again an antibiotic sponge was placed in the wound in the left groin. We then turned our attention the distal medial thigh. I made a longitudinal incision dissected into the popliteal space and identified the popliteal artery. We identified the greater saphenous vein on the subcutaneous tissue of the inferior flap and we dissected it out to the knee level. We identified a branch and introduced the Glidewire through branch in the more proximal end of the incision and passed the Glidewire through the proximal anastomosis. We then followed this with the LeMaitre valvulotome. We passed LeMaitre valvulotome 2 times and after doing so we had pulsatile flow into the vein graft to the entrance of the LeMaitre valvulotome. I then removed the LeMaitre valvulotome the wire and clipped off that branch. We then turned our attention to the very distal end of the incision and made a small venotomy there and passed our retrograde valvulotome up to where we had exited the vein with the LeMaitre valvulotome and lysed the valves in the remaining segment of vein both anteriorly and posteriorly until we got pulsatile flow at the distal end of the vein at the distal end of our incision. We then clipped it off, divided it, clipped it off distally and then mobilized the vein up to the proximal end of the incision. We swung it into the popliteal space to come down to the artery. Prior to clipping it off I did infuse 120 mg of papaverine into the vein graft to the let it sit and pulsate in the vein graft to keep it from spasming. This was 120 mg diluted to 10 mL, but like I said we clipped it off and then was mobilized it to translocate in the popliteal space. We then opened the artery. We had good back bleeding. We passed a 5 probe into the popliteal easily. We then after making the arteriotomy extended with the Gomes scissors. We then cut the vein graft to match the arteriotomy. We had a bulldog clamp proximally to stop the flow in the vein graft. We then constructed this anastomosis using a 6-0 Prolene stitch. As we finished we then allowed flow in the nome artery as well as the vein graft and a good pulsatile flow was present into the nome artery. Hemostasis was satisfactory the anastomosis. The hemostasis was satisfactory in the groin area. We again irrigated with Kefzol- impregnated saline. We continued to close the subcutaneous tissue over the vein graft interrupted 3- 0 Polysorb then the 3-0 Polysorb running. We cut down on a spot in the medial thigh where a branch was located and when we found that branch we clipped it off. Another branch was present just a little proximal to our popliteal incision and we identified and clipped it as well. These were the identifiable branches that were in the thigh region. We then placed 3-0 Polysorbs in the subcutaneous tissue of the wounds. We had another 3-0 Polysorb running in the subcutaneous tissue of the popliteal space wound. We then closed the skin of every incision with sharron. Sterile dressings were applied. He tolerated the procedure well. Lost about 2000 mL of blood, was receiving his 3rd unit of blood the time of the end of the procedure. cc: Mynor Higgins MD MTDD
--- NOTE | 2018-05-12 17:42 | PROGRESS NOTE ---
DATE: 05/12/2018 SUBJECTIVE: This afternoon Mr. Oro refers to be doing fairly okay. He just came out of the OR after vascular surgery. OBJECTIVE: Vital Signs: Blood pressure is 117/52, pulse of 108, respirations 18, temperature 98.6 degrees. General: Mr. Oro is a 62-year-old gentleman. He was in bed, in no distress. HEENT: Mucosa is pink and moist. Anicteric. Acyanotic. Neck: Supple. Chest: Air entry is bilaterally reduced. There is some end-expiratory mild wheezing. Cardiovascular: Regular rate and rhythm. Abdomen: Soft, nontender. Bowel sounds present. Extremities: There was no pedal edema. There is a patch over the right inguinal region. The pulse to the distal right is remarkably reduced, almost imperceptible. The left has dried necrotic toes, especially the big toe. There is some sterile dressing over the left foot itself, so I am not sure what is going on there. There is also a sterile dressing over the midcalf. LABORATORY DATA: Hematocrit is 33.9. Chemistry is also reviewed and unremarkable. SURGERY PERFORMED: The surgery report shows surgery done was femoral-femoral bypass. There is a left femoral to popliteal in situ vein bypass. ASSESSMENT AND PLAN: 1. Severe peripheral artery disease with ischemic left foot. The patient is status post femoral- femoral bypass and a left femoral to popliteal in situ vein bypass today. We will re evaluate his lower extremities tomorrow and follow up with further recommendation from Vascular Surgery. 2. Diabetes mellitus. We will continue with adequate glucose control. 3. Supratherapeutic INR due to Coumadin therapy. This was withheld. However, I think we can restart this if it is okay with Surgery. 4. History of chronic obstructive pulmonary disease, currently not in exacerbation. 5. Hypertension, controlled. cc: Dave Rojo MD
[2018-05-12] MEDS: PERIDEX MT SCH (20:35)
[2018-05-12] MEDS: LIPITOR PO SCH (20:35)
[2018-05-12] MEDS: REQUIP PO SCH (20:35)
[2018-05-12] MEDS: PERCOCET-10 PO PRN (22:26)
--- NOTE | 2018-05-13 02:54 | GENERAL SURGERY PROGRESS NOTE ---
DATE: 05/12/2018 It is 6:12 p.m. Mr. Oro is doing generally well. His legs are warm. His bandages are dry. His postop hematocrit was 33.9. The plan will be to check his labs in the morning. We will probably start him back on his Coumadin tomorrow since it will take a couple of days for him to get back to adequate anticoagulation. I am pleased with his progress thus far. cc: Mynor Higgins MD
[2018-05-13] MEDS: DILAUDID IV PRN ×6 (03:09→21:45)
[2018-05-13] MEDS: PRILOSEC PO SCH (06:14)
[2018-05-13 06:55] LABS: BASO# 0.07 X1000 (0.0-0.2); BASO% 0.8 % (0.0-0.8); EOS# 0.35 X1000 (0.0-0.7); EOS% 3.8 % (0.0-10.0); HEMATOCRIT 31.1 % (42.0-52.0); HEMOGLOBIN 10.3 g/dL (14.0-18.0); LYMPH# 1.32 X1000 (1.2-3.4); LYMPH% 14.4 % (20.5-51.1); MCH 30.6 PG (27-31); MCHC 33.1 g/dL (33-37); MCV 92.3 FL (81-99); MONO# 0.56 X1000 (0.11-0.59); MONO% 6.1 % (1.7-9.3); MPV 10.3 FL (7.4-10.4); NEUT# 6.88 X1000 (1.4-6.5); NEUT% 74.9 % (42.2-75.2); PLT 228 X1000 (130-400); RBC 3.37 XMIL (4.7-6.1); RDW 14.9 % (11.5-14.5); WBC 9.18 X1000 (4.8-10.8)
[2018-05-13 07:56] LABS: AGAP 10; BUN 6 mg/dL (8-22); CALCIUM 8.7 mg/dL (8.8-10.2); CHLORIDE 103 mmol/L (98-107); COSMO 275; CREATININE 0.7 mg/dL (0.7-1.2); ESTIMATED GFR > 60; GLUCOSE 131 mg/dL (70-104); POTASSIUM 3.6 mmol/L (3.5-5.1); SODIUM 138 mmol/L (136-145); TCO2 25 mmol/L (25-35)
[2018-05-13] MEDS: FLOMAX PO SCH (08:06)
[2018-05-13] MEDS: PLETAL PO SCH ×2 (08:06→21:46)
[2018-05-13] MEDS: PERCOCET-10 PO PRN ×4 (08:06→23:35)
--- NOTE | 2018-05-13 08:06 | GENERAL SURGERY PROGRESS NOTE ---
DATE: 05/13/2018 TIME: 7:50 a.m. SUBJECTIVE: Mr. Oro is first postoperative day after his femoral-femoral bypass and his left femoral-popliteal in situ vein bypass. Both legs are warm. His bandages are dry. He has flow in his vein graft. The plan is to restart his Coumadin today. We will continue Xeroform on his foot. Eventually, we will debride the eschars after his foot has had a chance to reperfuse and heal. cc: Mynor Higgins MD
[2018-05-13] MEDS: PERIDEX MT SCH ×2 (08:07→21:46)
[2018-05-13] MEDS: LYRICA PO SCH ×2 (08:07→21:45)
[2018-05-13] MEDS: AVODART PO SCH (08:07)
[2018-05-13] MEDS: NORVASC PO SCH (08:07)
[2018-05-13] MEDS: MIRALAX PO SCH (08:08)
[2018-05-13] MEDS: SANTYL OINT TOP SCH (08:22)
[2018-05-13] MEDS: VANCOMYCIN 1 GM/NS 1 GM/250 ML IVPB IV SCH ×2 (10:17→21:46)
--- NOTE | 2018-05-13 13:25 | PROGRESS NOTE ---
DATE: 05/13/2018 SUBJECTIVE: This morning Mr. Oro refers to be doing fairly okay. He said he has already been seen early on by surgery. The wound has been reviewed by the surgical team. OBJECTIVE: Vital signs: Blood pressure is 101/50, pulse was 105, temperature 97.9 degrees, and respiratory rate was 18. The patient was saturating 95% on room air. General: Mr. Oro is a 62-year-old gentleman. He was in bed, in no distress. HEENT: Mucosa is pink and moist. Anicteric. Acyanotic. Neck: Supple. Chest: Good air entry bilaterally. There were no crepitations. No rhonchi. Cardiovascular: Regular rate and rhythm. No murmurs. No rubs. No gallops. Abdomen: Soft, nontender. Bowel sounds present. Extremities: Both lower extremities look pink. I could not feel any pulse. The left lower extremity was in sterile dressing. LABORATORY DATA: WBC is 9.18, hemoglobin is 10.3, platelet count of 228,000. Chemistry is also reviewed, completely normal. CURRENT MEDICATIONS: Have all been reviewed. Coumadin has been started this morning. He is also on vancomycin per pharmacy protocol; today is day 4. Other medications have all been reviewed. ASSESSMENT: 1. Severe peripheral vascular disease with ischemic left foot. The patient is status post femoral-femoral bypass and left femoral to popliteal in situ vein bypass. Today is day 1 postop. Per the surgical notes, it appears there is flow in the vein graft. 2. Diabetes mellitus. We will continue with sliding scale insulin. 3. Supratherapeutic INR on presentation due to Coumadin therapy. Coumadin was withheld. INR has normalized. It is actually now subtherapeutic, so he has been restarted back on his Coumadin. 4. History of chronic obstructive pulmonary disease. Currently not in exacerbation. 5. Hypertension is controlled. 6. Benign prostatic hypertrophy. The patient is on Avodart. cc: Dave Rojo MD
[2018-05-13] MEDS: REQUIP PO SCH (21:46)
[2018-05-13] MEDS: COUMADIN PO SCH (21:46)
[2018-05-13] MEDS: LIPITOR PO SCH (21:46)
[2018-05-13] MEDS: KLONOPIN PO PRN (23:35)
[2018-05-14] MEDS: DILAUDID IV PRN ×5 (00:34→20:24)
[2018-05-14] MEDS: PRILOSEC PO SCH ×2 (05:51→06:45)
[2018-05-14] MEDS: PERCOCET-10 PO PRN ×4 (06:08→21:46)
[2018-05-14 06:22] LABS: INR 1.15; PROTIME 15.7 Seconds (11.0-16.0)
[2018-05-14] MEDS: REQUIP PO SCH (08:25)
--- NOTE | 2018-05-14 09:58 | GENERAL SURGERY PROGRESS NOTE ---
DATE: 05/14/2018 TIME: 9:35 in the morning. This is his second postoperative day after his femoral-femoral bypass and left femoral-popliteal in situ vein bypass. He is afebrile. Heart rate 114, blood pressure 133/52. He has graft flow. Both lower extremities are warm. His pro time today is 15.7 with INR 1.15. We have started him back on Coumadin 4 mg at bedtime, which is usual dose. When his INR gets out adequate, then it would be fine for me to allow him to go home. He ultimately will require debridement of his ankle, but not yet. We will remove his Gary today as well. cc: Mynor Higgins MD
[2018-05-14] MEDS: VANCOMYCIN 1 GM/NS 1 GM/250 ML IVPB IV SCH (10:23)
[2018-05-14] MEDS: LYRICA PO SCH ×2 (10:24→20:23)
[2018-05-14] MEDS: NORVASC PO SCH (10:24)
[2018-05-14] MEDS: MIRALAX PO SCH (10:24)
[2018-05-14] MEDS: PLETAL PO SCH ×2 (10:24→20:22)
[2018-05-14] MEDS: PERIDEX MT SCH ×2 (10:25→20:24)
[2018-05-14] MEDS: AVODART PO SCH (10:25)
[2018-05-14] MEDS: FLOMAX PO SCH (10:25)
[2018-05-14] MEDS: SANTYL OINT TOP SCH (10:47)
[2018-05-14] MEDS: COUMADIN PO SCH (20:23)
[2018-05-14] MEDS: LIPITOR PO SCH (20:24)
[2018-05-14] MEDS: KLONOPIN PO PRN (21:24)
[2018-05-15] MEDS: DILAUDID IV PRN (01:05)
[2018-05-15] MEDS: VANCOMYCIN 1 GM/NS 1 GM/250 ML IVPB IV SCH ×2 (01:06→12:58)
--- NOTE | 2018-05-15 01:28 | PROGRESS NOTE ---
DATE: 05/14/2018 SUBJECTIVE: This morning Mr. Oro referred to be doing fairly okay. He still has a lot of pain in his left leg. Today is day 2 post intervention. OBJECTIVE: Vital Signs: Blood pressure is 124/53, pulse is 107, respirations 20, temperature is 98 degrees. General: Mr. Oro is a 62-year-old gentleman who was sitting up in a chair. He did not seem to be in any distress. Heent: Mucosa is pink and moist. Anicteric. Acyanotic. Neck: Supple. Chest: Clear to auscultation. There was no crepitations, no rhonchi. Cardiovascular: Regular rate and rhythm. No murmurs, no rubs, no gallops. Abdomen: Soft and nontender. Bowel sounds present. Extremities: Both looks pink. The wounds on the lower extremities all look well affronted with sharron and there was no any active bleeding. The left lower calf has some sterile dressing. It looks slightly more swollen than the right. LABORATORY DATA: INR is 1.15. ASSESSMENT: 1. Severe peripheral vascular disease with ischemic left foot. The patient is status post femoral bypass and left femoral to popliteal in situ vein bypass, today is day 2 postoperative. The patient has been evaluated by Vascular Surgery, we will continue with their recommendations. 2. Diabetes mellitus is controlled. The patient is on sliding scale insulin. 3. Coumadin therapy. The patient has been started back on his Coumadin. International normalized ratio is slightly subtherapeutic. We will continue with the current dose. 4. History of chronic obstructive pulmonary disease, currently not in exacerbation. 5. Hypertension is controlled. 6. Benign prostatic hypertrophy. The patient is on Avodart. PLAN: So in general I think Mr. Oro is doing fairly okay. Per the surgery notes they seem to be very comfortable with the way the wound looks. There is a plan for debridement but that will be on a later date. For now we are going to continue anticoagulation with Coumadin. We will repeat his INR tomorrow and go from there. cc: MD ROMAN Anguiano
[2018-05-15] MEDS: PERCOCET-10 PO PRN ×5 (05:59→23:19)
[2018-05-15] MEDS: PRILOSEC PO SCH (06:00)
[2018-05-15 06:28] LABS: INR 1.39; PROTIME 18.1 Seconds (11.0-16.0)
--- NOTE | 2018-05-15 08:21 | GENERAL SURGERY PROGRESS NOTE ---
DATE: 05/15/2018 Mr. Oro is now 3 days after his fem-fem bypass, left femoral-popliteal in situ vein bypass. His graft is open. We have restarted his Coumadin. He had some hypoxemia yesterday, which is presumed to be due to narcosis. We will cut off his Dilaudid and leave him on p.o. pain medications. We need to encourage activity in preparation for his discharge. cc: Mynor Higgins MD
[2018-05-15] MEDS: AVODART PO SCH (09:52)
[2018-05-15] MEDS: NORVASC PO SCH (09:52)
[2018-05-15] MEDS: FLOMAX PO SCH (09:52)
[2018-05-15] MEDS: LYRICA PO SCH ×2 (09:52→20:27)
[2018-05-15] MEDS: MIRALAX PO SCH (09:53)
[2018-05-15] MEDS: PERIDEX MT SCH ×2 (09:53→20:29)
[2018-05-15] MEDS: PLETAL PO SCH ×2 (09:53→20:28)
[2018-05-15] MEDS ORDERED: MORPHINE IV ONE (12:29)
--- NOTE | 2018-05-15 17:50 | PROGRESS NOTE ---
DATE: 05/15/2018 SUBJECTIVE: This morning Mr. Oro refers to be doing fairly okay. He was already seen early on today by Surgery. He is still complaining of generalized pains, especially in the lower extremities. OBJECTIVE: Vital signs: Blood pressure is 118/50, pulse is 118, respirations 22, temperature is 97.6 degrees. General: Mr. Oro is a 62-year-old gentleman. He was in bed. No seeming distress. HEENT: Mucosa is pink and moist. Anicteric. Acyanotic. Neck: Supple. Chest: Good air entry bilateral. There were no crepitations, no rhonchi. Cardiovascular: Regular rate and rhythm. No murmurs, no rubs, no gallops. Abdomen: Soft, nontender. Bowel sounds present. Extremities: Both lower extremities look pink. Wounds on the lower extremities are well affronted with sharron. No active bleeding. The left lower extremity is relatively more swollen. The wounds are all covered with sterile dressings. LABORATORY DATA: INR is up to 1.39. ASSESSMENT: 1. Severe peripheral vascular disease with ischemic left foot. The patient is status post femoral-femoral bypass and left [id number] in situ vein bypass. Today is day 3 postoperative. Vascular Surgery is on board. 2. Diabetes mellitus, controlled. The patient is on sliding scale insulin. 3. Coumadin therapy. The patient was admitted with a supratherapeutic INR. However, it is now below normal value. Coumadin has been restarted. Will continue to observe. 4. History of chronic obstructive pulmonary disease, currently not in exacerbation. 5. Hypertension is controlled. 6. Benign prostatic hypertrophy. The patient is on Avodart. 7. Generalized weakness. The patient is getting physical therapy and there is a plan for him to go to rehab once it is okay with Vascular Surgery. I think there is a bed for Mr. Oro at [facility]. cc: Dave Rojo MD
[2018-05-15] MEDS: KLONOPIN PO PRN (18:31)
[2018-05-15] MEDS: SANTYL OINT TOP SCH (19:54)
[2018-05-15] MEDS: COUMADIN PO SCH (20:28)
[2018-05-15] MEDS: LIPITOR PO SCH (20:29)
[2018-05-15] MEDS: REQUIP PO SCH (20:29)
[2018-05-16] MEDS: VANCOMYCIN 1 GM/NS 1 GM/250 ML IVPB IV SCH ×3 (00:49→23:14)
[2018-05-16] MEDS: KLONOPIN PO PRN (00:49)
[2018-05-16] MEDS: PRILOSEC PO SCH ×2 (05:44→06:04)
[2018-05-16 07:00] LABS: INR 1.67
[2018-05-16] MEDS: INCRUSE ELLIPTA INH SCH ×3 (08:05→13:04)
[2018-05-16] MEDS: PERIDEX MT SCH ×2 (08:38→21:08)
[2018-05-16] MEDS: AVODART PO SCH (08:39)
[2018-05-16] MEDS: MIRALAX PO SCH (08:39)
[2018-05-16] MEDS: NORVASC PO SCH (08:39)
[2018-05-16] MEDS: FLOMAX PO SCH (08:39)
[2018-05-16] MEDS: PLETAL PO SCH ×2 (08:39→21:07)
[2018-05-16] MEDS: LYRICA PO SCH ×2 (09:08→21:08)
[2018-05-16] MEDS: PERCOCET-10 PO PRN ×3 (09:14→21:53)
--- NOTE | 2018-05-16 09:34 | GENERAL SURGERY PROGRESS NOTE ---
DATE: 05/16/2018 SUBJECTIVE: The patient is doing okay. No acute events or complaints. OBJECTIVE: Vital Signs: He is afebrile. Vital signs are stable. General: He is awake, alert, and oriented x3. No acute distress. Extremities: Both groin incisions are healing appropriately without redness or drainage. The leg incision is healing in the same fashion. His leg is warm. LABORATORY: INR 1.67. ASSESSMENT/PLAN: A 62-year-old male status post femoral-femoral bypass and left femoral popliteal in situ bypass. He is on Coumadin. We are awaiting appropriate INR levels, and he will be discharged home. He does indicate some trouble walking, so we will check with physical therapy for his readiness to be discharged. cc: Paul Manley MD
[2018-05-16] MEDS: MORPHINE IV PRN ×3 (11:12→20:01)
--- NOTE | 2018-05-16 14:22 | PROGRESS NOTE ---
DATE: 05/16/2018 SUBJECTIVE: This morning, Mr. Oro was actually crying at the bedside because of a lot of pain in his legs, even at rest. OBJECTIVE: Vital signs: Blood pressure was 116/34, pulse 107, respirations 16, temperature 98.8. General: Mr. Oro is a 62-year-old gentleman. He was sitting up on the side of his bed. He was in pain. Mucosa is pink and moist. Anicteric. Acyanotic. Neck supple. Chest: Good air entry bilaterally. There were no crepitations. No rhonchi. Cardiovascular: Regular rate and rhythm. No murmurs, no rubs, no gallops. Abdomen was soft, nontender. Bowel sounds present. Extremities: Both lower extremities seem pink. The left has a dusky coloration to it. The recent surgical wounds of the lower extremity are all well affronted with sharron. They look clean. No active bleeding. The left lower extremity is relatively more swollen and more tender. It has a sterile dressing over the wounds. LABORATORY DATA: None. CURRENT MEDICATIONS: The patient's current medications have also been reviewed. 1. He is on vancomycin 1 g q.12; today is day 6. 2. Coumadin 4 mg. INR this morning is 1.69. ASSESSMENT: 1. Severe peripheral vascular disease with ischemic left foot. Patient is status post femoral- femoral bypass and left [id number] in situ vein bypass. Today is day 4 postop. Vascular surgery is on board. Patient continues to have remarkable pain at rest. 2. Diabetes mellitus controlled. 3. Coumadin therapy. INR this morning is 1.6. We will continue with the current dosing. 4. History of chronic obstructive pulmonary disease not in exacerbation. 5. Hypertension, controlled. 6. Benign prostatic hypertrophy. We will continue with Avodart. 7. Generalized weakness. The patient is getting physical therapy. cc: Dave Rojo MD
[2018-05-16] MEDS: SANTYL OINT TOP SCH (15:28)
[2018-05-16] MEDS: LIPITOR PO SCH (21:07)
[2018-05-16] MEDS: REQUIP PO SCH (21:07)
[2018-05-16] MEDS: COUMADIN PO SCH (21:07)
[2018-05-17] MEDS: MORPHINE IV PRN ×4 (01:14→21:26)
[2018-05-17] MEDS: PERCOCET-10 PO PRN ×4 (04:17→23:57)
[2018-05-17] MEDS: PRILOSEC PO SCH (06:45)
[2018-05-17 06:52] LABS: INR 2.03; PROTIME 24.5 Seconds (11.0-16.0)
[2018-05-17] MEDS: LYRICA PO SCH ×2 (08:50→21:14)
[2018-05-17] MEDS: PERIDEX MT SCH ×2 (08:51→21:15)
[2018-05-17] MEDS: AVODART PO SCH (08:51)
[2018-05-17] MEDS: MIRALAX PO SCH (08:51)
[2018-05-17] MEDS: PLETAL PO SCH ×2 (08:51→21:14)
[2018-05-17] MEDS: FLOMAX PO SCH (08:51)
[2018-05-17] MEDS: NORVASC PO SCH (08:51)
--- NOTE | 2018-05-17 12:50 | PROGRESS NOTE ---
DATE: 05/17/2018 SUBJECTIVE: This morning Mr. Oro referred to be doing a little better. Still has some pain, especially in the left lower extremity. OBJECTIVE: Vital signs: Blood pressure 127/53, pulse is 102, respirations 18, temperature is 97.8 degrees. General exam: Mr. Oro is a 62-year-old male. He is in bed. He is not in any cardiopulmonary distress. HEENT: Mucosa is pink and moist. Anicteric. Acyanotic. Neck: Supple. Chest: Good air entry bilaterally. There are no crepitations and no rhonchi. Cardiovascular: Regular rate and rhythm. No murmurs. No rubs. No gallops. Abdomen: Soft, nontender. Bowel sounds present. Extremities: Left calf is relatively more swollen with erythematous changes, but for most part they look a lot better than days before. Still has the surgical wounds affronted with sharron. CHARGEBACK SPECIALIST: Patient is awake, alert, and oriented. There is no focal neurological deficit. LABORATORY DATA: None for today. ASSESSMENT: 1. Severe peripheral vascular disease with ischemic left foot. The patient is status post femoral-femoral bypass and left femoral to popliteal in situ vein bypass. Today is day 5 postop. Vascular Surgery is on board. The patient's lower extremities look like they are adequately being perfused. 2. Diabetes mellitus, controlled. 3. Coumadin therapy with INR 2.03, which is in therapeutic range. 4. History of chronic obstructive pulmonary disease. Currently not in exacerbation. 5. Hypertension, controlled. 6. Benign prostatic hypertrophy. The patient is on Avodart. 7. Generalized weakness. The patient got physical therapy yesterday. He was able to do 150 feet with minimal assistance with front wheel walker. Disposition. I think now that the patient has attained a therapeutic INR and the lower extremities look like they are getting adequate perfusion, we can safely discharge him to rehab hopefully tomorrow, pending final recommendations from Vascular Surgery. cc: MD ROMAN Anguiano
[2018-05-17] MEDS: VANCOMYCIN 1 GM/NS 1 GM/250 ML IVPB IV SCH (13:23)
--- NOTE | 2018-05-17 15:06 | GENERAL SURGERY PROGRESS NOTE ---
DATE: 05/17/2018 SUBJECTIVE: The patient complains of pain in his right thigh. OBJECTIVE: He is afebrile. Vital signs are stable.General: He is awake, alert, oriented x3. No acute distress. Extremities: The incisions in his groin and left leg are clean, dry, and intact. I do not detect any significant swelling, redness, induration, or other concerning signs on his extremities. LABORATORY: INR is 2.0. ASSESSMENT AND PLAN: A 62-year-old male status post femoral-femoral bypass and left femoral- popliteal bypass with severe peripheral arterial disease. He complains of right leg pain. I am not sure if this is related to his arterial disease or not. His INR is now approaching therapeutic level. Dr. Higgins will reevaluate him tomorrow to assess for any further intervention versus discharge to rehab. cc: Paul Manley MD
[2018-05-17] MEDS: LIPITOR PO SCH (21:14)
[2018-05-17] MEDS: REQUIP PO SCH (21:15)
[2018-05-17] MEDS: COUMADIN PO SCH (21:15)
[2018-05-18] MEDS: VANCOMYCIN 1 GM/NS 1 GM/250 ML IVPB IV SCH ×2 (00:39→11:48)
[2018-05-18] MEDS: MORPHINE IV PRN ×3 (03:49→14:30)
[2018-05-18] MEDS: PERCOCET-10 PO PRN ×2 (06:42→11:22)
[2018-05-18] MEDS: PRILOSEC PO SCH (06:42)
[2018-05-18 06:47] LABS: INR 2.49; PROTIME 28.7 Seconds (11.0-16.0)
[2018-05-18] MEDS: SANTYL OINT TOP SCH (09:03)
[2018-05-18] MEDS: FLOMAX PO SCH (09:03)
[2018-05-18] MEDS: LYRICA PO SCH (09:03)
[2018-05-18] MEDS: AVODART PO SCH (09:04)
[2018-05-18] MEDS: NORVASC PO SCH (09:04)
[2018-05-18] MEDS: PLETAL PO SCH (09:04)
[2018-05-18] MEDS: MIRALAX PO SCH (09:05)
[2018-05-18] MEDS: PERIDEX MT SCH (09:05)
--- NOTE | 2018-05-18 10:32 | GENERAL SURGERY PROGRESS NOTE ---
DATE: 05/18/2018 SUBJECTIVE: Mr. Oro is now 6 days after his fem-fem bypass and left femoral-popliteal in situ vein bypass. OBJECTIVE: Vital signs: He is afebrile, heart rate 104, blood pressure 130/48. Extremities: His wounds all look good. His in situ vein graft is open. His right leg is warm. His left leg is warm. The foot on the left is improved with improvement in the tissue appearance of the ankle. He still has a couple of eschars on the dorsal foot and ankle, but I anticipate these to continue to improve. LABORATORY: His pro time is now out to 28.7, INR 2.5 and that is therapeutic for him. PLAN: I am content to let him go to rehab on Coumadin. He will need to return to see me in the office in a week for staple removal. In the future we will bring him back as an outpatient to debride his foot. I am pleased with his progress thus far. cc: Mynor Higgins MD
[2018-05-18 11:27] VITALS: BP 124/52
--- NOTE | 2018-05-19 03:49 | DISCHARGE SUMMARY ---
ADMISSION DATE: 04/26/2018 DISCHARGE DATE: 05/18/2018 LENGTH OF STAY: 22 days. DISPOSITION: Home. CONSULTATIONS DURING ADMISSION: Surgery was consulted. The patient was seen by Dr. Higgins. INVASIVE PROCEDURES DONE DURING ADMISSION: An initial femoral-femoral bypass, left femoral-to- popliteal in situ venous bypass was done on 05/12/2017. IMAGING STUDIES OF SIGNIFICANCE: A Doppler ultrasound showed proximal occlusion noted on the right side with no waveforms. There is likely disease at the level of the superficial femoral artery at the trifurcation distally. Aorta CTA with runoff did show substantial increased atherosclerotic [place] in the vicinity of the junction of the [place] aorta and aortic graft. There is about 67% occlusion. There is occlusion of the right iliac limb of the aortobifemoral graft. There is also occlusion of the right superficial femoral artery. There is occlusion of the left superficial femoral artery graft. There is to mild to moderate stenosis at the right popliteal artery. ADMISSION DIAGNOSES: 1. Syncope. 2. Altered mental status. 3. Coagulopathy. 4. Acute kidney injury. 5. Elevated D-dimer. DIAGNOSES AT THE TIME OF DISCHARGE: 1. Severe peripheral vascular disease with ischemic left foot. The patient is status post femoral-femoral bypass and left [id number] in situ vein bypass. Today is day 6. The patient has been followed up by Vascular Surgery and has been cleared for discharge. 2. Diabetes mellitus, controlled. 3. Coumadin therapy with current INR of 2.49, which is therapeutic. 4. History of chronic obstructive pulmonary disease, currently not in exacerbation. 5. Hypertension, controlled. 6. Benign prostatic hypertrophy. The patient is on tamsulosin and Avodart. 7. Generalized weakness. The patient had physical therapy. 8. Disposition. The patient had a bed to go to [facility]. However, he declined wanting to go to rehab. 9. Staphylococcus epidermidis wound infection from the groin culture. DISCHARGE MEDICATIONS: 1. Omeprazole 40 mg daily. 2. Avodart 0.5 mg daily. 3. Tamsulosin 0.4 p.o. daily. 4. Flexeril 10 mg daily. 5. Atorvastatin 40 mg daily. 6. Incruse Ellipta inhaler daily. 7. Coumadin 4 mg daily. 8. Lisinopril 10 mg daily. 9. Pregabalin 300 b.i.d. 10. Requip 0.5 p.o. at bedtime. 11. Amitriptyline 100 mg daily. 12. Cilostazol 100 mg p.o. b.i.d. 13. Levofloxacin 250 p.o. daily. PRESENTING COMPLAINT: Blacking out. HISTORY OF PRESENTING COMPLAINT: Mr. Oro is a 62-year-old male who presented to the emergency department at [place] after he was passing out on his sofa. He has been on multiple medications, including [place], Flexeril, and amitriptyline, and he had very decreased responsiveness upon presentation. The patient was evaluated and admitted to [facility] because of decreased responsiveness and syncope, which he improve after most of his psychotropic medications were withheld. However, during the hospital course, the patient was noted to have an ischemic left limb, so he was transferred from [facility] to [facility] for higher level of care. Patient was seen and evaluated by Dr. Higgins. A decision was made to intervene surgically, which was successful. A femoral-femoral bypass and a left [id number]-[id number]-gtporolak in situ vein bypass was done by Dr. Higgins. The patient was seen daily and evaluated by Vascular Surgery. Today, they think there is adequate flow in the bypasses and the patient is now therapeutic on his INR, and can be discharged. From the medical standpoint, I think Mr. Oro is okay for discharge. He has been evaluated multiple times as well by Physical Therapy. Last seen was 3 days ago where he was able to do 150 feet with minimum assistance. He had a bed available at [facility] to continue with physical therapy, however, I am told that he does not want to go there. Mr. Oro is clinically stable for discharge. DISCHARGE TIME: 35 minutes. cc: MD ROMAN Anguiano
== END 2018-05-18 16:16 | disposition home or self-care (01) | DRG 908 ==
LOC: P.ED 21:40 → P.MEDSURG 04-26 00:53 → SUATTDRO 04-26 00:53 → P.MEDSURG 05-04 16:05 → 4N 05-08 18:37
PROVIDERS: ATTEND Internal Medicine
CPT/HCPCS: 36415; 36430; 51702; 75635; 80048; 80051; 80053; 80104; 80301; 80305; 81001; 82948; 83735; 85014; 85025; 85027; 85379; 85610; 86850; 86900; 86901; 86920; 87070; 87077; 87088; 87186; 90686; 90732; 93923; 93971; 94640; 94761; 94799; 97110; 97116; 97163; 97164; 97530; 99285; A9270; C1768; G0431; G0434; G0477; J0131; J0330; J0690; J1170; J1644; J1650; J2270; J2370; J2440; J2765; J3370; J7030; P9016; Q9967; S0028; XXXXX